=== PATIENT | female | born 1945 | race Caucasian/White ===

== ENCOUNTER 2019-10-09 00:37 | Day surgery (SDC) | payer OTHER, SELFPAY ==
[2019-10-02 13:42] VITALS: BMI 26.5
[2019-10-09 06:33] VITALS: BP 153/82; PULSE 119; RESP 20; TEMP 36.2; O2SAT 100
[2019-10-09] MEDS: LACTATED RINGERS 1,000 ML 150 ML IV CONT (06:51)
--- NOTE | 2019-10-09 07:13 | WPDANESEPPF ---
Anes - Initial Pre Proc Eval Procedure: Operation Date: 10/09/19 07:30 Proposed Procedures p Screening Colonoscopy - Vinod Sprague MD Date/Time: 10/09/19 07:13 Surgeon: Vinod Sprague MD Pre Op Diagnosis: Neoplasm Screening Patient Data Age: 74 Gender: F Height: 5 ft 3 in Weight: 67.6 kg Last Vital Signs Temp 97.2 F L 10/09/19 06:33 Pulse 119 H 10/09/19 06:33 Resp 20 10/09/19 06:33 BP 153/82 H 10/09/19 06:33 Pulse Ox 100 10/09/19 06:33 Allergies Allergy/AdvReac Type Severity Reaction Status Date / Time BENCONATATE AdvReac Severe COUGH Uncoded 10/09/19 06:53 Home Medications Medication Instructions Recorded Confirmed Type tramadol 50 mg tablet 50 mg PO Q8H PRN #30 tablet 07/08/19 10/02/19 Rx lisinopril 30 mg tablet 30 mg PO DAILY #90 tablet 07/11/19 10/02/19 Rx minocycline 100 mg capsule 100 mg PO DAILY #90 cap 07/11/19 10/02/19 Rx ciprofloxacin HCl 500 mg tablet 500 mg PO Q12H #14 tablet 09/30/19 10/02/19 Rx metronidazole 500 mg tablet 500 mg PO Q8H #21 tablet 09/30/19 10/02/19 Rx Patient hx anesthesia problems: none Family hx anesthesia problems: none PMFSH Past Medical History Medical History (Updated 10/09/19 @ 07:13 by Vincenzo Patterson MD) Chronic kidney disease, stage 3 (moderate) H/O: lung cancer Hypertension Hypertensive kidney disease with CKD stage III Pure hyperglyceridemia Family History Family History (Updated 01/26/18 @ 08:54 by DOCTOR UNKNOWN) Mother Hypertension Family history of malignant neoplasm Family history of malignant neoplasm of ovary, Onset Age: 93 Sibling Hypertension Family history of liver disease Father Family history of lung cancer, Onset Age: 72 Other Family history of colonic diverticulitis Family history of coronary artery disease Social History Social History (Updated 06/20/19 @ 13:08 by Arina Dia) Smoking status: Former smoker Smoking end date: 08/07/98 Alcohol intake: never Substance use: never Substance use type: does not use Anes - Eval Final PreProcedure Day of Procedure 10/09/19 07:13 Patient weight: normal Heart: regular rate and rhythm Lungs: clear to auscultation Airway: Mallampati scale class III Neurological: alert and oriented Last oral intake: >/= 8 hours ASA classification: III Emergent: no Anesthetic plan: proceed Anesthesia type and monitoring: general GIVS and standard monitoring Informed Consent: The patient's anesthetic plan and its attendant risks and benefits were discussed with the patient/family/POA. Questions were solicited and answers provided to the satisfaction of the patient/family/POA.
--- NOTE | 2019-10-09 07:23 | P.HP_ITS ---
History of Present Illness History of Present Illness Consent: Risks, benefits, and alternatives have been discussed and questions answered. Patient agrees to proceed with procedure. Chief complaint: Neoplasm Screening Narrative: Tiffany Dempsey is a 74 year old female referred for screening colonoscopy. This is her 1st colonoscopy. She has had 2 episodes of diverticulitis since June, just finishing her 2nd round of antibiotics. [facility] Past Medical History Medical History Chronic kidney disease, stage 3 (moderate) H/O: lung cancer Hypertension Hypertensive kidney disease with CKD stage III Pure hyperglyceridemia Family History Family History Mother Hypertension Family history of malignant neoplasm Family history of malignant neoplasm of ovary, Onset Age: 93 Sibling Hypertension Family history of liver disease Father Family history of lung cancer, Onset Age: 72 Other Family history of colonic diverticulitis Family history of coronary artery disease Social History Social History Smoking status: Former smoker Smoking end date: 08/07/98 Alcohol intake: never Substance use: never Substance use type: does not use Meds Home Medications and Allergies Home Medications Medication Instructions Recorded Confirmed Type tramadol 50 mg tablet 50 mg PO Q8H PRN #30 tablet 07/08/19 10/02/19 Rx lisinopril 30 mg tablet 30 mg PO DAILY #90 tablet 07/11/19 10/02/19 Rx minocycline 100 mg capsule 100 mg PO DAILY #90 cap 07/11/19 10/02/19 Rx ciprofloxacin HCl 500 mg tablet 500 mg PO Q12H #14 tablet 09/30/19 10/02/19 Rx metronidazole 500 mg tablet 500 mg PO Q8H #21 tablet 09/30/19 10/02/19 Rx Allergies Allergy/AdvReac Type Severity Reaction Status Date / Time BENCONATATE AdvReac Severe COUGH Uncoded 10/09/19 06:53 Vital Signs Vital Signs - 24 hr 10/09/19 06:33 Temperature 36.2 C L Pulse Rate 119 H Respiratory Rate 20 Blood Pressure 153/82 H Pulse Oximetry 100 Exam Resp: Auscultation: clear to auscultation bilaterally Cardio: Rate: regular rate Rhythm: regular rhythm GI: GI Palp: Yes Soft to palpation and No Tenderness to palpation present (GI) Assessment and Plan Assessment and plan (1) Colon cancer screening: Code(s): Z12.11 - Encounter for screening for malignant neoplasm of colon Status: Acute Assessment and Plan: Colonoscopy with possible biopsy or polypectomy or cautery or injection of substances.
[2019-10-09 07:45] VITALS: BP 109/50; PULSE 106; RESP 20; O2SAT 100
[2019-10-09 07:55] VITALS: BP 129/71; PULSE 112; RESP 18; O2SAT 100
[2019-10-09 08:05] VITALS: BP 148/83; PULSE 110; RESP 20; O2SAT 100
== END 2019-10-09 08:15 | disposition home or self-care (01) ==
PROVIDERS: PCP Family Medicine; Visit Provider Internal Medicine Gastroenterology
PROC: 0DJD8ZZ Inspection of Lower Intestinal Tract, Via Natural or Artificial Opening Endoscopic (ICD-10-PCS; CPT 45378; principal; 2019-10-09 07:30)
DX: Z12.11 Encounter for screening for malignant neoplasm of colon (principal); K57.32 Diverticulitis of large intestine without perforation or abscess without bleeding; K58.9 Irritable bowel syndrome, unspecified; I12.9 Hypertensive chronic kidney disease with stage 1 through stage 4 chronic kidney disease, or unspecified chronic kidney disease; N18.3 Chronic kidney disease, stage 3 (moderate); E78.1 Pure hyperglyceridemia; Z85.118 Personal history of other malignant neoplasm of bronchus and lung; Z87.891 Personal history of nicotine dependence
CPT/HCPCS: G0121; J2704; J7120

== ENCOUNTER 2019-10-14 11:23 | Outpatient (CLI) | payer OTHER, SELFPAY ==
--- NOTE | ~2019-10-14 | US_ITS ---
EXAMINATION: US venous doppler [facility] DATE: 10/14/2019 11:57 INDICATION: Lower limb edema. TECHNIQUE: Grayscale ultrasound images without and with compression and Doppler ultrasound images of the bilateral lower extremity veins were obtained. COMPARISON: Ultrasound 02/26/2018 FINDINGS: The visualized portions of right common femoral vein, profunda (deep) femoral vein, femoral vein, pop liteal vein, posterior tibial veins, and greater saphenous vein outflow are patent. There is thrombus in the right peroneal veins. The visualized portions of left common femoral vein, profunda femoral vein, femoral vein, popliteal v ein, peroneal veins, posterior tibial veins, and greater saphenous vein outflow are patent. IMPRESSION: 1. Deep vein thrombosis involving the right peroneal veins. Reviewed, dictated and finalized at location A.
[2019-10-14 12:47] LABS: Hematocrit 33.6 % (37.0-47.0); Hemoglobin 10.9 g/dL (12.0-15.0); Mean Corpuscular HGB Conc 32.4 g/dl (32-36); Mean Corpuscular Hemoglobin 29.9 pg (26-34); Mean Corpuscular Volume 92.1 fl (80-100); Mean Platelet Volume 11.2 fl (7.4-10.4); Platelet Count Result 190 k/mm3 (150-375); Red Blood Count 3.65 M/mm3 (4.2-5.4); Red Cell Distribution Width 13.9 % (11.5-14.5); White Blood Count 6.8 K/mm3 (4.5-10.0)
[2019-10-14 13:41] LABS: Alanine Aminotransferase 19 U/L (4-35); Albumin Level 3.4 g/dL (3.5-5.1); Alkaline Phosphatase 70 U/L (38-126); Aspartate Amino Transferase 27 U/L (14-36); Bilirubin,Total 0.3 mg/dL (0.2-1.3); Blood Urea Nitrogen 15 mg/dL (7-17); Carbon Dioxide 24 mmol/L (22-30); Chloride 110 mmol/L (98-107); Estimated Glomerular Filt Rate 48; Glucose 83 mg/dL (65-105); Potassium 2.8 mmol/L (3.4-5.0); Sodium 140 mmol/L (137-145)
== END 2019-10-14 11:24 | disposition home or self-care (01) ==
PROVIDERS: PCP Family Medicine; Visit Provider Family Medicine
DX: I82.451 Acute embolism and thrombosis of right peroneal vein (principal); I10 Essential (primary) hypertension; R53.83 Other fatigue
CPT/HCPCS: 36415; 80053; 85027; 93970

== ENCOUNTER 2019-12-27 09:38 | Inpatient (IN) | payer OTHER, SELFPAY ==
[2019-12-27] VITALS (10 sets, daily range): BP systolic 107–129; BP diastolic 57–73; PULSE 86–117; RESP 13–18; TEMP 36.6–37.2; O2SAT 98–100; BMI 24.7
--- NOTE | ~2019-12-27 | XR_ITS ---
EXAMINATION: XR chest 1V portable DATE: 12/27/2019 11:02 INDICATION: Cough TECHNIQUE: frontal view of the chest was obtained. COMPARISON: Chest radiograph dated 02/08/2018 FINDINGS: Is consistent with interval left upper lobectomy with volume loss in the left mid thorax and suture l ine at the left hilum which appears elevated. Hazy opacity in the left upper lung zone with curved in ferior margin. Blunting at the left costophrenic angle suggesting small pleural effusion. Dental Chair Assembler y hyperexpansion of the right lung which remains clear with no airspace opacities or pleural effusion . No pulmonary edema or pneumothorax. Heart size is normal with slight leftward shift resulting from the volume loss. Atherosclerotic aorta. IMPRESSION: 1. Postoperative change of prior left upper lobectomy. 2. Hazy opacity with well-defined smoothly curved inferior margin in the left upper lung zone suggest ing atelectasis/scarring or loculated portion of a small left pleural effusion. Pneumonia considered unlikely. Reviewed, dictated and finalized at location A. IMPRESSION: 1. Postoperative change of prior left upper lobectomy. 2. Hazy opacity with well-defined smoothly curved inferior margin in the left u pper lung zone suggesting atelectasis/scarring or loculated portion of a small left pleural effusion. Pneumonia considered unlikely.
--- NOTE | ~2019-12-27 | CT_ITS ---
EXAMINATION: CT abdomen pelvis w con DATE: 12/27/2019 12:02 INDICATION: Abdominal pain. Fever. Red tinge and colostomy. TECHNIQUE: Computed tomography (CT) of the abdomen and pelvis was performed with 100 mL Omnipaque-350 intravenous contrast. Automated exposure control and iterative reconstruction technique were employe d. The dose-length product was 445.49 mGy-cm. COMPARISON: 06/25/2019 FINDINGS: Lung bases are clear. Tiny left pleural effusion. Heart size is normal. No pericardial effusion. Smal l sliding-type hiatal hernia. Small diverticulum at the gastric fundus. Focal hepatic steatosis at th e ligamentum teres. Cholecystectomy clips at the gallbladder fossa. Spleen, pancreas, bilateral adren al glands and right kidney are normal. Small region of cortical scarring at the interpolar region of the left kidney. Subtotal colectomy with residual Bolden's pouch in the pelvis. Right lower quadrant and ileostomy. T here is small amount of herniated parastomal fat. There is skin thickening and mild/inflammatory stra nding surrounding the ostomy likely related to secondary cellulitis. No bowel obstruction. Bladder an d uterus are normal. Minimal ascites along the mesentery in the cul-de-sac. No abscess or free intrap eritoneal gas. No pathologically enlarged abdominal or pelvic lymphadenopathy. There is calcified atherosclerosis of the aorta and bilateral iliac and femoral arteries. Mild right-sided saccular ectasia of the infrar enal abdominal aorta with aorta measuring 2.8 x 2.5 cm at this level. There is a small amount of subc utaneous gas along a superficially partially dehiscent midline surgical wound. Chronic mild anterior wedging at T11 and T12. Scattered mild degenerative skeletal changes in the spine and bilateral hip a nd sacroiliac joints. IMPRESSION: 1. Postoperative changes of interval subtotal colectomy with right lower quadrant end ileostomy. Trac e amount of ascites. No abscess or other acute intra-abdominal/pelvic process. 2. Small sliding-type hiatal hernia. 3. Tiny left pleural effusion. Reviewed, dictated and finalized at location A. IMPRESSION: 1. Postoperative changes of interval subtotal colectomy with right lower quadra nt end ileostomy. Trace amount of ascites. No abscess or other acute intra-abdo wendy/pelvic process. 2. Small sliding-type hiatal hernia. 3. Tiny left pleural effusion.
--- NOTE | 2019-12-27 10:01 | ECG_ITS ---
Measurements Intervals [place] Rate: 109 P: 78 VT: 223 QRS: 27 QRSD: 98 T: 102 QT: 365 QTc: 493 Interpretive Statements SINUS TACHYCARDIA WITH FIRST DEGREE AV BLOCK CONSIDER INFERIOR INFARCT, AGE INDETERMINATE BORDERLINE ST-T WAVE ABNORMALITY- ANTEROLAT/LAT LEADS ABNORMAL ECG Electronically Signed On 12-27-2019 10:48:40 CDT by Kamari Adair D.O.
[2019-12-27 10:32] LABS: Basophils Absolute Auto 0.1 K/mm3 (0.0-0.1); Basophils Percent Auto 0.9 % (0.2-1.2); Eosinophils Absolute Auto 0.3 K/mm3 (0-0.3); Eosinophils Percent Auto 3.3 % (0-4.4); Hematocrit 36.2 % (37.0-47.0); Hemoglobin 11.2 g/dL (12.0-15.0); Immature Granulocyte Absolute 0.08 K/mm3 (0.00-0.031); Immature Granulocyte Percent A 0.8 % (0-0.5); Lymphocytes Absolute Auto 1.73 K/mm3 (0.9-3.2); Lymphocytes Percent Auto 17.7 % (18.3-44.2); Mean Corpuscular HGB Conc 30.9 g/dl (32-36); Mean Corpuscular Hemoglobin 28.4 pg (26-34); Mean Corpuscular Volume 91.6 fl (80-100); Mean Platelet Volume 10.9 fl (7.4-10.4); Monocytes Absolute Auto 0.8 K/mm3 (0.1-0.6); Monocytes Percent Auto 8.6 % (2.6-8.5); Neutrophils Absolute Auto 6.7 K/mm3 (1.3-6.7); Neutrophils Percent Auto 68.7 % (45.5-73.1); Platelet Count Result 386 k/mm3 (150-375); Red Blood Count 3.95 M/mm3 (4.2-5.4); Red Cell Distribution Width 13.9 % (11.5-14.5); White Blood Count 9.8 K/mm3 (4.5-10.0)
[2019-12-27] MEDS: SODIUM CHLORIDE 0.9% IV 1,000 ML 999 ML IV CONT (10:32)
--- NOTE | 2019-12-27 10:33 | ED.GENADULT ---
HPI - General Adult General Chief complaint: Unspecified Stated complaint: red tinge in colostomy Time Seen by Provider: 12/27/19 09:45 Source: RN notes reviewed History of Present Illness HPI narrative: Patient presents emergency department from [facility] via EMS for possible infection. Per the [facility] staff the patient was noted to be mildly grayish in color today as well as a mildly elevated temperature and heart rate. Patient states she has a recent history of having a colon resection approximately 2 weeks ago in [facility] currently has a wound VAC in place as well as an ileostomy patient currently denies any complaints she denies any known fevers denies any chest pain shortness of breath abdominal pain nausea or vomiting Related Data Home Medications Medication Instructions Recorded Confirmed naloxone [Narcan] 1 spray INTRANASAL Q2-3M PRN 12/27/19 ondansetron HCl [Zofran] 12/27/19 oxycodone-acetaminophen 1 tablet PO Q4H PRN 12/27/19 pantoprazole 40 mg PO QAM 12/27/19 Allergies Allergy/AdvReac Type Severity Reaction Status Date / Time BENCONATATE AdvReac Severe COUGH Uncoded 12/27/19 09:46 Review of Systems Review of Systems: Narrative: Gen.: Reported fever per fdc denies chills Eyes: Denies eye pain or visual change ENT: Denies congestion Respiratory: Denies shortness of breath or cough CV: Denies chest pain or palpitations GI: See HPI denies burning, urgency, frequency or hematuria Musculoskeletal: Denies back pain or muscle pain Neuro: Denies numbness, tingling, weakness or focal weakness Skin: Denies rash Except as documented, all other systems reviewed and negative [facility] Past Medical History Medical History Chronic kidney disease, stage 3 (moderate) Diverticulitis H/O: lung cancer Hypertension Hypertensive kidney disease with CKD stage III Hypokalemia Pure hyperglyceridemia Surgical History Surgical History History of tubal ligation Social History Social History Smoking packs per day: 1 Smoking cigarettes per day: 20.0 Years smoked: 50 Smoking pack-years: 50.00 Smoking status: Former smoker Tobacco type: cigarettes Second hand tobacco smoke exposure: Yes Smoking end date: 08/07/98 Alcohol intake: never Substance use: never Substance use type: does not use Gender identity (if verbalized by the patient): Female Exam Narrative: Exam Narrative: APPEARANCE: No acute distress, nontoxic, resting in bed EYES: EOMI HEENT: Normocephalic, atraumatic, OMM RESPIRATORY: No respiratory distress Clear to auscultation bilaterally with no rhonchi wheezing or rales. CARDIOVASCULAR: Regular rate and rhythm without murmurs rubs or gallops. ABDOMINAL: Soft, nondistended, tender palpation around ileostomy with large area of erythema consistent with cellulitis, midline wound VAC in place MUSCULOSKELETAl: Moves all extremities. No clubbing, cyanosis or edema. NEURO: Awake and alert. Following commands, speech normal, no focal deficits SKIN:: Warm, dry. No rashes lesions or abrasions PSYCHIATRIC: Normal affect/mood, Course Course Emergency Course: Wound care team came down to emergency department wound VAC was removed at this time there is purulent material that can be expressed from midline wound Called and discussed with Dr. Anaya presentation work-up. At this time recommends patient be started on Zosyn and Flagyl recommends wound care follow with patient for management of wound VAC Discussed with Dr. Bills presentation and work-up. Agrees with admission at this time. Request consult to general surgery Discussed with patient and family results of workup and diagnosis. Discussed need for admission. Patient and family understand and agree to current treatment plan Vital Signs Vital signs: Vital Signs T
[2019-12-27 10:43] LABS: INR 3.2; Prothrombin Time 31.8 Seconds (11.1-14.7)
[2019-12-27 10:47] LABS: Lactic Acid Reflex 1.3 mmol/L (0.7-2.1)
--- NOTE | 2019-12-27 10:53 | PC.NURSE ---
Ostomy with pouch noted to the right side of the abdomen. There is a tegaderm in place on the lateral side of the pouch with liquid stool noted to be leaking from under the pouch and sitting against the skin under this tegaderm. The right lower portion of her abdomen and area around the lateral side of the ostomy is noted to be excoriated, reddend, and reported to be very tender to the touch. Area was cleaned and covered with non-stick dressing and wound care called for further advice.
[2019-12-27 10:59] LABS: Add Urine Microscopic? YES; Appearance Urine Clear (Clear); Bilirubin Urine Negative (Negative); Blood Urine Negative (Negative); Budding Yeast Urine Present /hpf; Color Urine Amber (Yellow); Glucose Urine UA Negative (Negative); Ketones Urine Negative (Negative); Leukocyte Esterase Ur Negative LEU/UL (Negative); Mucus Urine Heavy /lpf; Nitrate Urine Negative (Negative); Protein Urine 1+ mg/dL (Negative); RBC Urine 0-2 /hpf (0-2); Specific Grav Ur 1.029 (1.001-1.035); Urobilinogen Urine Negative mg/dL (<2.0)
[2019-12-27 11:02] LABS: Alanine Aminotransferase 23 U/L (4-35); Albumin Level 3.6 g/dL (3.5-5.1); Alkaline Phosphatase 150 U/L (38-126); Aspartate Amino Transferase 44 U/L (14-36); Bilirubin,Total 0.5 mg/dL (0.2-1.3); Blood Urea Nitrogen 24 mg/dL (7-17); Calcium 8.9 mg/dL (8.4-10.2); Carbon Dioxide 27 mmol/L (22-30); Chloride 101 mmol/L (98-107); Estimated CRCL calculation 37 ml/min; Estimated Glomerular Filt Rate > 60; Glucose 134 mg/dL (65-105); Potassium 4.8 mmol/L (3.4-5.0); Sodium 134 mmol/L (137-145)
[2019-12-27] MEDS: TOLNAFTATE 1% POWDER 45 GM BTL 1 APPLIC TOPICAL (11:08)
[2019-12-27] MEDS: MORPHINE SULFATE 2 MG/ML INJ IV PUSH (11:14)
[2019-12-27] MEDS: metroNIDAZOLE 500 MG/ISO 100ML 500 MG/100 ML BAG 100 MG IVPB ×2 (14:34→21:09)
--- NOTE | 2019-12-27 15:10 | ADMGEN ---
This patient, Tiffany Dempsey, was admitted to [facility] Surg Room 333-01. Patient/family oriented to hospital policies and general routines including ID bracelet, bed and alarms, visiting hours, pain management, procedures, bathroom and other care routines, personal items, smoking policy, room service/diet, and visiting hours. Valuables list has been completed. Information on how to activate the Rapid Response Team has been discussed. Patient/Family are encouraged to report perceived risks to care and to ask questions if they do not understand what they are told or what they should do.
[2019-12-27] MEDS: SODIUM CHLORIDE 0.9% IV 1,000 ML 80 ML IV CONT (15:21)
--- NOTE | 2019-12-27 19:08 | PM.IMHP ---
H&P: HPI History of Present Illness Chief complaint: Cellulitis abdomen/postop surgical infection Narrative: Tiffany Dempsey is a 74 year old female who is in rehab at [facility]. The patient is there since she had a colon perforation status post exploratory lap, total colectomy, and ileostomy, wound VAC placement on 12/06/2019. She was discharged from [facility] on 12/13/2019. The patient had a previous colonoscopy and was found to have a: Mask. The patient went to [facility] since she was visiting family there. The patient had small-bowel obstruction due to this mass and had the above-mentioned surgery performed. The patient has been having some redness and swelling around her ostomy bag. The patient stated that she has severe pain whenever the ostomy bag is changed. She denies any fevers or chills. She stated she previously was check for COVID twice prior to committing the hospital today and was found to be negative. However she was checked again today for COVID due to staying in a facility where there was a COVID outbreak. Her results are pending. Dr. Scott here was consulted. The patient was started on Flagyl and Zosyn. Wound care as also been consulted. Date of service 12/27/2019 Review of Systems Review of Systems: All systems reviewed & are unremarkable except as noted in HPI and below Constitutional: Constitutional: Reports as per HPI and Reports no additional constitutional complaints Eyes: Eyes: Reports as per HPI and Reports no additional eye complaints ENT: Reports system reviewed and no additional complaints, except as documented and Reports Normal hearing present Cardiovascular: Cardiovascular: Reports no additional cardiovascular complaints Respiratory: Respiratory: Reports no additional respiratory complaints and Reports no additional respiratory complaints Gastrointestinal: Gastrointestinal: Reports as per HPI and Reports no additional gastrointestinal complaints Musculoskeletal: Musculoskeletal: Reports no additional musculoskeletal complaints Integumentary/Breasts: Skin/Breast: Reports system reviewed and no additional complaints, except as docu and Reports as per HPI Neurologic: Reports system reviewed and no additional complaints, except as documented, Reports as per HPI and Reports Normal hearing present Psychiatric: Psychiatric: Reports no additional psychiatric complaints and Reports as per HPI Endocrine: Endocrine: Reports no additional endocrine complaints Hematologic/Lymphatic: Hematologic/Lymphatic: Reports no additional hematologic/lymphatic complaints Allergic/Immunologic: Allergic/Immunologic: Reports no additional allergic/immunologic complaints [facility] Past Medical History Medical History (Updated 12/27/19 @ 19:39 by Mariann Broussard NP) Atrial fibrillation Paroxysmal Chronic kidney disease, stage 3 (moderate) Depression Diverticulitis With perforation status post exploratory laparotomy DVT (deep venous thrombosis) Left leg H/O: lung cancer She had left upper lobectomy but no chemo or radiation. Hypertension Hypertensive kidney disease with CKD stage III Hypokalemia Pure hyperglyceridemia Surgical History Surgical History (Updated 12/27/19 @ 19:28 by Mariann Broussard NP) H/O exploratory laparotomy Due to severe diverticulitis of the colon with perforation H/O total colectomy History of tubal ligation Hx of cholecystectomy S/P lobectomy of lung Family History Family History Mother Hypertension Family history of malignant neoplasm Family history of malignant neoplasm of ovary, Onset Age: 93 Sibling Hypertension Family history of liver disease Father Family history of lung cancer, Onset Age: 72 Other Family history of colonic diverticulitis Family history of coronary artery disease Social History Social Hist
[2019-12-27] MEDS: RIVAROXABAN 20 MG TABLET PO (21:08)
[2019-12-27] MEDS: ACIDOPHILUS/BULGARICUS CHEWABLE TABLET 1 TABLET PO (21:09)
[2019-12-27] MEDS: busPIRone HCL 5 MG TABLET PO (21:09)
[2019-12-28] VITALS (7 sets, daily range): BP systolic 124–135; BP diastolic 60–81; PULSE 90–99; RESP 16–20; TEMP 36.3–36.6; O2SAT 96–100; BMI 24.7
[2019-12-28] MEDS: metroNIDAZOLE 500 MG/ISO 100ML 500 MG/100 ML BAG 100 MG IVPB ×3 (02:27→19:24)
[2019-12-28] MEDS: SODIUM CHLORIDE 0.9% IV 1,000 ML 80 ML IV CONT ×2 (03:37→18:19)
[2019-12-28 07:36] LABS: Basophils Absolute Auto 0.1 K/mm3 (0.0-0.1); Basophils Percent Auto 0.9 % (0.2-1.2); Eosinophils Absolute Auto 0.2 K/mm3 (0-0.3); Eosinophils Percent Auto 3.5 % (0-4.4); Hemoglobin 9.8 g/dL (12.0-15.0); Immature Granulocyte Absolute 0.06 K/mm3 (0.00-0.031); Lymphocytes Absolute Auto 0.99 K/mm3 (0.9-3.2); Lymphocytes Percent Auto 17.3 % (18.3-44.2); Mean Corpuscular HGB Conc 31.6 g/dl (32-36); Mean Corpuscular Hemoglobin 28.7 pg (26-34); Mean Corpuscular Volume 90.9 fl (80-100); Mean Platelet Volume 10.3 fl (7.4-10.4); Monocytes Absolute Auto 0.4 K/mm3 (0.1-0.6); Monocytes Percent Auto 7.7 % (2.6-8.5); Neutrophils Percent Auto 69.6 % (45.5-73.1); Platelet Count Result 268 k/mm3 (150-375); Red Blood Count 3.41 M/mm3 (4.2-5.4); Red Cell Distribution Width 13.9 % (11.5-14.5); White Blood Count 5.7 K/mm3 (4.5-10.0)
[2019-12-28 07:47] LABS: Blood Urea Nitrogen 16 mg/dL (7-17); Calcium 7.8 mg/dL (8.4-10.2); Carbon Dioxide 25 mmol/L (22-30); Chloride 105 mmol/L (98-107); Estimated CRCL calculation 42 ml/min; Estimated Glomerular Filt Rate > 60; Glucose 94 mg/dL (65-105); Potassium 4.3 mmol/L (3.4-5.0); Sodium 136 mmol/L (137-145)
[2019-12-28] MEDS: busPIRone HCL 5 MG TABLET PO ×2 (08:54→20:27)
[2019-12-28] MEDS: MINOCYCLINE HCL 50 MG CAPSULE 100 MG PO (08:54)
[2019-12-28] MEDS: ACIDOPHILUS/BULGARICUS CHEWABLE TABLET 1 TABLET PO ×2 (08:55→20:27)
--- NOTE | 2019-12-28 11:52 | PM.CNGS ---
Assessment and Plan Assessment and plan (1) Superficial incisional surgical site infection: Code(s): T81.41XA - Infection following a procedure, superficial incisional surgical site, initial encounter Status: Acute Assessment and Plan: I have reviewed the imaging and discussed the wound care with our wound ostomy care nurses. She does not have any evidence of deep infection on the CT. This will likely be able to be treated with local wound care. Will continue iodoform packing changes through midline incision over the weekend to allow for purulence drainage to completely drain. Patient will need better ileostomy care as she appears to have problems with frequent drainage which is causing excoriation to the surrounding skin. Will continue to follow with patient and make further recommendations as she progresses. Hopefully wound VAC will be able to be replaced on midline wound after a few days of packing. (2) Ileostomy, has currently: Code(s): Z93.2 - Ileostomy status Status: Acute (3) Abdominal wall cellulitis: Code(s): L03.311 - Cellulitis of abdominal wall Status: Acute History of Present Illness Consult details Consult date: 12/28/19 Reason for consult: wound care Requesting physician: Karlo Franklin DO Narrative: This is a 74-year-old woman who presented to the emergency department yesterday with multiple complaints. She is currently in a care home after undergoing subtotal colectomy in early December in [place], [place]. She was found to have a sigmoid stricture and perforated cecum at that time. She states that the pathology came back benign. She had a wound VAC placed over a large open midline incision. She has been having difficulty with wound care due to leaking of her end ileostomy and purulence drainage from the midline wound. Review of Systems Review of Systems: All systems reviewed & are unremarkable except as noted in HPI and below Eyes: Eyes: Denies change in vision ENT: Denies hearing loss, Denies neck pain and Denies sore throat Cardiovascular: Cardiovascular: Denies chest pain and Denies dyspnea Respiratory: Respiratory: Denies cough, Denies dyspnea and Denies wheezing Genitourinary: Genitourinary: Denies hematuria and Denies dysuria Musculoskeletal: Musculoskeletal: Denies arthralgias, Denies joint swelling and Denies neck pain Allergic/Immunologic: Allergic/Immunologic: Denies wheezing PMFSH Past Medical History Medical History Atrial fibrillation Paroxysmal Chronic kidney disease, stage 3 (moderate) Depression Diverticulitis With perforation status post exploratory laparotomy DVT (deep venous thrombosis) Left leg H/O: lung cancer She had left upper lobectomy but no chemo or radiation. Hypertension Hypertensive kidney disease with CKD stage III Hypokalemia Pure hyperglyceridemia Surgical History Surgical History H/O exploratory laparotomy Due to severe diverticulitis of the colon with perforation H/O total colectomy History of tubal ligation Hx of cholecystectomy S/P lobectomy of lung Family History Family History Mother Hypertension Family history of malignant neoplasm Family history of malignant neoplasm of ovary, Onset Age: 93 Sibling Hypertension Family history of liver disease Father Family history of lung cancer, Onset Age: 72 Other Family history of colonic diverticulitis Family history of coronary artery disease Social History Social History Social History: The patient is currently in rehab at [facility]. She has 2 sons. She is . She desires to be a full code. She states that she does not have a durable power estate planning attorney for healthcare. She
[2019-12-28 13:23] LABS: SARS-CoV-2 RNA PCR Negative
--- NOTE | 2019-12-28 15:05 | PM.IMPN ---
Progress Note: A&P Assessment and Plan (1) Superficial incisional surgical site infection: Code(s): T81.41XA - Infection following a procedure, superficial incisional surgical site, initial encounter Status: Acute Assessment and Plan: Surgery consulted and appreciate recommendations. Infection at surgical incision site. Wound care has been consulted. Will continue IV antibiotics for now; Flagyl and Zosyn Monitor Appreciate further recs from General Surgery (2) Abdominal wall cellulitis: Code(s): L03.311 - Cellulitis of abdominal wall Status: Acute Assessment and Plan: The patient was started on Flagyl and Zosyn from ER; this continues. She has redness around the ostomy bag. She has a dressing to the mid abdomen as well. BCx negative to date x 2; Gram stain from wound showed no organisms seen, culture pending. General Surgery following and appreciate recommendations Will continue IV antibiotics for now Monitor CBC WC consulted for further care (3) Hypertension: Code(s): I10 - Essential (primary) hypertension Status: Chronic Assessment and Plan: BP 120s sys Continue home antihypertensives (4) Depression: Code(s): F32.9 - Major depressive disorder, single episode, unspecified Status: Chronic Assessment and Plan: No acute issues Continue BuSpar (5) Atrial fibrillation: Code(s): I48.91 - Unspecified atrial fibrillation Status: Chronic Assessment and Plan: Rate controlled; No CP/palpitations Continue Xarelto continue Diltiazem (6) Person under investigation for COVID-19: Code(s): Z20.828 - Contact with and (suspected) exposure to other viral communicable diseases Status: Ruled-out Assessment and Plan: Test is negative, she is off isolation (7) DVT (deep venous thrombosis): Code(s): I82.409 - Acute embolism and thrombosis of unspecified deep veins of unspecified lower extremity Status: Chronic Assessment and Plan: Continue Xarelto. Subjective Date/time seen: 12/28/19 15:05 Interval history: Patient is a 74 yo F with history of CKDIII, a. fib (on a/c, rate controlled), HTN, and recent severe diverticulitis with colon perforation and peritonitis s/p exploratory laparotomy, total colectomy, and ileostomy roughly 3 weeks ago at [facility] who is here for evaluation and management of superficial incisional surgical site infection. Patient states she is feeling okay today. Has a mild headache, and occasionally nauseas but no vomiting. Otherwise has no other complaints. Denies f/c/s, cp/palpitations, sob/cough, vomiting, abd pain, dysuria, calf pain/swelling. Review of Systems Review of Systems: All systems reviewed & are unremarkable except as noted in HPI and below Exam Narrative: Exam Narrative: Patient sitting upright in bed, eating lunch at time of visit Const: General: cooperative, comfortable, no acute distress, well developed, alert and awake Nutritional Appearance: obese Orientation/consciousness: patient oriented x3 HENMT: Head: normocephalic and atraumatic General nose exam: Normal nares present Face and sinus: face symmetric Mouth: Yes moist mucous membranes Eyes: General: appearance normal, both eyes and all related structures Sclera: abnormal sclerae (bluish tint to b/l sclera) Pupils: Equal, round and reactive pupils present EOM: EOMs intact bilaterally Neck: Neck: no lymphadenopathy, trachea midline and supple Resp: Effort & Inspection: normal respiratory effort Auscultation: clear to auscultation bilaterally Cardio: Rate: regular rate Rhythm: abnormal rhythm irregularly irregula
[2019-12-28] MEDS: ACETAMINOPHEN 325 MG TABLET 650 MG PO (15:14)
[2019-12-28] MEDS: RIVAROXABAN 20 MG TABLET PO (18:18)
[2019-12-28] MEDS: ONDANSETRON HCL ODT 4 MG TABLET PO (19:44)
[2019-12-28] MEDS: metroNIDAZOLE 500 MG/ISO 100ML 500 MG/100 ML BAG 75 MG IVPB (22:30)
[2019-12-29 02:00] VITALS: BP 142/68; PULSE 95; RESP 18; TEMP 36.4; O2SAT 100
[2019-12-29] MEDS: metroNIDAZOLE 500 MG/ISO 100ML 500 MG/100 ML BAG 75 MG IVPB ×3 (03:09→16:06)
[2019-12-29 06:00] VITALS: BP 150/73; PULSE 86; RESP 18; TEMP 36.5; O2SAT 100
[2019-12-29 06:46] LABS: Hematocrit 29.9 % (37.0-47.0); Hemoglobin 9.3 g/dL (12.0-15.0); Mean Corpuscular HGB Conc 31.1 g/dl (32-36); Mean Corpuscular Hemoglobin 28.2 pg (26-34); Mean Corpuscular Volume 90.6 fl (80-100); Mean Platelet Volume 10.6 fl (7.4-10.4); Platelet Count Result 244 k/mm3 (150-375); Red Cell Distribution Width 13.4 % (11.5-14.5); White Blood Count 5.1 K/mm3 (4.5-10.0)
[2019-12-29 06:56] LABS: Blood Urea Nitrogen 11 mg/dL (7-17); Calcium 7.9 mg/dL (8.4-10.2); Carbon Dioxide 22 mmol/L (22-30); Chloride 107 mmol/L (98-107); Estimated CRCL calculation 42 ml/min; Estimated Glomerular Filt Rate > 60; Glucose 92 mg/dL (65-105); Magnesium 1.4 mg/dL (1.6-2.3); Potassium 3.6 mmol/L (3.4-5.0); Sodium 135 mmol/L (137-145)
[2019-12-29] MEDS: ACETAMINOPHEN 325 MG TABLET 650 MG PO ×3 (07:12→19:45)
[2019-12-29] MEDS: POTASSIUM CHLORIDE 20 MEQ TABLET PO (09:25)
[2019-12-29] MEDS: MAGNESIUM SULF 2 GM/WATER 50ML 2 GM/50 ML BAG IVPB (09:25)
[2019-12-29] MEDS: SODIUM CHLORIDE 0.9% IV 1,000 ML 80 ML IV CONT (09:25)
[2019-12-29] MEDS: MINOCYCLINE HCL 50 MG CAPSULE 100 MG PO (09:26)
[2019-12-29] MEDS: busPIRone HCL 5 MG TABLET PO ×2 (09:26→20:08)
[2019-12-29] MEDS: ACIDOPHILUS/BULGARICUS CHEWABLE TABLET 1 TABLET PO ×2 (09:26→20:08)
[2019-12-29 10:00] VITALS: BP 135/69; PULSE 97; RESP 16; TEMP 36.1; O2SAT 100
--- NOTE | 2019-12-29 13:53 | PM.IMPN ---
Progress Note: A&P Assessment and Plan (1) Superficial incisional surgical site infection: Code(s): T81.41XA - Infection following a procedure, superficial incisional surgical site, initial encounter Status: Acute Assessment and Plan: Surgery consulted and appreciate recommendations. Infection at surgical incision site. Wound care has been consulted. Will continue IV antibiotics for now; Flagyl and Zosyn Monitor Appreciate further recs from General Surgery (2) Abdominal wall cellulitis: Code(s): L03.311 - Cellulitis of abdominal wall Status: Acute Assessment and Plan: The patient was started on Flagyl and Zosyn from ER; this continues. BCx negative to date x 2; Gram stain from wound showed no organisms seen, aerobic cx showed growth of skin rafael General Surgery following and appreciate recommendations Will continue IV antibiotics for now Monitor CBC WC consulted for further care (3) Hypertension: Code(s): I10 - Essential (primary) hypertension Status: Chronic Assessment and Plan: BP 130s sys Continue home antihypertensives (4) Depression: Code(s): F32.9 - Major depressive disorder, single episode, unspecified Status: Chronic Assessment and Plan: No acute issues Continue BuSpar (5) Atrial fibrillation: Code(s): I48.91 - Unspecified atrial fibrillation Status: Chronic Assessment and Plan: Rate controlled; No CP/palpitations Continue Xarelto continue Diltiazem (6) DVT (deep venous thrombosis): Code(s): I82.409 - Acute embolism and thrombosis of unspecified deep veins of unspecified lower extremity Status: Chronic Assessment and Plan: Continue Xarelto. Subjective Date/time seen: 12/29/19 13:53 Interval history: Patient is a 74 yo F with history of CKDIII, a. fib (on a/c, rate controlled), HTN, and recent severe diverticulitis with colon perforation and peritonitis s/p exploratory laparotomy, total colectomy, and ileostomy roughly 3 weeks ago at [facility] who is here for evaluation and management of superficial incisional surgical site infection. Patient states she is feeling slightly better today. Mild abdominal pain, but manageable. Still has a mild headaches that resolves with Tylenol. Nauseas but no vomiting today; resolved. Otherwise has no other complaints. Denies f/c/s, cp/palpitations, sob/cough, vomiting, dysuria, calf pain/swelling. Review of Systems Review of Systems: All systems reviewed & are unremarkable except as noted in HPI and below Exam Narrative: Exam Narrative: Patient sitting upright in bed, eating lunch at time of visit Const: General: cooperative, comfortable, no acute distress, well developed, alert and awake Nutritional Appearance: obese Orientation/consciousness: patient oriented x3 HENMT: Head: normocephalic and atraumatic General nose exam: Normal nares present Face and sinus: face symmetric Mouth: Yes moist mucous membranes Eyes: General: appearance normal, both eyes and all related structures Sclera: abnormal sclerae (bluish tint to b/l sclera) Pupils: Equal, round and reactive pupils present EOM: EOMs intact bilaterally Neck: Neck: no lymphadenopathy, trachea midline and supple Resp: Effort & Inspection: normal respiratory effort Auscultation: clear to auscultation bilaterally Cardio: Rate: regular rate Rhythm: abnormal rhythm Heart sounds: no murmurs GI: Inspection: non-distended, incision (incision has packing placed within; no drainage noted), obesity and other (dark ostomy OP noted) GI Palp: Yes abdominal tenderness (mild) and Yes Soft to palpation Auscultation: normal bowel sounds and normoactive bowel kimberly
[2019-12-29 14:00] VITALS: BP 133/70; PULSE 99; RESP 16; TEMP 36.4; O2SAT 100
[2019-12-29] MEDS: RIVAROXABAN 20 MG TABLET PO (17:14)
[2019-12-29] MEDS: metroNIDAZOLE 500 MG/ISO 100ML 500 MG/100 ML BAG 100 MG IVPB (20:08)
[2019-12-29 22:00] VITALS: BP 144/70; PULSE 86; RESP 18; TEMP 36.5; O2SAT 100
[2019-12-30] MEDS: MELATONIN 3 MG TABLET PO (00:16)
[2019-12-30] MEDS: SODIUM CHLORIDE 0.9% IV 1,000 ML 80 ML IV CONT ×2 (01:57→16:59)
[2019-12-30 02:00] VITALS: BP 143/75; PULSE 96; RESP 18; TEMP 36.3; O2SAT 100
[2019-12-30] MEDS: metroNIDAZOLE 500 MG/ISO 100ML 500 MG/100 ML BAG 100 MG IVPB ×4 (02:37→20:20)
[2019-12-30 06:00] VITALS: BP 153/81; PULSE 101; RESP 16; TEMP 36.3; O2SAT 100
[2019-12-30 06:23] LABS: Hematocrit 32.5 % (37.0-47.0); Hemoglobin 10.2 g/dL (12.0-15.0); Mean Corpuscular HGB Conc 31.4 g/dl (32-36); Mean Corpuscular Hemoglobin 28.5 pg (26-34); Mean Corpuscular Volume 90.8 fl (80-100); Mean Platelet Volume 10.1 fl (7.4-10.4); Platelet Count Result 263 k/mm3 (150-375); Red Blood Count 3.58 M/mm3 (4.2-5.4); Red Cell Distribution Width 13.3 % (11.5-14.5)
[2019-12-30 06:41] LABS: Blood Urea Nitrogen 9 mg/dL (7-17); Calcium 7.7 mg/dL (8.4-10.2); Carbon Dioxide 23 mmol/L (22-30); Chloride 106 mmol/L (98-107); Estimated CRCL calculation 54 ml/min; Estimated Glomerular Filt Rate > 60; Glucose 88 mg/dL (65-105); Magnesium 1.7 mg/dL (1.6-2.3); Potassium 3.8 mmol/L (3.4-5.0); Sodium 134 mmol/L (137-145)
[2019-12-30] MEDS: ONDANSETRON HCL ODT 4 MG TABLET PO (08:21)
[2019-12-30] MEDS: ACIDOPHILUS/BULGARICUS CHEWABLE TABLET 1 TABLET PO ×2 (08:22→20:20)
[2019-12-30] MEDS: busPIRone HCL 5 MG TABLET PO ×2 (08:22→20:20)
[2019-12-30] MEDS: MINOCYCLINE HCL 50 MG CAPSULE 100 MG PO (08:22)
[2019-12-30 10:00] VITALS: BP 145/73; PULSE 88; RESP 16; TEMP 37.1; O2SAT 100
[2019-12-30 14:00] VITALS: BP 137/71; PULSE 84; RESP 16; TEMP 36.8; O2SAT 95
--- NOTE | 2019-12-30 16:26 | PM.IMPN ---
Progress Note: A&P Assessment and Plan (1) Superficial incisional surgical site infection: Code(s): T81.41XA - Infection following a procedure, superficial incisional surgical site, initial encounter Status: Acute Assessment and Plan: Surgery consulted and appreciate recommendations. Infection at surgical incision site. Wound care has been consulted. Anaerobic WCx showing light growth of Enterococcus species; sensitivities pending. BCx negative to date x2 Will continue IV Flagyl and Zosyn antibiotics for now and await sensitivities; tailor abx to sensitivities Monitor Appreciate further recs from General Surgery (2) Abdominal wall cellulitis: Code(s): L03.311 - Cellulitis of abdominal wall Status: Acute Assessment and Plan: The patient was started on Flagyl and Zosyn from ER; this continues. Cultures above General Surgery following and appreciate recommendations Will continue IV antibiotics for now Monitor CBC WC consulted for further care (3) Hypertension: Code(s): I10 - Essential (primary) hypertension Status: Chronic Assessment and Plan: BP 130s sys Continue home antihypertensives (4) Depression: Code(s): F32.9 - Major depressive disorder, single episode, unspecified Status: Chronic Assessment and Plan: No acute issues Continue BuSpar (5) Atrial fibrillation: Code(s): I48.91 - Unspecified atrial fibrillation Status: Chronic Assessment and Plan: Rate controlled; No CP/palpitations Continue Xarelto continue Diltiazem (6) DVT (deep venous thrombosis): Code(s): I82.409 - Acute embolism and thrombosis of unspecified deep veins of unspecified lower extremity Status: Chronic Assessment and Plan: Continue Janyrelto. Subjective Date/time seen: 12/30/19 16:26 Interval history: Patient is a 74 yo F with history of CKDIII, a. fib (on a/c, rate controlled), HTN, and recent severe diverticulitis with colon perforation and peritonitis s/p exploratory laparotomy, total colectomy, and ileostomy roughly 3 weeks ago at [facility] who is here for evaluation and management of superficial incisional surgical site infection. Patient states she is feeling much better today. No abdominal pain. Tolerating diet. Otherwise has no other complaints. Denies f/c/s, cp/palpitations, sob/cough, n/v, dysuria, calf pain/swelling. Review of Systems Review of Systems: All systems reviewed & are unremarkable except as noted in HPI and below Exam Narrative: Exam Narrative: Patient lying supine in bed Const: General: cooperative, comfortable, no acute distress, well developed, alert and awake Nutritional Appearance: obese Orientation/consciousness: patient oriented x3 HENMT: Head: normocephalic and atraumatic General nose exam: Normal nares present Face and sinus: face symmetric Mouth: Yes moist mucous membranes Eyes: General: appearance normal, both eyes and all related structures EOM: EOMs intact bilaterally Neck: Neck: trachea midline and supple Resp: Effort & Inspection: normal respiratory effort Auscultation: clear to auscultation bilaterally Cardio: Rate: regular rate Rhythm: abnormal rhythm irregularly irregular Heart sounds: no murmurs GI: Inspection: non-distended, incision (incision has packing placed within; no drainage noted), obesity and other (green, dark ostomy OP noted) GI Palp: Yes abdominal tenderness (mild left sided tenderness) and Yes Soft to palpation Auscultation: normal bowel sounds and normoactive bowel sounds Skin: General skin exam: No normal color (bluish/gómez color to face, predominantly right, and extremities; chronic) and no rashes or lesions noted
[2019-12-30] MEDS: RIVAROXABAN 20 MG TABLET PO (17:06)
[2019-12-30 18:00] VITALS: BP 131/78; PULSE 87; RESP 18; TEMP 36.9; O2SAT 96
[2019-12-30 22:00] VITALS: BP 143/64; PULSE 94; RESP 16; TEMP 36.5; O2SAT 100
[2019-12-31 02:00] VITALS: BP 137/64; PULSE 90; RESP 18; TEMP 36.5; O2SAT 100
[2019-12-31] MEDS: metroNIDAZOLE 500 MG/ISO 100ML 500 MG/100 ML BAG 100 MG IVPB ×2 (02:11→09:12)
[2019-12-31 05:39] LABS: Hematocrit 30.6 % (37.0-47.0); Hemoglobin 9.5 g/dL (12.0-15.0); Mean Corpuscular Hemoglobin 28.4 pg (26-34); Mean Corpuscular Volume 91.6 fl (80-100); Mean Platelet Volume 10.3 fl (7.4-10.4); Platelet Count Result 244 k/mm3 (150-375); Red Blood Count 3.34 M/mm3 (4.2-5.4); Red Cell Distribution Width 13.6 % (11.5-14.5); White Blood Count 5.5 K/mm3 (4.5-10.0)
[2019-12-31 05:49] LABS: Blood Urea Nitrogen 9 mg/dL (7-17); Calcium 7.7 mg/dL (8.4-10.2); Carbon Dioxide 24 mmol/L (22-30); Chloride 108 mmol/L (98-107); Estimated CRCL calculation 47 ml/min; Estimated Glomerular Filt Rate > 60; Glucose 81 mg/dL (65-105); Magnesium 1.6 mg/dL (1.6-2.3); Potassium 3.6 mmol/L (3.4-5.0); Sodium 135 mmol/L (137-145)
[2019-12-31] MEDS: SODIUM CHLORIDE 0.9% IV 1,000 ML 80 ML IV CONT (05:59)
[2019-12-31 06:00] VITALS: BP 154/71; PULSE 90; RESP 16; TEMP 36.6; O2SAT 100
[2019-12-31] MEDS: MINOCYCLINE HCL 50 MG CAPSULE 100 MG PO (09:07)
[2019-12-31] MEDS: ACIDOPHILUS/BULGARICUS CHEWABLE TABLET 1 TABLET PO ×2 (09:07→20:00)
[2019-12-31] MEDS: busPIRone HCL 5 MG TABLET PO ×2 (09:08→20:00)
--- NOTE | 2019-12-31 09:51 | PM.PNGS ---
Progress Note: A&P Assessment and Plan (1) Superficial incisional surgical site infection: Code(s): T81.41XA - Infection following a procedure, superficial incisional surgical site, initial encounter Status: Acute Assessment and Plan: Continues to improve with local wound care. No purulent drainage noted on exam today. Will continue with wet to dry packing and dressing changes daily for the midline abdominal incision. Okay from a surgical standpoint for the patient to discharge when okay with other services. Follow-up with Dr. Anaya in the wound clinic in two weeks. (2) Ileostomy, has currently: Code(s): Z93.2 - Ileostomy status Status: Acute Assessment and Plan: Skin around ileostomy seems to be improving with current treatment. Continue local wound care with tolnaftate powder and keeping this area as dry as possible. Ostomy bag staying intact with improving skin integrity. (3) Abdominal wall cellulitis: Code(s): L03.311 - Cellulitis of abdominal wall Status: Acute Additional Plan Discussed plan of care with Dr. Anaya. Subjective Subjective Date/Time Seen: 12/31/19 08:41 Patient reports: no new complaints and tolerating a regular diet Interval history: Patient sitting up eating breakfast upon arrival. No specific complaints this morning. Denies any abdominal pain. No acute events overnight. Per the nurse, the ileostomy bag has stayed in place yesterday and today. Review of Systems Review of Systems: All systems reviewed & are unremarkable except as noted in HPI and below Exam Const: General: comfortable, no acute distress, alert and awake Nutritional Appearance: average body habitus Orientation/consciousness: patient oriented x3 Skin: Other: RLQ ileostomy with liquid stool output, working well, surrounding skin maceration and erythema improving with no weeping noted around bag today. Midline abdominal wound dressing changed. Wound bed appears pink with granulation tissue forming and a small opening at the inferior aspect of the wound that tunnels at 6 and 9 o'clock. Both areas of tunneling have decreased in length. No purulent or feculent drainage noted today. Surrounding skin appears healthy. Neuro: General: no focal motor deficits Psych: Mental Status: mental status grossly normal Affect: normal affect Attitude: cooperative Insight: Good insight present (Psych) Judgement: Good judgement present (Psych) Objective Data Vital Signs Vital Signs: Vital Signs - 24 hr 12/30/19 10:00 12/30/19 14:00 12/30/19 18:00 Temperature 37.1 C 36.8 C 36.9 C Pulse Rate 88 84 87 Respiratory Rate 16 16 18 Blood Pressure 145/73 H 137/71 131/78 Pulse Oximetry 100 95 96 12/30/19 22:00 12/31/19 02:00 12/31/19 06:00 Temperature 36.5 C 36.5 C 36.6 C Pulse Rate 94 90 90 Respiratory Rate 16 18 16 Blood Pressure 143/64 H 137/64 154/71 H Pulse Oximetry 100 100 100 Intake/Output Intake/Output: Intake & Output 12/28/19 12/29/19 12/30/19 12/31/19 23:59 23:59 23:59 23:59 Intake Total 3590 3590 2290 1760 Output Total 1250 2250 2700 1250 Balance 2340 1340 -410 510 Meds/Results Medications: Active Medications Generic Name Dose Route Start Last Admin Trade Name Freq PRN Reason Stop Dose Admin Acetaminophen 650 mg 12/28/19 15:02 12/29/19 19:45 Tylenol Tablet PO 650 mg Q6H PRN Administration Pain Rated 5 or Less Buspirone HCl 5 mg 12/27/19 21:00 12/31/19 09:08 Buspar PO 5 mg Q12HR GLADIS Administration Diltiazem HCl 360 mg 12/28/19 09:00 12/31/19 09:07 Cardizem Cd PO 01/27/20 09:01 360 mg DAILY GLADIS Administration Metronidazole 500 mg in 100 mls @ 100 mls/hr 12/27/19 21:00 12/31/19 09:12 Flagyl 500 Mg/Iso Soln 100 Ml IVPB 100 mls/hr Q6H GLADIS Administration Piperacillin/Tazobactam/Dextrose 3.375 gm in 50 mls @ 100 mls/hr 12/28/19 18:00 12/31/19 06:29 Zosyn 3.375 Gm/D5w 50ml Pm IVPB Infused Q6HR GLADIS Infusion Lac
[2019-12-31 10:00] VITALS: BP 131/68; PULSE 87; RESP 18; TEMP 36.8; O2SAT 98
[2019-12-31] MEDS: AMPICILLIN 1 GM/NS 50 ML 1 GM/50 ML BAG IVPB (13:08)
[2019-12-31 14:00] VITALS: BP 144/79; PULSE 107; RESP 16; TEMP 36.7; O2SAT 100
[2019-12-31] MEDS: ONDANSETRON HCL ODT 4 MG TABLET PO (16:01)
--- NOTE | 2019-12-31 16:09 | PM.IMPN ---
Progress Note: A&P Assessment and Plan (1) Superficial incisional surgical site infection: Code(s): T81.41XA - Infection following a procedure, superficial incisional surgical site, initial encounter Status: Acute Assessment and Plan: Infection at surgical incision site. Wound care has been consulted and are treating with dressing changes. -- Daily lightly pack 1 inch iodoform gauze ribbon to open area in the medial abdomen incision area. making sure to pack at [address] saline moistened gauze over entire wound bed and cover with a ABD pad. Anaerobic WCx showing light growth of Enterococcus species which is sensitive to Ampicillin. Talked with Surgery and they do not feel that antibiotics are necessary at this time. Blood Cx negative to date x2 Consider discharge tomorrow after wound care is set up and follow up scheduled. See what surgery thinks tomorrow. Monitor (2) Abdominal wall cellulitis: Code(s): L03.311 - Cellulitis of abdominal wall Status: Acute Assessment and Plan: The patient was started on Flagyl and Zosyn from ER; this was continued but cultures came back positive for light growth of enterococcus that is sensitive to Ampicillin. She was given a dose of Ampicillin today. General Surgery following and they do not believe the patient needs antibiotics at this time. Normal WBC at 5.5. Monitor CBC WC consulted for further care (3) Hypertension: Code(s): I10 - Essential (primary) hypertension Status: Chronic Assessment and Plan: BP 150-130s sys Continue home antihypertensives (4) Depression: Code(s): F32.9 - Major depressive disorder, single episode, unspecified Status: Chronic Assessment and Plan: No acute issues Continue BuSpar (5) Atrial fibrillation: Code(s): I48.91 - Unspecified atrial fibrillation Status: Chronic Assessment and Plan: Rate controlled; No CP/palpitations Continue Xarelto continue Diltiazem (6) DVT (deep venous thrombosis): Code(s): I82.409 - Acute embolism and thrombosis of unspecified deep veins of unspecified lower extremity Status: Chronic Assessment and Plan: Continue Xarelto. Time Spent With Patient Time with patient: 25 - 35 minutes Subjective Date/time seen: 12/31/19 16:09 Interval history: Patient is a 74 yo F with history of CKDIII, a. fib (on a/c, rate controlled), HTN, and recent severe diverticulitis with colon perforation and peritonitis s/p exploratory laparotomy, total colectomy, and ileostomy roughly 3 weeks ago at [facility] in [place] who is here for evaluation and management of superficial incisional surgical site infection. Date of service 12/31/2019: She reports feeling well today. She denies having any pain around her ostomy site but her ostomy has not been changed in 2 days. She has been eating and drinking without any issues. She denies any fevers, chills, abdominal pain, nausea, vomiting, chest pain, shortness of breath, cough, leg swelling, calf pain or any other symptoms at this time. Review of Systems Review of Systems: All systems reviewed & are unremarkable except as noted in HPI and below Exam Narrative: Exam Narrative: General: 74-year-old woman sitting up in the chair eating lunch. Appears comfortable. In no acute distress. Skin: No jaundice or cyanosis. Good skin turgor. Neck: Full range of motion. Supple. Respiratory: Lungs are clear to auscultation bilaterally. No bony chest wall tenderness. Cardiovascular: The heart has a regular rate and rhythm without murmur. Lower extremities: No lower extremity edema. Distal pulses are easily palpated. No calf tenderness to palpat
[2019-12-31] MEDS: PROMETHAZINE HCL 25 MG/ML AMPUL 12.5 MG IV PUSH (18:03)
[2019-12-31] MEDS: RIVAROXABAN 20 MG TABLET PO (18:03)
[2019-12-31 22:00] VITALS: BP 150/77; PULSE 109; RESP 16; TEMP 36.5; O2SAT 100
[2020-01-01] VITALS: BP 147/82; PULSE 102; RESP 16; TEMP 36.6; O2SAT 100
[2020-01-01 05:27] LABS: Hematocrit 32.8 % (37.0-47.0); Hemoglobin 10.2 g/dL (12.0-15.0); Mean Corpuscular HGB Conc 31.1 g/dl (32-36); Mean Corpuscular Volume 90.1 fl (80-100); Mean Platelet Volume 10.1 fl (7.4-10.4); Platelet Count Result 277 k/mm3 (150-375); Red Blood Count 3.64 M/mm3 (4.2-5.4); Red Cell Distribution Width 13.3 % (11.5-14.5); White Blood Count 7.6 K/mm3 (4.5-10.0)
[2020-01-01 05:40] LABS: Blood Urea Nitrogen 8 mg/dL (7-17); Calcium 8.1 mg/dL (8.4-10.2); Carbon Dioxide 23 mmol/L (22-30); Chloride 105 mmol/L (98-107); Estimated CRCL calculation 47 ml/min; Estimated Glomerular Filt Rate > 60; Glucose 79 mg/dL (65-105); Magnesium 1.6 mg/dL (1.6-2.3); Potassium 3.7 mmol/L (3.4-5.0); Sodium 135 mmol/L (137-145)
[2020-01-01 06:35] VITALS: BP 144/82; PULSE 110; RESP 16; TEMP 37; O2SAT 100
[2020-01-01] MEDS: ONDANSETRON HCL ODT 4 MG TABLET PO (09:46)
[2020-01-01 09:56] VITALS: BP 129/77; PULSE 124; RESP 18; TEMP 36.8; O2SAT 100
[2020-01-01] MEDS: ACIDOPHILUS/BULGARICUS CHEWABLE TABLET 1 TABLET PO ×2 (10:37→21:07)
[2020-01-01] MEDS: SACCHAROMYCES BOULARDII 250 MG CAPSULE PO ×2 (10:37→18:12)
[2020-01-01] MEDS: AMOXICILLIN 500 MG CAPSULE PO ×3 (10:37→21:07)
[2020-01-01] MEDS: MINOCYCLINE HCL 50 MG CAPSULE 100 MG PO (10:37)
[2020-01-01] MEDS: busPIRone HCL 5 MG TABLET PO ×2 (10:38→21:07)
--- NOTE | 2020-01-01 10:42 | PCNFU ---
Nutrition Follow-Up Complete: Increased protein/calorie needs related to wound infection as evidenced by EMR. Goal: Patient to consume 75% of meals or greater. Progressing towards goal. We will continue current goal. Pt current nutrition is Regular. Nutrition recommendation:Agree Last recorded weight is 61.5 kg. Bowel Motility:+BM reported 12/30 Labs Reviewed:Na 135,Hct 32.8,Hgb 10.2 Meds Noted: Deejay Additional Notes: Spoke with patient over telephone today due to COVID 19 precautions. Patient states to some nausea today. Oral intake has been fair. She is not drinking the Ensure Compact but is willing to try the [employer] Ice Cream BID which will providing 270 kcals and 9 gms protein. PO intake encouraged, agree with diet orders. Monitoring: follow up in 5 days.
[2020-01-01] MEDS: MAGNESIUM SULF 2 GM/WATER 50ML 2 GM/50 ML BAG IVPB (10:45)
--- NOTE | 2020-01-01 13:07 | ECG_ITS ---
Measurements Intervals [place] Rate: 109 P: 72 SD: 181 QRS: 24 QRSD: 94 T: 88 QT: 342 QTc: 462 Interpretive Statements SINUS TACHYCARDIA BORDERLINE AV CONDUCTION DELAY CONSIDER INFERIOR INFARCT, AGE INDETERMINATE BORDERLINE T WAVE ABNORMALITY- HIGH LATERA LEADS ABNORMAL ECG Electronically Signed On 01-01-2020 14:05:17 CDT by Kamari Adair D.O.
--- NOTE | 2020-01-01 13:21 | PM.IMPN ---
Progress Note: A&P Assessment and Plan (1) Discharge planning issues: Code(s): Z02.9 - Encounter for administrative examinations, unspecified Status: Acute Assessment and Plan: Patient was can be discharged today back to her [facility] facility but she requires a COVID test prior to being excepted. Pending COVID test at this time. (2) Tachycardia: Code(s): R00.0 - Tachycardia, unspecified Status: Acute Assessment and Plan: Patient was found to be tachycardic on examination. An EKG was completed which showed sinus tachycardia with heart rate of 109, she has no acute changes when compared to the EKG on arrival on 12/27/2019 at 10:25 a.m.. Patient has been afebrile, normal oxygenation, normal respiratory rate, stable blood pressure and normal leukocytosis. She has no acute signs of infection but her antibiotics had just been discontinued yesterday. She is not having any more pain or symptoms at this time. Will recheck her vitals, CBC, and lactic acid in the morning for further evaluation of tachycardia. She does have a history of atrial fibrillation and is on Xarelto so it is a low chance that she has a PE or DVT at this time. Will continue monitoring the patient's symptoms. (3) Superficial incisional surgical site infection: Code(s): T81.41XA - Infection following a procedure, superficial incisional surgical site, initial encounter Status: Acute Assessment and Plan: Infection at surgical incision site. Wound care has been consulted and are treating with dressing changes. -- Daily lightly pack 1 inch iodoform gauze ribbon to open area in the medial abdomen incision area. making sure to pack at [address] saline moistened gauze over entire wound bed and cover with a ABD pad. Anaerobic WCx showing light growth of Enterococcus species which is sensitive to Ampicillin. Talked with Surgery and they do not feel that antibiotics are necessary at this time. Today the patient's white count went slightly to 7.6 which is still within normal range and she has been more tachycardic today. I reviewed with my attending provider who recommends continuing oral amoxicillin 500 t.i.d. for another few days. Blood Cx negative to date x2 Surgery feels comfortable with the patient being discharged today to continue with dressing changes and to follow-up with wound care as an outpatient. (4) Abdominal wall cellulitis: Code(s): L03.311 - Cellulitis of abdominal wall Status: Acute Assessment and Plan: The patient was started on Flagyl and Zosyn from ER; this was continued but cultures came back positive for light growth of enterococcus that is sensitive to Ampicillin. She was given a dose of Ampicillin today. General Surgery following and they do not believe the patient needs antibiotics at this time. Normal WBC at 7.6 K. Monitor CBC Wound care consulted for further care (5) Hypertension: Code(s): I10 - Essential (primary) hypertension Status: Chronic Assessment and Plan: BP 140-120s sys Continue home antihypertensives (6) Depression: Code(s): F32.9 - Major depressive disorder, single episode, unspecified Status: Chronic Assessment and Plan: No acute issues Continue BuSpar (7) Atrial fibrillation: Code(s): I48.91 - Unspecified atrial fibrillation Status: Chronic Assessment and Plan: In normal sinus rhythm at this time. Patient does have a tachycardic rate today. No CP/palpitations Continue Xarelto continue Diltiazem (8) DVT (deep venous thrombosis): Code(s): I82.409 - Acute embolism and thrombosis of unspecifi
[2020-01-01 17:40] VITALS: BP 135/75; PULSE 106; RESP 18; TEMP 36.8; O2SAT 100
[2020-01-01] MEDS: RIVAROXABAN 20 MG TABLET PO (18:12)
[2020-01-01] MEDS: ACETAMINOPHEN 325 MG TABLET 650 MG PO (18:15)
[2020-01-01 22:00] VITALS: BP 133/74; PULSE 103; RESP 18; TEMP 36.2; O2SAT 100
[2020-01-02 02:00] VITALS: BP 135/73; PULSE 100; RESP 18; TEMP 36; O2SAT 100
[2020-01-02 02:20] VITALS: TEMP 37
[2020-01-02] MEDS: AMOXICILLIN 500 MG CAPSULE PO ×2 (05:07→14:54)
[2020-01-02 06:00] VITALS: BP 136/69; PULSE 95; RESP 18; TEMP 36.5; O2SAT 100
[2020-01-02 06:06] LABS: Hematocrit 34.1 % (37.0-47.0); Hemoglobin 10.8 g/dL (12.0-15.0); Mean Corpuscular HGB Conc 31.7 g/dl (32-36); Mean Corpuscular Hemoglobin 28.2 pg (26-34); Mean Platelet Volume 10.5 fl (7.4-10.4); Platelet Count Result 326 k/mm3 (150-375); Red Blood Count 3.83 M/mm3 (4.2-5.4); Red Cell Distribution Width 13.9 % (11.5-14.5); White Blood Count 7.7 K/mm3 (4.5-10.0)
[2020-01-02 06:24] LABS: Lactic Acid 0.9 mmol/L (0.7-2.1)
[2020-01-02 06:32] LABS: Blood Urea Nitrogen 15 mg/dL (7-17); Calcium 8.2 mg/dL (8.4-10.2); Carbon Dioxide 25 mmol/L (22-30); Chloride 104 mmol/L (98-107); Estimated CRCL calculation 42 ml/min; Estimated Glomerular Filt Rate > 60; Glucose 95 mg/dL (65-105); Magnesium 2.1 mg/dL (1.6-2.3); Potassium 3.5 mmol/L (3.4-5.0); Sodium 135 mmol/L (137-145)
[2020-01-02] MEDS: MINOCYCLINE HCL 50 MG CAPSULE 100 MG PO (08:03)
[2020-01-02] MEDS: SACCHAROMYCES BOULARDII 250 MG CAPSULE PO (08:04)
[2020-01-02] MEDS: busPIRone HCL 5 MG TABLET PO (08:04)
[2020-01-02] MEDS: ACIDOPHILUS/BULGARICUS CHEWABLE TABLET 1 TABLET PO (08:04)
[2020-01-02 10:08] VITALS: BP 142/58; PULSE 106; RESP 20; TEMP 36.6; O2SAT 100
[2020-01-02 13:03] LABS: SARS-CoV-2 RNA PCR Negative
--- NOTE | 2020-01-02 13:22 | PM.DS ---
DS: Admitting Diagnosis Admitting Diagnosis Admitting Diagnosis: Cellulitis of abdominal wall DS: Discharge Diagnosis Discharge Diagnosis (1) Discharge planning issues: Code(s): Z02.9 - Encounter for administrative examinations, unspecified Status: Acute Assessment and Plan: Patient's COVID test was negative and she will be discharged to the [facility] rehab facility today. (2) Tachycardia: Code(s): R00.0 - Tachycardia, unspecified Status: Acute Assessment and Plan: Patient was found to be tachycardic on examination. An EKG was completed which showed sinus tachycardia with heart rate of 109, she has no acute changes when compared to the EKG on arrival on 12/27/2019 at 10:25 a.m.. Patient has been afebrile, normal oxygenation, normal respiratory rate, stable blood pressure and normal leukocytosis. She has no acute signs of infection but her antibiotics had just been discontinued yesterday. She is not having any more pain or symptoms at this time. Will continue her diltiazem for heart rate control and have her follow-up with her primary care provider for further adjustments if necessary. (3) Superficial incisional surgical site infection: Code(s): T81.41XA - Infection following a procedure, superficial incisional surgical site, initial encounter Status: Acute Assessment and Plan: Infection at surgical incision site. Wound care has been consulted and are treating with dressing changes. -- Daily lightly pack 1 inch iodoform gauze ribbon to open area in the medial abdomen incision area. making sure to pack at 6 [address] saline moistened gauze over entire wound bed and cover with a ABD pad. Anaerobic WCx showing light growth of Enterococcus species which is sensitive to Ampicillin. Talked with Surgery and they do not feel that antibiotics are necessary at this time. Today the patient's white count went slightly to 7.6 which is still within normal range and she has been more tachycardic today. I reviewed with my attending provider who recommends continuing oral amoxicillin 500 t.i.d. for another few days. Blood Cx negative to date x2 Surgery feels comfortable with the patient being discharged today to continue with dressing changes and to follow-up with wound care as an outpatient. (4) Abdominal wall cellulitis: Code(s): L03.311 - Cellulitis of abdominal wall Status: Acute Assessment and Plan: The patient was started on Flagyl and Zosyn from ER; this was continued but cultures came back positive for light growth of enterococcus that is sensitive to Ampicillin. Normal WBC at 7.7 K. Will continue oral amoxicillin for a few more days for continued treatment of Enterococcus. Wound care follow-up has been arranged. (5) Hypertension: Code(s): I10 - Essential (primary) hypertension Status: Chronic Assessment and Plan: BP 140-130s sys Continue home antihypertensives (6) Depression: Code(s): F32.9 - Major depressive disorder, single episode, unspecified Status: Chronic Assessment and Plan: No acute issues Continue BuSpar (7) Atrial fibrillation: Code(s): I48.91 - Unspecified atrial fibrillation Status: Chronic Assessment and Plan: In normal sinus rhythm at this time. Patient does have a tachycardic rate today. No CP/palpitations Continue Xarelto continue Diltiazem (8) DVT (deep venous thrombosis): Code(s): I82.409 - Acute embolism and thrombosis of unspecified deep veins of unspecified lower extremity Status: Chronic Assessment and Plan: Continue Neeta.
[2020-01-02 14:06] VITALS: BP 122/56; PULSE 105; RESP 16; TEMP 36.7; O2SAT 100
== END 2020-01-02 15:39 | DRG 863 ==
LOC: ANHED 13:53 → ANH3MEDSUR 14:23
PROVIDERS: Physician Assistant; Admitting Provider Hospitalist; Emergency Provider Emergency Medicine; PCP Family Medicine; Visit Provider Physician Assistant
DX: T81.41XA Infection following a procedure, superficial incisional surgical site, initial encounter (principal); L03.311 Cellulitis of abdominal wall; E87.1 Hypo-osmolality and hyponatremia; B95.2 Enterococcus as the cause of diseases classified elsewhere; Z20.828 Contact with and (suspected) exposure to other viral communicable diseases; I82.562 Chronic embolism and thrombosis of left calf muscular vein; I12.9 Hypertensive chronic kidney disease with stage 1 through stage 4 chronic kidney disease, or unspecified chronic kidney disease; N18.3 Chronic kidney disease, stage 3 (moderate); I48.0 Paroxysmal atrial fibrillation; D64.9 Anemia, unspecified; R00.0 Tachycardia, unspecified; F32.9 Major depressive disorder, single episode, unspecified; Z93.2 Ileostomy status; Z85.118 Personal history of other malignant neoplasm of bronchus and lung; Z87.891 Personal history of nicotine dependence; Z90.49 Acquired absence of other specified parts of digestive tract
CPT/HCPCS: 36415; 51701; 71045; 74177; 80048; 80053; 81001; 83605; 83735; 85025; 85027; 85610; 85730; 86850; 86900; 86901; 87040; 87070; 87075; 87077; 87086; 87186; 87205; 87635; 93005; 96361; 96365; 96366; 96367; 96375; 97110; 97116; 97161; 97165; 97535; 99285; A9270; C9803; G0378; J0290; J2270; J2543; J2550; J3475; J7030; Q9967; U0003

== ENCOUNTER 2020-01-31 13:54 | Outpatient (CLI) | payer OTHER, SELFPAY ==
[2020-01-31 16:02] LABS: Hematocrit 32.7 % (37.0-47.0); Hemoglobin 10.4 g/dL (12.0-15.0); Mean Corpuscular HGB Conc 31.8 g/dl (32-36); Mean Corpuscular Hemoglobin 28.2 pg (26-34); Mean Corpuscular Volume 88.6 fl (80-100); Mean Platelet Volume 12.3 fl (7.4-10.4); Platelet Count Result 210 k/mm3 (150-375); Red Blood Count 3.69 M/mm3 (4.2-5.4); Red Cell Distribution Width 15.5 % (11.5-14.5); White Blood Count 10.4 K/mm3 (4.5-10.0)
== END 2020-01-31 13:55 | disposition home or self-care (01) ==
DX: D64.9 Anemia, unspecified (principal)
CPT/HCPCS: 36415; 85027

== ENCOUNTER 2020-02-17 10:20 | Outpatient (CLI) | payer OTHER, SELFPAY ==
[2020-02-17 11:06] LABS: Basophils Absolute Auto 0.1 K/mm3 (0.0-0.1); Basophils Percent Auto 0.7 % (0.2-1.2); Eosinophils Absolute Auto 0.3 K/mm3 (0-0.3); Eosinophils Percent Auto 2.1 % (0-4.4); Hematocrit 36.7 % (37.0-47.0); Hemoglobin 11.4 g/dL (12.0-15.0); Immature Granulocyte Absolute 0.05 K/mm3 (0.00-0.031); Immature Granulocyte Percent A 0.4 % (0-0.5); Lymphocytes Absolute Auto 3.68 K/mm3 (0.9-3.2); Lymphocytes Percent Auto 28.9 % (18.3-44.2); Mean Corpuscular HGB Conc 31.1 g/dl (32-36); Mean Corpuscular Hemoglobin 28.3 pg (26-34); Mean Corpuscular Volume 91.1 fl (80-100); Mean Platelet Volume 11.5 fl (7.4-10.4); Monocytes Percent Auto 7.6 % (2.6-8.5); Neutrophils Absolute Auto 7.7 K/mm3 (1.3-6.7); Neutrophils Percent Auto 60.3 % (45.5-73.1); Platelet Count Result 490 k/mm3 (150-375); Red Blood Count 4.03 M/mm3 (4.2-5.4); Red Cell Distribution Width 16.3 % (11.5-14.5); White Blood Count 12.7 K/mm3 (4.5-10.0)
[2020-02-17 11:18] LABS: Alanine Aminotransferase 45 U/L (4-35); Albumin Level 3.9 g/dL (3.5-5.1); Alkaline Phosphatase 125 U/L (38-126); Aspartate Amino Transferase 27 U/L (14-36); Bilirubin,Total 0.2 mg/dL (0.2-1.3); Blood Urea Nitrogen 95 mg/dL (7-17); Calcium 9.3 mg/dL (8.4-10.2); Carbon Dioxide 11 mmol/L (22-30); Chloride 114 mmol/L (98-107); Estimated Glomerular Filt Rate 16; Glucose 120 mg/dL (65-105); Potassium 5.3 mmol/L (3.4-5.0); Sodium 139 mmol/L (137-145)
== END 2020-02-17 10:21 | disposition home or self-care (01) ==
LOC: ANHLAB 10:22
PROVIDERS: Visit Provider Physician Assistant
DX: D64.9 Anemia, unspecified (principal); E87.1 Hypo-osmolality and hyponatremia; N39.0 Urinary tract infection, site not specified; R79.89 Other specified abnormal findings of blood chemistry
CPT/HCPCS: 36415; 80053; 84443; 85025

== ENCOUNTER 2020-02-17 14:29 | Inpatient (IN) | payer OTHER, SELFPAY ==
[2020-02-17] VITALS (13 sets, daily range): BP systolic 66–120; BP diastolic 32–76; PULSE 96–111; RESP 16–20; TEMP 36.4–36.7; O2SAT 98–100; BMI 22.2
--- NOTE | ~2020-02-17 | XR_ITS ---
XR chest 1V portable DATE: 02/17/2020 15:55 INDICATION: Weakness. Hypoglycemia. Hypertension. TECHNIQUE: Audible AP view on 02/17/2020 at 1556 hours COMPARISON: 12/27/2019 portable AP chest at 1103 hours FINDINGS: There is postoperative change from partial left pneumonectomy, stable in appearance since . No pulmonary infiltrate or consolidation, pleural effusion or pulmonary vascular congestion or pneumo thorax. Heart size appears within upper limits of normal size. There is aortic calcification. No hilar or med iastinal mass lesion is evident. Diffuse osteopenia. Degenerative spurring of the thoracic spine. Surgical clips, right upper quadrant, consistent with cholecystectomy. IMPRESSION: Status post left partial pneumonectomy; no active disease or significant change since 12/06 Reviewed, dictated and finalized at location A. IMPRESSION: Status post left partial pneumonectomy; no active disease or signif icant change since 12/27/2019
--- NOTE | 2020-02-17 15:27 | ECG_ITS ---
Measurements Intervals Bock Rate: 109 P: 101 HI: 149 QRS: 30 QRSD: 88 T: 52 QT: 319 QTc: 430 Interpretive Statements SINUS TACHYCARDIA POSSIBLE LEFT ATRIAL ENLARGEMENT LOW QRS VOLTAGE IN PRECORDIAL LEADS CONSIDER INFERIOR INFARCT, AGE INDETERMINATE BORDERLINE T WAVE ABNORMALITY- ANTERIOR LEADS ABNORMAL ECG Electronically Signed On 02-17-2020 15:37:32 CDT by Kamari Adair D.O.
[2020-02-17] MEDS: SODIUM CHLORIDE 0.9% IV 1,000 ML 999 ML (15:30)
--- NOTE | 2020-02-17 15:42 | ED.GENADULT ---
HPI - General Adult General Chief complaint: Unspecified Stated complaint: sent by PMD Time Seen by Provider: 02/17/20 15:32 History of Present Illness HPI narrative: Patient is a 74 y/o female sent to ED from PCP for abnormal labs. She states that she had labs drawn earlier today and was told by her doctor's office that her kidney function is abnormal and she needs to be evaluated in ED. She denies any fever or pain. She has been feeling weak for about 1 week. She states that her weakness is severe and there is no alleviating or exacerbating factor. She has difficulty with ambulation due to weakness. Related Data Home Medications Medication Instructions Recorded Confirmed lisinopril 02/17/20 metoprolol succinate PO 02/17/20 pantoprazole PO 02/17/20 rivaroxaban [Xarelto] mg 02/17/20 tramadol mg 02/17/20 Allergies Allergy/AdvReac Type Severity Reaction Status Date / Time BENCONATATE AdvReac Severe COUGH Uncoded 12/27/19 09:46 Review of Systems Constitutional: Constitutional: Denies chills, Denies fever(s), Denies headache(s) and Reports weakness Eyes: Eyes: Denies blurry vision ENT: Denies headache(s) and Denies neck pain Cardiovascular: Cardiovascular: Denies chest pain and Denies dyspnea Respiratory: Respiratory: Denies cough and Denies dyspnea Gastrointestinal: Gastrointestinal: Denies abdominal pain, Denies diarrhea, Denies nausea and Denies vomiting Genitourinary: Genitourinary: Denies hematuria and Denies dysuria Musculoskeletal: Musculoskeletal: Denies back pain and Denies neck pain Neurologic: Denies headache(s) and Denies weakness [facility] Past Medical History Medical History Atrial fibrillation Paroxysmal Chronic kidney disease, stage 3 (moderate) Colostomy in place Depression Diverticulitis With perforation status post exploratory laparotomy DVT (deep venous thrombosis) H/O: lung cancer She had left upper lobectomy but no chemo or radiation. Hypertension Hypertensive kidney disease with CKD stage III Hypokalemia Pure hyperglyceridemia Surgical History Surgical History H/O exploratory laparotomy Due to severe diverticulitis of the colon with perforation H/O total colectomy History of tubal ligation Hx of cholecystectomy S/P lobectomy of lung Family History Family History Mother Hypertension Family history of malignant neoplasm Family history of malignant neoplasm of ovary, Onset Age: 93 Sibling Hypertension Family history of liver disease Father Family history of lung cancer, Onset Age: 72 Other Family history of colonic diverticulitis Family history of coronary artery disease Social History Social History Social History: The patient is currently in rehab at [facility]. She has 2 sons. She is . She desires to be a full code. She states that she does not have a durable power attorney general for healthcare. She is to smoke many years ago and quit 1998. She smoked a pack a cigarettes a day. Smoking packs per day: 1 Smoking cigarettes per day: 20.0 Years smoked: 50 Smoking pack-years: 50.00 Smoking status: Former smoker Tobacco type: cigarettes Second hand tobacco smoke exposure: Yes Smoking end date: 08/07/98 Alcohol intake: never Substance use: never Substance use type: does not use Gender identity (if verbalized by the patient): Female Spiritual care concerns: No Exam Const: General: no acute distress, well developed and ill appearing Nutritional Appearance: thin Orientation/consciousness: oriented to person, oriented to place, oriented to time and patient oriented x3 HENMT: Head: normocephalic Ears: external ears normal General nose exam: Normal external nose present E
[2020-02-17 16:08] LABS: Basophils Absolute Auto 0.1 K/mm3 (0.0-0.1); Basophils Percent Auto 0.7 % (0.2-1.2); Eosinophils Absolute Auto 0.2 K/mm3 (0-0.3); Eosinophils Percent Auto 1.7 % (0-4.4); Hematocrit 39.8 % (37.0-47.0); Hemoglobin 12.2 g/dL (12.0-15.0); Immature Granulocyte Absolute 0.09 K/mm3 (0.00-0.031); Immature Granulocyte Percent A 0.7 % (0-0.5); Lymphocytes Absolute Auto 3.83 K/mm3 (0.9-3.2); Lymphocytes Percent Auto 29.9 % (18.3-44.2); Mean Corpuscular HGB Conc 30.7 g/dl (32-36); Mean Corpuscular Hemoglobin 28.2 pg (26-34); Mean Corpuscular Volume 92.1 fl (80-100); Monocytes Absolute Auto 1.1 K/mm3 (0.1-0.6); Monocytes Percent Auto 8.4 % (2.6-8.5); Neutrophils Absolute Auto 7.5 K/mm3 (1.3-6.7); Neutrophils Percent Auto 58.6 % (45.5-73.1); Platelet Count Result 518 k/mm3 (150-375); Red Blood Count 4.32 M/mm3 (4.2-5.4); Red Cell Distribution Width 16.2 % (11.5-14.5); White Blood Count 12.8 K/mm3 (4.5-10.0)
[2020-02-17 16:17] LABS: Lactic Acid Reflex 1.6 mmol/L (0.7-2.1)
[2020-02-17 17:07] LABS: Alanine Aminotransferase 33 U/L (4-35); Alkaline Phosphatase 97 U/L (38-126); Aspartate Amino Transferase 25 U/L (14-36); Bilirubin,Total 0.1 mg/dL (0.2-1.3); Blood Urea Nitrogen 93 mg/dL (7-17); Calcium 8.2 mg/dL (8.4-10.2); Carbon Dioxide 12 mmol/L (22-30); Chloride 115 mmol/L (98-107); Estimated CRCL calculation 13 ml/min; Estimated Glomerular Filt Rate 16; Glucose 93 mg/dL (65-105); Potassium 5.2 mmol/L (3.4-5.0); Sodium 136 mmol/L (137-145)
[2020-02-17 17:19] LABS: Troponin I < 0.012 ng/mL (0.000-0.034)
[2020-02-17 17:31] LABS: Add Urine Microscopic? YES; Appearance Urine Clear (Clear); Bacteria Urine 1+ /hpf; Bilirubin Urine Negative (Negative); Blood Urine 1+ (Negative); Color Urine Yellow (Yellow); Glucose Urine UA Negative (Negative); Hyaline Casts Urine 15-19 /lpf; Ketones Urine Negative (Negative); Leukocyte Esterase Ur 2+ LEU/UL (Negative); Mucus Urine Rare /lpf; Nitrate Urine Negative (Negative); Protein Urine Negative (Negative); Specific Grav Ur 1.015 (1.001-1.035); Squamous Epithelial Cell Urine Rare /hpf (Few); Urobilinogen Urine Negative mg/dL (<2.0); WBC Urine 16-20 /hpf
[2020-02-17 17:42] LABS: INR 2.6
[2020-02-17 17:43] LABS: Partial Thromboplastin Time 35.6 SECONDS (22.3-36.8)
[2020-02-17] MEDS: LACTATED RINGERS 1,000 ML 125 ML IV CONT (19:48)
[2020-02-17 20:24] LABS: Troponin I < 0.012 ng/mL (0.000-0.034)
--- NOTE | 2020-02-17 21:36 | PM.IMHP ---
H&P: HPI History of Present Illness Chief complaint: Needs IV fluids Narrative: Date and time of patient contact: 02/17/2020 at 10:00 p.m. Tiffany Dempsey is a 74 year old female with a past medical history of chronic kidney disease and ileostomy who presented from home after outpatient labs demonstrated abnormal kidney function requiring IV fluids. The patient was evaluated at her primary care physician's office on 02/14/2020 for follow-up from recent hospitalization at [facility]. While at her primary care physician's office her lisinopril was discontinued. She was noted to have some tachycardia office a heart rate of 116 and a blood pressure of 76/52. Was can't given a prescription for metoprolol ER 25 mg to treat the tachycardia. The patient denies any increased stool output from her ostomy. She does admit that she does not drink much water. Her appetite has been fair. She reports her ostomy output has for the most part been green to brown in color which is unchanged. She has had increased urinary frequency and urgency with decreased amounts of urine output for the last 3 days. She denies any dysuria or hematuria. She denies any chest pain or shortness of breath. She has noticed that it has been harder to focus her vision and she has been having some episodes of lightheadedness. Her lightheadedness and increased weakness has been ongoing for the last 3 or 4 days. She denies any increased pain from her baseline. She ambulates with a walker. The patient recently was hospitalized at [facility] 01/28/2020 due to UTI, anemia, acute on chronic kidney injury nausea and vomiting, hyponatremia and guaiac-positive stools. She had a negative C diff. He EGD demonstrated reflux esophagitis and duodenitis without evidence of acute bleed. She was treated for a UTI. She had a CT scan that demonstrated L2-L3 neural foraminal stenosis and a 3 cm distal abdominal aortic aneurysm Review of Systems Review of Systems: Narrative: 12 systems were reviewed with pertinent positives and negatives per HPI. Except as documented in the HPI, all other systems were reviewed and are negative. 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 Hypertension Hypertensive kidney disease with CKD stage III Hypokalemia Lumbar foraminal stenosis L2-L3 neural foraminal stenosis on CT scan January 2020 Pure hyperglyceridemia Surgical History Surgical History (Updated 02/17/20 @ 22:53 by Ana Rosa Mcmullen DO) H/O exploratory laparotomy Due to severe diverticulitis of the colon with perforation H/O total colectomy Subtotal colectomy december 2019 in [facility] due to sigmoid stricture and perforated cecum History of colonoscopy Performed by Dr. Sprague 10/09/2019 demonstrated diverticulitis without perforation or abscess, colonic spasm History of esophagogastroduodenoscopy (EGD) January 2020 demonstrating gastritis and duodenitis History of tubal ligation Hx of cholecystectomy October 2017 S/P lobectomy of lung Left upper lobe due to lung cancer Status post cataract extraction of both eyes with insertion of intraocular lens Family History Family History (Updated 02/17/20 @ 21:41 by Ana Rosa Mcmullen DO) Mother Hypertension Ovarian cancer Cerebrovascular accident Sibling Hypertension Diverticulitis Liver disease Father Lung cancer Social History Social History (Updated 02/17/20 @ 22:51
[2020-02-17 23:47] LABS: Troponin I 0.014 ng/mL (0.000-0.034)
[2020-02-18] VITALS: BP 121/57; PULSE 95; RESP 20; TEMP 36.6; O2SAT 100
[2020-02-18 02:00] VITALS: PULSE 97; RESP 18
[2020-02-18] MEDS: LACTATED RINGERS 1,000 ML 125 ML IV CONT ×3 (04:13→21:25)
[2020-02-18 04:16] LABS: Hematocrit 29.6 % (37.0-47.0); Hemoglobin 9.2 g/dL (12.0-15.0); Mean Corpuscular HGB Conc 31.1 g/dl (32-36); Mean Corpuscular Hemoglobin 28.1 pg (26-34); Mean Corpuscular Volume 90.5 fl (80-100); Mean Platelet Volume 11.2 fl (7.4-10.4); Platelet Count Result 268 k/mm3 (150-375); Red Blood Count 3.27 M/mm3 (4.2-5.4); Red Cell Distribution Width 15.9 % (11.5-14.5)
[2020-02-18 04:37] LABS: Blood Urea Nitrogen 75 mg/dL (7-17); Carbon Dioxide 18 mmol/L (22-30); Chloride 114 mmol/L (98-107); Estimated CRCL calculation 19 ml/min; Estimated Glomerular Filt Rate 26; Glucose 106 mg/dL (65-105); Potassium 4.6 mmol/L (3.4-5.0); Sodium 138 mmol/L (137-145)
[2020-02-18 08:00] VITALS: BP 131/68; PULSE 100; RESP 16; TEMP 36.6; O2SAT 100
[2020-02-18] MEDS: RIVAROXABAN 20 MG TABLET PO (08:59)
[2020-02-18] MEDS: PANTOPRAZOLE 40 MG TABLET PO (08:59)
[2020-02-18 13:14] VITALS: BMI 22.3
--- NOTE | 2020-02-18 13:55 | PC.NURSE ---
This patient, Tiffany Dempsey, was received from ICU on 02/18/20 at 1355. . Personal belongings list checked and signed. Patient/family oriented to unit policies and routines
[2020-02-18 14:00] VITALS: BP 117/58; PULSE 100; RESP 18; TEMP 36.6; O2SAT 100
--- NOTE | 2020-02-18 14:00 | PC.NURSE ---
This patient, Tiffany Dempsey, was transferred to [facility] on 02/18/20 at 1355. Personal belongings sent with patient. Report given to Beth BANG. Appropriate documentation sent with patient.
--- NOTE | 2020-02-18 18:00 | PM.IMPN ---
Progress Note: A&P Assessment and Plan (1) Hypotension: Qualifiers: Hypotension type: unspecified hypotension type Qualified Code(s): I95.9 - Hypotension, unspecified Code(s): I95.9 - Hypotension, unspecified Status: Acute Assessment and Plan: The patient was already hypotensive when she was evaluated her primary care physician's office on the . Her lisinopril was discontinued at that time but she was started on a new antihypertensive. patient's metoprolol stopped as her tachycardia is most likely due to her volume depletion with decreased oral intake and watery ostomy output. This is supported by her relative hemoconcentration and acute on chronic kidney injury. 30 mL/kilos bolus of fluid in the ER and her hypotension has resolved. Continue IV hydration 125 mL/hour. Given the resolution in the patient's hypotension the patient will be transferred to the medical floor with telemetry. (2) Acute kidney injury superimposed on chronic kidney disease: Code(s): N17.9 - Acute kidney failure, unspecified; N18.9 - Chronic kidney disease, unspecified Status: Acute Assessment and Plan: Due to pre renal hypotension/volume depletion and Nephro toxic medication use. Creatinine decreased to 1.9 today. Avoid nephrotoxic medications. (3) Hyperkalemia: Code(s): E87.5 - Hyperkalemia Status: Acute Assessment and Plan: Due to her acute on chronic renal failure. Her lisinopril was discontinued on the . K 4.6 today. (4) UTI (urinary tract infection): Qualifiers: Hematuria presence: without hematuria Urinary tract infection type: site unspecified Qualified Code(s): N39.0 - Urinary tract infection, site not specified Code(s): N39.0 - Urinary tract infection, site not specified Status: Acute Assessment and Plan: Given her symptoms of increased frequency and urgency she likely has a urinary tract infection. Continue empiric antibiotic therapy with Rocephin. Urine cultures and blood cultures are pending (5) Anemia: Code(s): D64.9 - Anemia, unspecified Status: Acute Assessment and Plan: Suspect all chronic disease. Hemoglobin has fallen with hydration as expected. Continue to monitor Subjective Date/time seen: 02/18/20 18:00 Interval history: Date of visit 02/17. 74-year-old hypertensive white female admitted with hypotension acute on chronic renal failure. She has had decreased oral intake with increased ostomy output to last few days. No fever no chills no cough. Fluid bolus corrected to hypotension and she is feeling better taking a normal diet. Exam Narrative: Exam Narrative: Blood pressure now 116/58 pulse is 100 regular afebrile Pupil equal reactive to light sclera anicteric Lungs clear CV regular rate rhythm no murmurs Abdomen is soft nontender good bowel sounds ostomy functioning Extremities without edema distal pulses are 2+ Neuro alert pleasant cooperative no focal deficits Objective Data Vital Signs Vital Signs: Vital Signs - 24 hr 02/17/20 18:45 02/17/20 18:55 02/17/20 20:00 Temperature 36.7 C Pulse Rate 101 H 102 H 100 Respiratory Rate 18 20 16 Blood Pressure 108/59 L 120/54 L 118/64 Pulse Oximetry 100 100 100 02/17/20 22:00 02/18/20 00:00 02/18/20 02:00 Temperature 36.6 C Pulse Rate 102 H 95 97 Respiratory Rate 20 20 18 Blood Pressure 120/76 121/57 L Pulse Oximetry 100 100 02/18/20 08:00 02/18/20 14:00 Temperature 36.6 C 36.6 C Pulse Rate 100 100 Respiratory Rate 16 18 Blood Pressure 131/68 117/58 L Pulse Oximetry 100 100 Intake/Output Intake/Output: Intake & Output 02/15/20 02/16/20 02/17/20 02/18/20 23:59 23:59 23:59 23:59 Intake Total 2650 2680 Output Total 825 2025 Balance 1825 655 Meds/Results Medications: Active Medications Generic Name Dose Route Start Last Admin Trade Name Freq PRN Reason Stop Dose Admin Lactated Rin
[2020-02-18 22:00] VITALS: BP 118/62; PULSE 109; RESP 18; TEMP 36.7; O2SAT 100
[2020-02-19] MEDS: LACTATED RINGERS 1,000 ML 125 ML IV CONT ×2 (05:26→15:01)
[2020-02-19 05:30] VITALS: BP 106/53; PULSE 106; RESP 18; TEMP 36.7; O2SAT 100
[2020-02-19 06:27] LABS: Basophils Percent Auto 0.5 % (0.2-1.2); Eosinophils Absolute Auto 0.4 K/mm3 (0-0.3); Eosinophils Percent Auto 4.9 % (0-4.4); Hematocrit 29.2 % (37.0-47.0); Hemoglobin 9.1 g/dL (12.0-15.0); Immature Granulocyte Absolute 0.03 K/mm3 (0.00-0.031); Immature Granulocyte Percent A 0.4 % (0-0.5); Lymphocytes Absolute Auto 1.94 K/mm3 (0.9-3.2); Lymphocytes Percent Auto 25.8 % (18.3-44.2); Mean Corpuscular HGB Conc 31.2 g/dl (32-36); Mean Corpuscular Hemoglobin 28.5 pg (26-34); Mean Corpuscular Volume 91.5 fl (80-100); Mean Platelet Volume 11.3 fl (7.4-10.4); Monocytes Absolute Auto 0.6 K/mm3 (0.1-0.6); Monocytes Percent Auto 8.2 % (2.6-8.5); Neutrophils Absolute Auto 4.5 K/mm3 (1.3-6.7); Neutrophils Percent Auto 60.2 % (45.5-73.1); Platelet Count Result 242 k/mm3 (150-375); Red Blood Count 3.19 M/mm3 (4.2-5.4); Red Cell Distribution Width 15.8 % (11.5-14.5); White Blood Count 7.5 K/mm3 (4.5-10.0)
[2020-02-19 07:06] LABS: Blood Urea Nitrogen 44 mg/dL (7-17); Calcium 8.1 mg/dL (8.4-10.2); Carbon Dioxide 18 mmol/L (22-30); Chloride 117 mmol/L (98-107); Estimated CRCL calculation 33 ml/min; Estimated Glomerular Filt Rate 54; Glucose 80 mg/dL (65-105); Potassium 4.8 mmol/L (3.4-5.0); Sodium 140 mmol/L (137-145)
[2020-02-19 07:15] LABS: Iron 55 ug/dL (37-170)
[2020-02-19 07:24] LABS: Percent Iron Saturation 28 % (20-50)
[2020-02-19] MEDS: PANTOPRAZOLE 40 MG TABLET PO (08:40)
[2020-02-19] MEDS: RIVAROXABAN 20 MG TABLET PO (08:41)
[2020-02-19 14:00] VITALS: BP 150/70; PULSE 105; RESP 18; TEMP 36.7; O2SAT 100
--- NOTE | 2020-02-19 16:08 | PM.IMPN ---
Progress Note: A&P Assessment and Plan (1) Hypotension: Qualifiers: Hypotension type: unspecified hypotension type Qualified Code(s): I95.9 - Hypotension, unspecified Code(s): I95.9 - Hypotension, unspecified Status: Acute Assessment and Plan: The patient was already hypotensive when she was evaluated her primary care physician's office on the . Her lisinopril was discontinued at that time but she was started on a new antihypertensive. patient's metoprolol stopped as her tachycardia is most likely due to her volume depletion with decreased oral intake and watery ostomy output. This is supported by her relative hemoconcentration and acute on chronic kidney injury. 30 mL/kilos bolus of fluid in the ER and her hypotension has resolved. Continue IV hydration but decrease to 75 mL/hour. . (2) Acute kidney injury superimposed on chronic kidney disease: Code(s): N17.9 - Acute kidney failure, unspecified; N18.9 - Chronic kidney disease, unspecified Status: Acute Assessment and Plan: Due to pre renal hypotension/volume depletion and Nephro toxic medication use. Creatinine decreased to 1.0 today. Avoid nephrotoxic medications. (3) Hyperkalemia: Code(s): E87.5 - Hyperkalemia Status: Acute Assessment and Plan: Due to her acute on chronic renal failure. Her lisinopril was discontinued on the . K 4.8 today. (4) UTI (urinary tract infection): Qualifiers: Hematuria presence: without hematuria Urinary tract infection type: site unspecified Qualified Code(s): N39.0 - Urinary tract infection, site not specified Code(s): N39.0 - Urinary tract infection, site not specified Status: Acute Assessment and Plan: Given her symptoms of increased frequency and urgency she likely had a urinary tract infection but growing yeast only. d/c ceftriaxone and start diflucan Urine cultures yeast and BC NG (5) Anemia: Code(s): D64.9 - Anemia, unspecified Status: Acute Assessment and Plan: Suspect all chronic disease. Hemoglobin has fallen with hydration as expected. Fe studies compatible with anemia of chronic disease Subjective Date/time seen: 02/19/20 16:08 Interval history: Date of visit 02/18. 74-year-old hypertensive white female admitted with hypotension acute on chronic renal failure. She has had decreased oral intake with increased ostomy output to last few days prior to admission. No fever no chills no cough. Fluid bolus corrected hypotension and she is feeling better taking a normal diet.but still loose ostomy output Exam Narrative: Exam Narrative: Blood pressure now 156/70 pulse is 100 regular afebrile Pupil equal reactive to light sclera anicteric Lungs clear CV regular rate rhythm no murmurs Abdomen is soft nontender good bowel sounds ostomy functioning Extremities without edema distal pulses are 2+ Neuro alert pleasant cooperative no focal deficits Objective Data Vital Signs Vital Signs: Vital Signs - 24 hr 02/18/20 22:00 02/19/20 05:30 02/19/20 14:00 Temperature 36.7 C 36.7 C 36.7 C Pulse Rate 109 H 106 H 105 H Respiratory Rate 18 18 18 Blood Pressure 118/62 106/53 L 150/70 H Pulse Oximetry 100 100 100 Intake/Output Intake/Output: Intake & Output 02/16/20 02/17/20 02/18/20 02/19/20 23:59 23:59 23:59 23:59 Intake Total 2650 3970 2620 Output Total 825 2025 1250 Balance 1825 1945 1370 Meds/Results Medications: Active Medications Generic Name Dose Route Start Last Admin Trade Name Freq PRN Reason Stop Dose Admin Lactated Ringer's 1,000 mls @ 75 mls/hr 02/17/20 17:40 02/19/20 15:01 Lr - Lactated Ringers Iv IV CONT 125 mls/hr .[id number] GLADIS Administration Ceftriaxone Sodium/Dextrose 1 gm in 50 mls @ 100 mls/hr 02/18/20 18:00 02/18/20 18:43 Rocephin 1 Gm/D5w 50 Ml IVPB Infused Q24H GLADIS Infusion Pantoprazole Sodium 40 mg 02/18/20 09:00
[2020-02-19] MEDS: FLUCONAZOLE 100 MG TABLET PO (17:58)
[2020-02-19 22:00] VITALS: BP 144/68; PULSE 102; RESP 18; TEMP 36.4; O2SAT 100
[2020-02-20] MEDS: LACTATED RINGERS 1,000 ML 75 ML IV CONT ×2 (04:04→18:00)
[2020-02-20 05:41] VITALS: BP 139/75; PULSE 100; RESP 16; TEMP 36.6; O2SAT 100
[2020-02-20 06:31] LABS: Basophils Percent Auto 0.6 % (0.2-1.2); Eosinophils Absolute Auto 0.3 K/mm3 (0-0.3); Eosinophils Percent Auto 5.1 % (0-4.4); Hematocrit 27.8 % (37.0-47.0); Hemoglobin 8.6 g/dL (12.0-15.0); Immature Granulocyte Absolute 0.03 K/mm3 (0.00-0.031); Immature Granulocyte Percent A 0.5 % (0-0.5); Lymphocytes Absolute Auto 1.85 K/mm3 (0.9-3.2); Lymphocytes Percent Auto 28.5 % (18.3-44.2); Mean Corpuscular HGB Conc 30.9 g/dl (32-36); Mean Corpuscular Hemoglobin 28.1 pg (26-34); Mean Corpuscular Volume 90.8 fl (80-100); Monocytes Absolute Auto 0.6 K/mm3 (0.1-0.6); Neutrophils Absolute Auto 3.7 K/mm3 (1.3-6.7); Neutrophils Percent Auto 56.3 % (45.5-73.1); Platelet Count Result 225 k/mm3 (150-375); Red Blood Count 3.06 M/mm3 (4.2-5.4); Red Cell Distribution Width 15.8 % (11.5-14.5); White Blood Count 6.5 K/mm3 (4.5-10.0)
[2020-02-20 06:49] LABS: Blood Urea Nitrogen 24 mg/dL (7-17); Carbon Dioxide 22 mmol/L (22-30); Chloride 114 mmol/L (98-107); Estimated CRCL calculation 35 ml/min; Estimated Glomerular Filt Rate > 60; Glucose 82 mg/dL (65-105); Potassium 4.2 mmol/L (3.4-5.0); Sodium 139 mmol/L (137-145)
[2020-02-20] MEDS: RIVAROXABAN 20 MG TABLET PO (10:15)
[2020-02-20] MEDS: FLUCONAZOLE 100 MG TABLET PO (10:15)
[2020-02-20] MEDS: PANTOPRAZOLE 40 MG TABLET PO (10:15)
[2020-02-20 12:21] VITALS: PULSE 100
[2020-02-20] MEDS: METOPROLOL SUCCINATE EXT REL 50 MG TABCR PO (12:21)
[2020-02-20 14:00] VITALS: BP 158/67; PULSE 98; RESP 18; TEMP 36.7; O2SAT 100
--- NOTE | 2020-02-20 15:24 | PM.IMPN ---
Progress Note: A&P Assessment and Plan (1) Hypotension: Qualifiers: Hypotension type: unspecified hypotension type Qualified Code(s): I95.9 - Hypotension, unspecified Code(s): I95.9 - Hypotension, unspecified Status: Acute Assessment and Plan: The patient was already hypotensive when she was evaluated her primary care physician's office on the . Her lisinopril was discontinued at that time but she was started on a new antihypertensive. patient's metoprolol stopped initially because it was felt the volume depletion was precipitating tachycardia. She has had history of tachycardia as well as atrial fibrillation and with her pressure rebounding will restart metoprolol succinate 50 daily 30 mL/kilos bolus of fluid in the ER and her hypotension has resolved. Continue IV hydration but decrease to 50 mL/hour. With creatinine normal and BUN down to 24 . (2) Acute kidney injury superimposed on chronic kidney disease: Code(s): N17.9 - Acute kidney failure, unspecified; N18.9 - Chronic kidney disease, unspecified Status: Acute Assessment and Plan: Due to pre renal hypotension/volume depletion and Nephro toxic medication use. Creatinine decreased to 0.9 today. Avoid nephrotoxic medications. (3) Hyperkalemia: Code(s): E87.5 - Hyperkalemia Status: Acute Assessment and Plan: Due to her acute on chronic renal failure. Her lisinopril was discontinued on the . K 4.2 today. (4) UTI (urinary tract infection): Qualifiers: Hematuria presence: without hematuria Urinary tract infection type: site unspecified Qualified Code(s): N39.0 - Urinary tract infection, site not specified Code(s): N39.0 - Urinary tract infection, site not specified Status: Acute Assessment and Plan: Given her symptoms of increased frequency and urgency she likely had a urinary tract infection but growing yeast only. d/c ceftriaxone and started diflucan 02/18 Urine cultures yeast and BC NG (5) Anemia: Code(s): D64.9 - Anemia, unspecified Status: Acute Assessment and Plan: Suspect all chronic disease. Hemoglobin has fallen with hydration as expected. Fe studies compatible with anemia of chronic disease Subjective Date/time seen: 02/20/20 15:24 Interval history: Date of visit 02/19. 74-year-old hypertensive white female admitted with hypotension acute on chronic renal failure. She has had decreased oral intake with increased ostomy output to last few days prior to admission. No fever no chills no cough. Fluid bolus corrected hypotension and she is feeling better taking a normal diet.but still loose ostomy output but stronger each day Exam Narrative: Exam Narrative: Blood pressure now 140/74 pulse is 100 regular afebrile Pupil equal reactive to light sclera anicteric Lungs clear CV regular rate rhythm no murmurs Abdomen is soft nontender good bowel sounds ostomy functioning Extremities without edema distal pulses are 2+ Neuro alert pleasant cooperative no focal deficits Objective Data Vital Signs Vital Signs: Vital Signs - 24 hr 02/19/20 22:00 02/20/20 05:41 02/20/20 12:21 Temperature 36.4 C L 36.6 C Pulse Rate 102 H 100 100 Respiratory Rate 18 16 Blood Pressure 144/68 H 139/75 Pulse Oximetry 100 100 Intake/Output Intake/Output: Intake & Output 02/17/20 02/18/20 02/19/20 02/20/20 23:59 23:59 23:59 23:59 Intake Total 2650 3970 4040 320 Output Total 825 2025 2150 500 Balance 1825 1945 1890 -180 Meds/Results Medications: Active Medications Generic Name Dose Route Start Last Admin Trade Name Freq PRN Reason Stop Dose Admin Fluconazole 100 mg 02/20/20 09:00 02/20/20 10:15 Diflucan Tablet PO 100 mg QAM GLADIS Administration Lactated Ringer's 1,000 mls @ 50 mls/hr 02/17/20 17:40 02/20/20 04:04 Lr - Lactated Ringers Iv IV CONT 75 mls/hr .Q20H GLADIS Administration Metoprolol S
[2020-02-20 22:00] VITALS: BP 134/73; PULSE 92; RESP 18; TEMP 36.4; O2SAT 100
[2020-02-21 06:00] VITALS: BP 150/69; PULSE 88; RESP 20; TEMP 36.4; O2SAT 100
[2020-02-21 06:59] LABS: Blood Urea Nitrogen 16 mg/dL (7-17); Calcium 7.8 mg/dL (8.4-10.2); Carbon Dioxide 25 mmol/L (22-30); Chloride 111 mmol/L (98-107); Estimated CRCL calculation 32 ml/min; Estimated Glomerular Filt Rate 54; Glucose 85 mg/dL (65-105); Potassium 3.8 mmol/L (3.4-5.0); Sodium 140 mmol/L (137-145)
[2020-02-21] MEDS: RIVAROXABAN 20 MG TABLET PO (08:23)
[2020-02-21] MEDS: FLUCONAZOLE 100 MG TABLET PO (08:23)
[2020-02-21] MEDS: PANTOPRAZOLE 40 MG TABLET PO (08:24)
[2020-02-21 08:26] VITALS: PULSE 80
[2020-02-21] MEDS: METOPROLOL SUCCINATE EXT REL 50 MG TABCR PO (08:26)
[2020-02-21] MEDS: ACETAMINOPHEN 325 MG TABLET 650 MG PO (10:11)
--- NOTE | 2020-02-21 11:14 | PCNFU ---
Nutrition Follow-Up Complete: Involuntary weight loss related to GI surgery as evidenced by reported poor appetite at 25 pound weight loss x 2 months which is significant. Goal: Patient to consume 50% of meals/supplements or greater. Nutrition goal has been met. No new goal. Pt current nutrition is Regular. Nutrition recommendation: Agree Last recorded weight is 46.7 kg. Bowel Motility: ostomy output Labs Reviewed:GFR 54 Meds Noted:Protonix Additional Notes: Nutrition follow up today. Diet order: Regular with Ensure Compact BID and Banatrol BID. Oral Intake: 75-90% of meals. Monitoring: Follow up in 7 days.
--- NOTE | 2020-02-29 08:53 | PM.DS ---
DS: Admitting Diagnosis Admitting Diagnosis Admitting Diagnosis: Hypotension, unspecified DS: Discharge Diagnosis Discharge Diagnosis (1) Hypotension: Qualifiers: Hypotension type: unspecified hypotension type Qualified Code(s): I95.9 - Hypotension, unspecified Code(s): I95.9 - Hypotension, unspecified Status: Acute Assessment and Plan: The patient was already hypotensive when she was evaluated her primary care physician's office on the . Her lisinopril was discontinued at that time but she was started on a new antihypertensive. patient's metoprolol stopped initially because it was felt the volume depletion was precipitating tachycardia. She has had history of tachycardia as well as atrial fibrillation and with her pressure rebounding restarted metoprolol succinate 50 daily 30 mL/kilos bolus of fluid in the ER and her hypotension has resolved. Continued IV hydration With creatinine normal at 1.0 and BUN down to 16 at discharge . (2) Acute kidney injury superimposed on chronic kidney disease: Code(s): N17.9 - Acute kidney failure, unspecified; N18.9 - Chronic kidney disease, unspecified Status: Acute Assessment and Plan: Due to pre renal hypotension/volume depletion and Nephro toxic medication use. Creatinine decreased to 1.0 at discharge. . (3) Hyperkalemia: Code(s): E87.5 - Hyperkalemia Status: Acute Assessment and Plan: Due to her acute on chronic renal failure. Her lisinopril was discontinued on the . K 3.8 at discharge. (4) UTI (urinary tract infection): Qualifiers: Hematuria presence: without hematuria Urinary tract infection type: site unspecified Qualified Code(s): N39.0 - Urinary tract infection, site not specified Code(s): N39.0 - Urinary tract infection, site not specified Status: Acute Assessment and Plan: Given her symptoms of increased frequency and urgency she likely had a urinary tract infection but growing yeast only. d/c ceftriaxone and started diflucan 02/18 which she will continue at discharge for 3-4 more days Urine cultures yeast and BC NG (5) Anemia: Code(s): D64.9 - Anemia, unspecified Status: Acute Assessment and Plan: Suspect all chronic disease. Hemoglobin has fallen with hydration as expected. Fe studies compatible with anemia of chronic disease DS: Summary Hospital Course Hospital Course: 74-year-old white female admitted With dehydration hypotension and acute renal failure. With hydration and adjustment of medications pressure beatrice, potassium normalized, and creatinine returned to 1.0. as blood pressure continue to rise her metoprolol was restarted with her history of hypertension as well as atrial fibrillation. She was ambulating well and takine diet well prior to time of discharge and her follow-up with her primary care within the next 2 weeks. BMP prior to that admission Time Spent with Patient Time attestation: Total time spent providing and/or coordinating discharge services: 35 minutes Exam Narrative: Exam Narrative: condition on discharge blood pressure 150/70 pulse is 86 afebrile lungs clear CV regular rate rhythm abdomen soft nontender no masses extremities without edema distal pulses are 2+ neuro alert pleasant cooperative walking the length of the wang with standby assistance and taking and diet well Discharge Plan Discharge Attending physician on discharge: Bryan Kaur Consulting providers: Kamari Adair ; Caesar Scott ; Ana Rosa Mcmullen Discharging Clinician: Bryan Kaur Patient Disposition: Home Health Service Activity: as tolerated Diet: regular Discharge Instructions: Per Care Coordination: Home Health will resume services at discharge. [facility] will follow for RN and PT/OT eval and treat. Home Health can be contacted at [phone]. Nursing please fax discharge paperwork
== END 2020-02-21 15:29 | disposition home health service (06) | DRG 684 ==
LOC: ANHED 17:39 → ANHICU 19:09 → ANH3MEDSUR 02-18 15:07 → ANHICU 02-25 13:06
PROVIDERS: Internal Medicine; Admitting Provider Family Medicine; Emergency Provider Emergency Medicine; PCP Family Medicine; Visit Provider Internal Medicine
DX: N17.9 Acute kidney failure, unspecified (principal); I95.2 Hypotension due to drugs; T46.5X5A Adverse effect of other antihypertensive drugs, initial encounter; I12.9 Hypertensive chronic kidney disease with stage 1 through stage 4 chronic kidney disease, or unspecified chronic kidney disease; N18.3 Chronic kidney disease, stage 3 (moderate); I48.0 Paroxysmal atrial fibrillation; J44.9 Chronic obstructive pulmonary disease, unspecified; J45.909 Unspecified asthma, uncomplicated; I71.4 Abdominal aortic aneurysm, without rupture; Z93.3 Colostomy status; Z85.118 Personal history of other malignant neoplasm of bronchus and lung; E87.6 Hypokalemia; Z86.718 Personal history of other venous thrombosis and embolism; Z87.891 Personal history of nicotine dependence; D63.1 Anemia in chronic kidney disease
CPT/HCPCS: 36415; 51701; 71045; 80048; 80053; 81001; 82607; 82728; 83540; 83550; 83605; 84443; 84484; 85025; 85027; 85610; 85730; 87040; 87086; 93005; 96361; 96365; 97110; 97116; 97161; 97165; 97530; 97535; 99213; 99285; A9270; G0463; J0696; J7030; J7120

== ENCOUNTER 2020-03-02 07:14 | Outpatient (RCR) | payer OTHER, SELFPAY ==
--- NOTE | 2020-01-16 12:48 | PCWOUND ---
WOCN NOTE patient did not show up for appointment. Spoke with Rashida the transporter at [facility]. She apologized that she forgot to call us. Per [facility] guidelines, they are not taking any of their residents out of the facility until further notice due to COVID 19. Instructed that once restrictions are lifted if patient still needs to be seen to contact wound center for new appointment. Spoke with Dr. Anaya and informed of situation.
[2020-02-04 13:10] VITALS: BMI 21.0
--- NOTE | 2020-02-04 14:49 | P.PNWOUND_ITS ---
Wound Care Note Date/Time: 02/04/20 14:49 History: s/p subtotal colectomy in early December in [place], [place]. She was found to have a sigmoid stricture and perforated cecum at that time. She states that the pathology came back benign. She had a wound VAC placed over a large open midline incision. She had been having difficulty with wound care due to leaking of her end ileostomy and purulence drainage from the midline wound. She was admitted to [facility] 12/27/19 for treatment of abdominal wall cellulitis and superficial surgical site infection. She is now home doing daily wound care and ostomy care. Midline wound is healing appropriately and she cannot pack any more packing into wound. Ostomy appliance has been sealing better and she can get by 2-3 days without having leaking around bag. Skin is no longer reddened or irritated. Surrounding tissue appearance: Healthy Percentage granulation tissue: 100% Dressings: Silver gel and 4x4 gauze Assessment and Plan Assessment and plan (1) Ileostomy, has currently: Code(s): Z93.2 - Ileostomy status Status: Acute Assessment and Plan: * Ostomy appliances are sealing better now and she has no signs of maceration or skin irritation. Discussed that she needs to be mindful of how much is coming from ileostomy. She can easily become dehydrated if ileostomy output is too high. She should monitor the color of her urine and drink more water to make up for ileostomy losses if urine is becoming too concentrated. (2) Superficial incisional surgical site infection: Code(s): T81.41XA - Infection following a procedure, superficial incisional surgical site, initial encounter Status: Acute Assessment and Plan: * Silver gel and 4x4 gauze dressings daily. Follow up in 2 weeks. Review of Systems Review of Systems: All systems reviewed & are unremarkable except as noted in HPI and below Exam GI: Other: Narrow midline wound with healthy granulation, very shallow without any tunneling. Ostomy appliance in RUQ without any surrounding skin irritation.
--- NOTE | 2020-03-02 14:58 | P.PNWOUND_ITS ---
Wound Care Note Date/Time: 03/02/20 14:58 History: s/p subtotal colectomy in early December in [place], [place]. She was found to have a sigmoid stricture and perforated cecum at that time. She states that the pathology came back benign. She had a wound VAC placed over a large open midline incision. She had been having difficulty with wound care due to leaking of her end ileostomy and purulence drainage from the midline wound. She was admitted to [facility] 12/27/19 for treatment of abdominal wall cellulitis and superficial surgical site infection. She is now home doing daily wound care and ostomy care. Midline wound is healing appropriately and she cannot pack any more packing into wound. Last week, she had problems with ostomy sealing to skin and she had a lot of irritation and maceration to skin. This has since improved significantly. Surrounding tissue appearance: Healthy Percentage granulation tissue: 100% Assessment and Plan Assessment and plan (1) Ileostomy, has currently: Code(s): Z93.2 - Ileostomy status Status: Acute Assessment and Plan: * No further wound healing problems. Continue local ostomy care. Will have patient follow up as needed. Exam Skin: Other: Midline wound completely healed, tiny superficial ulcer where scab recently fell off, but otherwise skin is completely approximated. Ostomy pink and level with skin. Minimal erythema to skin 0.5cm around ostomy, but no other skin irritation.
== END 2020-04-20 08:11 | disposition home or self-care (01) ==
LOC: ANHWOC 07:14
PROVIDERS: Visit Provider Surgery
DX: T81.31XD Disruption of external operation (surgical) wound, not elsewhere classified, subsequent encounter (principal); Z93.2 Ileostomy status
CPT/HCPCS: 99212; 99213; A9270; G0463

== ENCOUNTER 2020-04-01 12:33 | Outpatient (CLI) | payer OTHER, SELFPAY ==
[2020-04-01 13:00] LABS: Basophils Absolute Auto 0.1 K/mm3 (0.0-0.1); Basophils Percent Auto 0.5 % (0.2-1.2); Eosinophils Absolute Auto 0.6 K/mm3 (0-0.3); Eosinophils Percent Auto 5.1 % (0-4.4); Hematocrit 36.5 % (37.0-47.0); Hemoglobin 11.9 g/dL (12.0-15.0); Immature Granulocyte Absolute 0.04 K/mm3 (0.00-0.031); Immature Granulocyte Percent A 0.3 % (0-0.5); Lymphocytes Absolute Auto 2.95 K/mm3 (0.9-3.2); Lymphocytes Percent Auto 24.1 % (18.3-44.2); Mean Corpuscular HGB Conc 32.6 g/dl (32-36); Mean Corpuscular Hemoglobin 29.3 pg (26-34); Mean Corpuscular Volume 89.9 fl (80-100); Mean Platelet Volume 11.3 fl (7.4-10.4); Monocytes Absolute Auto 0.9 K/mm3 (0.1-0.6); Neutrophils Absolute Auto 7.7 K/mm3 (1.3-6.7); Platelet Count Result 271 k/mm3 (150-375); Red Blood Count 4.06 M/mm3 (4.2-5.4); Red Cell Distribution Width 15.6 % (11.5-14.5); White Blood Count 12.3 K/mm3 (4.5-10.0)
[2020-04-01 13:11] LABS: Anion Gap 9 mmol/L (8-16); Blood Urea Nitrogen 57 mg/dL (7-17); Calcium 9.5 mg/dL (8.4-10.2); Carbon Dioxide 19 mmol/L (22-30); Chloride 112 mmol/L (98-107); Estimated Glomerular Filt Rate 37; Glucose 99 mg/dL (65-105); Potassium 4.5 mmol/L (3.4-5.0); Sodium 140 mmol/L (137-145)
== END 2020-04-01 12:34 | disposition home or self-care (01) ==
LOC: ANHLAB 12:40
PROVIDERS: PCP Family Medicine; Visit Provider Physician Assistant
DX: E87.5 Hyperkalemia (principal); I10 Essential (primary) hypertension; D64.9 Anemia, unspecified; R94.6 Abnormal results of thyroid function studies
CPT/HCPCS: 36415; 80048; 84443; 85025

== ENCOUNTER 2020-04-17 14:03 | Outpatient (CLI) | payer OTHER, SELFPAY ==
[2020-04-17 14:32] LABS: Add Urine Microscopic? YES; Appearance Urine Clear (Clear); Bilirubin Urine Negative (Negative); Blood Urine Negative (Negative); Color Urine Yellow (Yellow); Glucose Urine UA Negative (Negative); Hyaline Casts Urine 15-19 /lpf; Ketones Urine Negative (Negative); Leukocyte Esterase Ur Trace LEU/UL (NEGATIVE); Mucus Urine Rare /lpf; Nitrate Urine Negative (Negative); Protein Urine Negative (Negative); RBC Urine 0-2 /hpf (0-2); Specific Grav Ur 1.017 (1.001-1.035); Squamous Epithelial Cell Urine Rare /hpf (Few); Urobilinogen Urine Negative mg/dL (<2.0)
== END 2020-04-17 14:04 | disposition home or self-care (01) ==
PROVIDERS: PCP Family Medicine; Visit Provider Physician Assistant
DX: N39.0 Urinary tract infection, site not specified (principal); R31.9 Hematuria, unspecified
CPT/HCPCS: 81001; 87077; 87086; 87088; 87186

== ENCOUNTER 2020-04-27 11:55 | Outpatient (CLI) | payer OTHER, SELFPAY ==
[2020-04-27 12:42] LABS: Basophils Percent Auto 0.5 % (0.2-1.2); Eosinophils Absolute Auto 0.2 K/mm3 (0-0.3); Eosinophils Percent Auto 2.3 % (0-4.4); Hematocrit 37.3 % (37.0-47.0); Hemoglobin 11.5 g/dL (12.0-15.0); Immature Granulocyte Absolute 0.04 K/mm3 (0.00-0.031); Immature Granulocyte Percent A 0.5 % (0-0.5); Lymphocytes Percent Auto 25.2 % (18.3-44.2); Mean Corpuscular HGB Conc 30.8 g/dl (32-36); Mean Platelet Volume 11.1 fl (7.4-10.4); Monocytes Absolute Auto 0.6 K/mm3 (0.1-0.6); Monocytes Percent Auto 7.7 % (2.6-8.5); Neutrophils Absolute Auto 5.3 K/mm3 (1.3-6.7); Neutrophils Percent Auto 63.8 % (45.5-73.1); Platelet Count Result 227 k/mm3 (150-375); Red Blood Count 3.97 M/mm3 (4.2-5.4); Red Cell Distribution Width 15.3 % (11.5-14.5); White Blood Count 8.3 K/mm3 (4.5-10.0)
[2020-04-27 12:48] LABS: Anion Gap 5 mmol/L (8-16); Blood Urea Nitrogen 32 mg/dL (7-17); Calcium 8.9 mg/dL (8.4-10.2); Carbon Dioxide 18 mmol/L (22-30); Chloride 120 mmol/L (98-107); Estimated Glomerular Filt Rate 37; Glucose 88 mg/dL (65-105); Potassium 4.4 mmol/L (3.4-5.0); Sodium 143 mmol/L (137-145)
== END 2020-04-27 11:56 | disposition home or self-care (01) ==
LOC: ANHLAB 11:57
PROVIDERS: PCP Family Medicine; Visit Provider Physician Assistant
DX: D72.829 Elevated white blood cell count, unspecified (principal); N18.3 Chronic kidney disease, stage 3 (moderate); N39.0 Urinary tract infection, site not specified
CPT/HCPCS: 36415; 80048; 85025

== ENCOUNTER 2020-07-07 10:33 | Outpatient (CLI) | payer OTHER, SELFPAY ==
[2020-07-07 11:27] LABS: Anion Gap 9 mmol/L (8-16); Blood Urea Nitrogen 44 mg/dL (7-17); Calcium 8.7 mg/dL (8.4-10.2); Carbon Dioxide 11 mmol/L (22-30); Chloride 123 mmol/L (98-107); Estimated Glomerular Filt Rate 31; Glucose 98 mg/dL (65-105); Potassium 5.1 mmol/L (3.4-5.0); Sodium 143 mmol/L (137-145)
[2020-07-07 11:43] LABS: Add Urine Microscopic? YES; Appearance Urine Clear (Clear); Bacteria Urine Trace /hpf; Bilirubin Urine Negative (Negative); Blood Urine Negative (Negative); Color Urine Yellow (Yellow); Glucose Urine UA Negative (Negative); Ketones Urine Negative (Negative); Leukocyte Esterase Ur Trace LEU/UL (NEGATIVE); Mucus Urine Rare /lpf; Nitrate Urine Negative (Negative); Protein Urine Negative (Negative); RBC Urine 0-2 /hpf (0-2); Specific Grav Ur 1.016 (1.001-1.035); Squamous Epithelial Cell Urine Occasional /hpf (Few); Urobilinogen Urine Negative mg/dL (<2.0); WBC Urine 0-3 /hpf (0-3)
== END 2020-07-07 10:34 | disposition home or self-care (01) ==
LOC: ANHLAB 10:34
PROVIDERS: PCP Family Medicine; Visit Provider Physician Assistant
DX: N18.30 Chronic kidney disease, stage 3 unspecified (principal); N39.0 Urinary tract infection, site not specified
CPT/HCPCS: 36415; 80048; 81001; 87077; 87086; 87088; 87186

== ENCOUNTER 2020-07-15 15:00 | Outpatient (CLI) | payer OTHER, SELFPAY ==
--- NOTE | ~2020-07-15 | US_ITS ---
EXAMINATION: US venous doppler [facility] DATE: 07/15/2020 15:35 INDICATION: Personal history of other venous thrombosis and embolism TECHNIQUE: [place] scale images without and with compression and Doppler images of the bilateral lower e xtremity veins were obtained. COMPARISON: 10/14/2019 FINDINGS: The right common femoral vein, profunda femoral vein, femoral vein, popliteal vein, peroneal trunk, p osterior tibial veins, and greater saphenous vein are patent. The left common femoral vein, profunda femoral vein, femoral vein, popliteal vein, peroneal trunk, po sterior tibial veins, and greater saphenous vein are patent. IMPRESSION: 1. Patent bilateral lower extremity veins. No evidence of deep venous thrombosis. Reviewed, dictated and finalized at location A. [employer] IMPRESSION: 1. Patent bilateral lower extremity veins. No evidence of deep venous thrombosi s.
== END 2020-07-15 15:01 | disposition home or self-care (01) ==
PROVIDERS: PCP Family Medicine; Visit Provider Family Medicine
DX: Z86.718 Personal history of other venous thrombosis and embolism (principal)
CPT/HCPCS: 93970

== ENCOUNTER 2020-07-23 08:45 | Outpatient (CLI) | payer OTHER, SELFPAY ==
[2020-07-23 10:08] LABS: Add Urine Microscopic? YES; Appearance Urine Clear (Clear); Bacteria Urine Trace /hpf; Bilirubin Urine Negative (Negative); Blood Urine 1+ (Negative); Color Urine Yellow (Yellow); Glucose Urine UA Negative (Negative); Ketones Urine Negative (Negative); Leukocyte Esterase Ur 2+ LEU/UL (NEGATIVE); Mucus Urine Rare /lpf; Nitrate Urine Negative (Negative); Protein Urine 1+ mg/dL (Negative); Specific Grav Ur 1.017 (1.001-1.035); Squamous Epithelial Cell Urine Rare /hpf (Few); Transitional Epi Cells Urine Rare /hpf (None Seen); Urobilinogen Urine Negative mg/dL (<2.0); WBC Urine 31-50 /hpf (0-3)
[2020-07-23 10:28] LABS: Anion Gap 10 mmol/L (8-16); Blood Urea Nitrogen 39 mg/dL (7-17); Calcium 8.8 mg/dL (8.4-10.2); Carbon Dioxide 13 mmol/L (22-30); Chloride 121 mmol/L (98-107); Estimated Glomerular Filt Rate 29; Glucose 90 mg/dL (65-105); Potassium 5.3 mmol/L (3.4-5.0); Sodium 144 mmol/L (137-145)
== END 2020-07-23 08:46 | disposition home or self-care (01) ==
PROVIDERS: PCP Family Medicine; Visit Provider Physician Assistant
DX: E87.5 Hyperkalemia (principal); N17.9 Acute kidney failure, unspecified; N18.9 Chronic kidney disease, unspecified; N39.0 Urinary tract infection, site not specified
CPT/HCPCS: 36415; 80048; 81001; 87077; 87086; 87088

== ENCOUNTER 2020-08-26 10:10 | Outpatient (CLI) | payer OTHER, SELFPAY ==
[2020-08-26 10:58] LABS: Add Urine Microscopic? YES; Appearance Urine Cloudy (Clear); Bacteria Urine Trace /hpf; Bilirubin Urine Negative (Negative); Blood Urine Negative (Negative); Color Urine Yellow (Yellow); Glucose Urine UA Negative (Negative); Hyaline Casts Urine 15-19 /lpf; Ketones Urine Negative (Negative); Leukocyte Esterase Ur 2+ LEU/UL (NEGATIVE); Mucus Urine Rare /lpf; Nitrate Urine Negative (Negative); Protein Urine 1+ mg/dL (Negative); Specific Grav Ur 1.017 (1.001-1.035); Squamous Epithelial Cell Urine Occasional /hpf (Few); Urobilinogen Urine Negative mg/dL (<2.0); WBC Urine 51-75 /hpf (0-3)
[2020-08-26 11:11] LABS: Anion Gap 11 mmol/L (8-16); Blood Urea Nitrogen 36 mg/dL (7-17); Carbon Dioxide 11 mmol/L (22-30); Chloride 122 mmol/L (98-107); Estimated Glomerular Filt Rate 31; Glucose 99 mg/dL (65-105); Potassium 5.9 mmol/L (3.4-5.0); Sodium 144 mmol/L (137-145)
== END 2020-08-26 10:11 | disposition home or self-care (01) ==
PROVIDERS: PCP Family Medicine; Visit Provider Physician Assistant
DX: E87.5 Hyperkalemia (principal); N17.9 Acute kidney failure, unspecified; N18.9 Chronic kidney disease, unspecified; N39.0 Urinary tract infection, site not specified
CPT/HCPCS: 36415; 80048; 81001; 87077; 87086; 87088

== ENCOUNTER 2020-09-04 10:07 | Outpatient (CLI) | payer OTHER, SELFPAY ==
[2020-09-04 11:22] LABS: Anion Gap 10 mmol/L (8-16); Blood Urea Nitrogen 47 mg/dL (7-17); Calcium 8.8 mg/dL (8.4-10.2); Carbon Dioxide 10 mmol/L (22-30); Chloride 120 mmol/L (98-107); Estimated Glomerular Filt Rate 31; Glucose 102 mg/dL (65-105); Potassium 5.3 mmol/L (3.4-5.0); Sodium 140 mmol/L (137-145)
== END 2020-09-04 10:08 | disposition home or self-care (01) ==
LOC: ANHLAB 10:08
PROVIDERS: PCP Family Medicine; Visit Provider Physician Assistant
DX: E87.5 Hyperkalemia (principal)
CPT/HCPCS: 36415; 80048

== ENCOUNTER 2020-11-30 10:06 | Outpatient (CLI) | payer OTHER, SELFPAY ==
[2020-11-30 10:49] LABS: Albumin Level 3.8 g/dL (3.5-5.1); Anion Gap 8 mmol/L (8-16); Blood Urea Nitrogen 35 mg/dL (7-17); Calcium 8.4 mg/dL (8.4-10.2); Carbon Dioxide 16 mmol/L (22-30); Chloride 119 mmol/L (98-107); Estimated Glomerular Filt Rate 29; Glucose 101 mg/dL (65-105); Potassium 4.9 mmol/L (3.4-5.0); Sodium 143 mmol/L (137-145)
[2020-11-30 10:56] LABS: Complement C3 104 mg/dL (88-165)
[2020-11-30 15:56] LABS: Total Protein Urine Random 23 mg/dL; Ur Ttl Prot Creatinine Ratio 0.27 mg/mg (0-0.20)
[2020-11-30 15:57] LABS: Sodium Urine Random 119 meq/L
[2020-11-30 17:01] LABS: Eosinophil Urine None Seen % (None Seen)
[2020-12-02 22:55] LABS: Abnormal Protein Band 1 1.3 g/dL; Albumin 3.7 g/dL (3.8-4.8); Alpha 1 Globulin 0.3 g/dL (0.2-0.3); Alpha 2 Globulin 0.9 g/dL (0.5-0.9); Beta 1 Globulin 0.4 g/dL (0.4-0.6); Gamma Globulin 1.6 g/dL (0.8-1.7); Protein, Total 7.1 g/dL (6.1-8.1)
[2020-12-05 01:25] LABS: ANCA Screen Negative (Negative)
[2020-12-06 12:41] LABS: Anti Glomerular Basement Memb <1.0 AI (<1.0)
[2020-12-07 11:25] LABS: Creatinine, Random Urine 86
[2020-12-07 11:26] LABS: Abnormal Protein Band 1 6
[2020-12-07 11:28] LABS: Total Protein/Creatinine Ratio 570
== END 2020-11-30 10:07 | disposition home or self-care (01) ==
PROVIDERS: PCP Family Medicine; Visit Provider Internal Medicine Nephrology
DX: I12.9 Hypertensive chronic kidney disease with stage 1 through stage 4 chronic kidney disease, or unspecified chronic kidney disease (principal); N17.8 Other acute kidney failure; N18.31 Chronic kidney disease, stage 3a
CPT/HCPCS: 36415; 80069; 82570; 83520; 84155; 84156; 84165; 84166; 84300; 85999; 86021; 86038; 86160; 86225

== ENCOUNTER 2021-04-14 11:26 | Outpatient (CLI) | payer OTHER, SELFPAY | END 2021-04-14 11:27 | disposition home or self-care (01) | LOC: ANHLAB 11:34 | PROVIDERS: PCP Family Medicine; Visit Provider Physician Assistant | DX: N39.0 Urinary tract infection, site not specified (principal) | CPT/HCPCS: 87077; 87086; 87088; 87186 ==

== ENCOUNTER 2021-05-19 11:44 | Outpatient (CLI) | payer OTHER, SELFPAY ==
[2021-05-19 12:29] LABS: Basophils Absolute Auto 0.1 K/mm3 (0.0-0.1); Basophils Percent Auto 0.5 % (0.2-1.2); Eosinophils Absolute Auto 0.2 K/mm3 (0-0.3); Eosinophils Percent Auto 2.5 % (0-4.4); Hematocrit 35.2 % (37.0-47.0); Hemoglobin 11.3 g/dL (12.0-15.0); Lymphocytes Absolute Auto 1.85 K/mm3 (0.9-3.2); Mean Corpuscular HGB Conc 32.1 g/dl (32-36); Mean Corpuscular Hemoglobin 30.3 pg (26-34); Mean Corpuscular Volume 94.4 fl (80-100); Mean Platelet Volume 11.1 fl (7.4-10.4); Monocytes Absolute Auto 0.7 K/mm3 (0.1-0.6); Monocytes Percent Auto 7.5 % (2.6-8.5); Neutrophils Absolute Auto 6.8 K/mm3 (1.3-6.7); Neutrophils Percent Auto 69.5 % (45.5-73.1); Platelet Count Result 181 k/mm3 (150-375); Red Blood Count 3.73 M/mm3 (4.2-5.4); Red Cell Distribution Width 13.7 % (11.5-14.5); White Blood Count 9.7 K/mm3 (4.5-10.0)
[2021-05-19 12:53] LABS: Add Urine Microscopic? YES; Appearance Urine Clear (Clear); Bacteria Urine Trace /hpf; Bilirubin Urine Negative (Negative); Blood Urine Negative (Negative); Color Urine Yellow (Yellow); Glucose Urine UA Negative (Negative); Ketones Urine Negative (Negative); Leukocyte Esterase Ur 2+ LEU/UL (NEGATIVE); Mucus Urine Rare /lpf; Nitrate Urine Negative (Negative); Protein Urine Negative (Negative); Specific Grav Ur 1.017 (1.001-1.035); Squamous Epithelial Cell Urine Few /hpf (Few); Urobilinogen Urine Negative mg/dL (<2.0)
[2021-05-19 12:55] LABS: Cholesterol 179 mg/dL (0-200); HDL Direct 33 mg/dL; Triglycerides 225 mg/dL (<150)
[2021-05-19 13:06] LABS: LDL Cholesterol Direct 84 mg/dL
== END 2021-05-19 11:45 | disposition home or self-care (01) ==
PROVIDERS: PCP Family Medicine; Visit Provider Nurse Practitioner Family
DX: N18.30 Chronic kidney disease, stage 3 unspecified (principal); D64.9 Anemia, unspecified; N17.9 Acute kidney failure, unspecified; E87.5 Hyperkalemia; E78.2 Mixed hyperlipidemia; I48.91 Unspecified atrial fibrillation; I12.9 Hypertensive chronic kidney disease with stage 1 through stage 4 chronic kidney disease, or unspecified chronic kidney disease
CPT/HCPCS: 36415; 80061; 81001; 84443; 85025

== ENCOUNTER 2021-08-18 15:06 | Outpatient (CLI) | payer OTHER, SELFPAY ==
[2021-08-18 15:34] LABS: Basophils Absolute Auto 0.1 K/mm3 (0.0-0.1); Basophils Percent Auto 0.7 % (0.2-1.2); Eosinophils Absolute Auto 0.2 K/mm3 (0-0.3); Eosinophils Percent Auto 1.8 % (0-4.4); Hematocrit 35.9 % (37.0-47.0); Hemoglobin 11.2 g/dL (12.0-15.0); Immature Granulocyte Absolute 0.08 K/mm3 (0.00-0.031); Immature Granulocyte Percent A 0.6 % (0-0.5); Lymphocytes Absolute Auto 2.41 K/mm3 (0.9-3.2); Lymphocytes Percent Auto 19.4 % (18.3-44.2); Mean Corpuscular HGB Conc 31.2 g/dl (32-36); Mean Corpuscular Hemoglobin 30.1 pg (26-34); Mean Corpuscular Volume 96.5 fl (80-100); Monocytes Absolute Auto 0.9 K/mm3 (0.1-0.6); Monocytes Percent Auto 7.4 % (2.6-8.5); Neutrophils Absolute Auto 8.7 K/mm3 (1.3-6.7); Neutrophils Percent Auto 70.1 % (45.5-73.1); Platelet Count Result 291 k/mm3 (150-375); Red Blood Count 3.72 M/mm3 (4.2-5.4); Red Cell Distribution Width 12.9 % (11.5-14.5); White Blood Count 12.4 K/mm3 (4.5-10.0)
[2021-08-18 15:45] LABS: Alanine Aminotransferase 50 U/L (4-35); Albumin Level 4.7 g/dL (3.5-5.1); Alkaline Phosphatase 92 U/L (38-126); Anion Gap 13 mmol/L (8-16); Aspartate Amino Transferase 35 U/L (14-36); Bilirubin,Total 0.4 mg/dL (0.2-1.3); Blood Urea Nitrogen 46 mg/dL (7-17); Calcium 8.3 mg/dL (8.4-10.2); Carbon Dioxide 19 mmol/L (22-30); Chloride 108 mmol/L (98-107); Estimated Glomerular Filt Rate 21; Glucose 117 mg/dL (65-110); Magnesium 1.3 mg/dL (1.6-2.3); Potassium 5.5 mmol/L (3.4-5.0); Sodium 140 mmol/L (137-145)
[2021-08-18 15:46] LABS: Add Urine Microscopic? YES; Appearance Urine Cloudy (Clear); Bilirubin Urine Negative (Negative); Blood Urine Negative (Negative); Color Urine Yellow (Yellow); Glucose Urine UA Negative (Negative); Ketones Urine Negative (Negative); Leukocyte Esterase Ur 3+ LEU/UL (NEGATIVE); Mucus Urine Rare /lpf; Nitrate Urine Negative (Negative); Protein Urine Negative (Negative); Specific Grav Ur 1.018 (1.001-1.035); Squamous Epithelial Cell Urine Moderate /hpf (Few); Transitional Epi Cells Urine Rare /hpf (None Seen); Urobilinogen Urine Negative mg/dL (<2.0); WBC Urine >75 /hpf (0-3)
== END 2021-08-18 15:07 | disposition home or self-care (01) ==
LOC: ANHLAB 15:10
PROVIDERS: PCP Family Medicine; Visit Provider Physician Assistant
DX: N18.30 Chronic kidney disease, stage 3 unspecified (principal); D64.9 Anemia, unspecified; N17.9 Acute kidney failure, unspecified; N39.0 Urinary tract infection, site not specified; R00.0 Tachycardia, unspecified; E87.6 Hypokalemia
CPT/HCPCS: 36415; 80053; 81001; 83735; 84100; 84443; 85025; 87086; 87088

== ENCOUNTER 2021-08-24 10:35 | Outpatient (CLI) | payer OTHER, SELFPAY ==
[2021-08-24 11:00] LABS: Basophils Absolute Auto 0.1 K/mm3 (0.0-0.1); Basophils Percent Auto 0.9 % (0.2-1.2); Eosinophils Absolute Auto 0.3 K/mm3 (0-0.3); Eosinophils Percent Auto 2.6 % (0-4.4); Hematocrit 36.7 % (37.0-47.0); Hemoglobin 11.6 g/dL (12.0-15.0); Immature Granulocyte Absolute 0.12 K/mm3 (0.00-0.031); Lymphocytes Absolute Auto 3.62 K/mm3 (0.9-3.2); Mean Corpuscular HGB Conc 31.6 g/dl (32-36); Mean Corpuscular Hemoglobin 30.4 pg (26-34); Mean Corpuscular Volume 96.3 fl (80-100); Mean Platelet Volume 10.7 fl (7.4-10.4); Monocytes Absolute Auto 0.9 K/mm3 (0.1-0.6); Monocytes Percent Auto 7.3 % (2.6-8.5); Neutrophils Absolute Auto 7.4 K/mm3 (1.3-6.7); Neutrophils Percent Auto 59.2 % (45.5-73.1); Platelet Count Result 283 k/mm3 (150-375); Red Blood Count 3.81 M/mm3 (4.2-5.4); Red Cell Distribution Width 13.1 % (11.5-14.5); White Blood Count 12.5 K/mm3 (4.5-10.0)
[2021-08-24 11:09] LABS: Add Urine Microscopic? YES; Appearance Urine Cloudy (Clear); Bacteria Urine Trace /hpf; Bilirubin Urine Negative (Negative); Blood Urine Negative (Negative); Color Urine Yellow (Yellow); Glucose Urine UA Negative (Negative); Ketones Urine Negative (Negative); Leukocyte Esterase Ur 3+ LEU/UL (NEGATIVE); Mucus Urine Rare /lpf; Nitrate Urine Negative (Negative); Protein Urine Negative (Negative); Specific Grav Ur 1.018 (1.001-1.035); Squamous Epithelial Cell Urine Many /hpf (Few); Urobilinogen Urine Negative mg/dL (<2.0); WBC Urine >75 /hpf (0-3)
[2021-08-24 14:45] LABS: Alanine Aminotransferase 36 U/L (4-35); Albumin Level 4.2 g/dL (3.5-5.1); Alkaline Phosphatase 91 U/L (38-126); Anion Gap 14 mmol/L (8-16); Aspartate Amino Transferase 29 U/L (14-36); Bilirubin,Total 0.4 mg/dL (0.2-1.3); Blood Urea Nitrogen 42 mg/dL (7-17); Calcium 8.8 mg/dL (8.4-10.2); Carbon Dioxide 15 mmol/L (22-30); Chloride 110 mmol/L (98-107); Estimated Glomerular Filt Rate 24; Glucose 115 mg/dL (65-110); Potassium 5.5 mmol/L (3.4-5.0); Sodium 139 mmol/L (137-145)
== END 2021-08-24 10:36 | disposition home or self-care (01) ==
PROVIDERS: PCP Family Medicine; Visit Provider Physician Assistant
DX: D72.829 Elevated white blood cell count, unspecified (principal); R00.0 Tachycardia, unspecified; I95.9 Hypotension, unspecified; E87.5 Hyperkalemia; N17.9 Acute kidney failure, unspecified; N18.9 Chronic kidney disease, unspecified; D64.9 Anemia, unspecified; R31.9 Hematuria, unspecified
CPT/HCPCS: 36415; 80053; 81001; 85025; 87086; 87088

== ENCOUNTER 2021-09-07 10:49 | Outpatient (CLI) | payer OTHER, SELFPAY ==
[2021-09-07 11:56] LABS: Alanine Aminotransferase 33 U/L (4-35); Albumin Level 4.5 g/dL (3.5-5.1); Alkaline Phosphatase 94 U/L (38-126); Anion Gap 11 mmol/L (8-16); Aspartate Amino Transferase 27 U/L (14-36); Bilirubin,Total 0.2 mg/dL (0.2-1.3); Blood Urea Nitrogen 43 mg/dL (7-17); Calcium 9.3 mg/dL (8.4-10.2); Carbon Dioxide 15 mmol/L (22-30); Chloride 117 mmol/L (98-107); Cholesterol 208 mg/dL (0-200); Estimated Glomerular Filt Rate 20; Glucose 103 mg/dL (65-110); HDL Direct 35 mg/dL; Sodium 143 mmol/L (137-145); Triglycerides 187 mg/dL (<150)
[2021-09-07 11:57] LABS: D Dimer 0.65 ug/mL (<0.48)
[2021-09-07 12:08] LABS: LDL Cholesterol Direct 95 mg/dL
== END 2021-09-07 10:50 | disposition home or self-care (01) ==
LOC: ANHLAB 11:01
PROVIDERS: PCP Family Medicine
DX: K57.92 Diverticulitis of intestine, part unspecified, without perforation or abscess without bleeding (principal); I10 Essential (primary) hypertension; I48.0 Paroxysmal atrial fibrillation; Z87.891 Personal history of nicotine dependence; R07.9 Chest pain, unspecified
CPT/HCPCS: 36415; 80053; 80061; 84443; 85380

== ENCOUNTER 2021-10-21 13:04 | Outpatient (CLI) | payer OTHER, SELFPAY ==
[2021-10-21 14:03] LABS: CRP 0.5 mg/dL (<1.0)
[2021-10-21 14:17] LABS: Erythrocyte Sedimentation Rate 45 mm/hr (0-20)
[2021-10-21 14:29] LABS: Albumin Level 4.5 g/dL (3.5-5.1); Anion Gap 12 mmol/L (8-16); Blood Urea Nitrogen 48 mg/dL (7-17); Carbon Dioxide 17 mmol/L (22-30); Chloride 114 mmol/L (98-107); Estimated Glomerular Filt Rate 18; Glucose 98 mg/dL (65-110); Phosphorus 5.4 mg/dL (2.5-4.5); Potassium 5.7 mmol/L (3.4-5.0); Sodium 143 mmol/L (137-145)
[2021-10-21 14:38] LABS: Parathyroid Intact 93.5 pg/mL (7.5-53.5)
[2021-10-21 15:03] LABS: Vitamin D 25 Hydroxy 42.3 ng/mL
[2021-10-21 15:04] LABS: Creatinine Urine 156.2 mg/dL; Total Protein Urine Random 57 mg/dL; Ur Ttl Prot Creatinine Ratio 0.36 mg/mg (0-0.20)
== END 2021-10-21 13:05 | disposition home or self-care (01) ==
PROVIDERS: PCP Family Medicine; Referring Provider Internal Medicine Nephrology
DX: R80.8 Other proteinuria (principal); R53.83 Other fatigue; I12.9 Hypertensive chronic kidney disease with stage 1 through stage 4 chronic kidney disease, or unspecified chronic kidney disease; N18.31 Chronic kidney disease, stage 3a
CPT/HCPCS: 36415; 80069; 82306; 82570; 83970; 84156; 85652; 86140

== ENCOUNTER 2021-11-16 13:21 | Outpatient (CLI) | payer OTHER, SELFPAY ==
[2021-11-16 14:07] LABS: Basophils Absolute Auto 0.1 K/mm3 (0.0-0.1); Basophils Percent Auto 0.8 % (0.2-1.2); Eosinophils Absolute Auto 0.3 K/mm3 (0-0.3); Eosinophils Percent Auto 2.1 % (0-4.4); Hematocrit 36.2 % (37.0-47.0); Hemoglobin 11.3 g/dL (12.0-15.0); Immature Granulocyte Percent A 0.7 % (0-0.5); Lymphocytes Absolute Auto 3.23 K/mm3 (0.9-3.2); Lymphocytes Percent Auto 23.9 % (18.3-44.2); Mean Corpuscular HGB Conc 31.2 g/dl (32-36); Mean Corpuscular Hemoglobin 30.9 pg (26-34); Mean Corpuscular Volume 98.9 fl (80-100); Mean Platelet Volume 11.2 fl (7.4-10.4); Monocytes Percent Auto 7.3 % (2.6-8.5); Neutrophils Absolute Auto 8.8 K/mm3 (1.3-6.7); Neutrophils Percent Auto 65.2 % (45.5-73.1); Platelet Count Result 317 k/mm3 (150-375); Red Blood Count 3.66 M/mm3 (4.2-5.4); White Blood Count 13.5 K/mm3 (4.5-10.0)
[2021-11-16 14:24] LABS: Alanine Aminotransferase 47 U/L (4-35); Albumin Level 4.7 g/dL (3.5-5.1); Alkaline Phosphatase 99 U/L (38-126); Anion Gap 13 mmol/L (8-16); Aspartate Amino Transferase 32 U/L (14-36); Bilirubin,Total 0.3 mg/dL (0.2-1.3); Blood Urea Nitrogen 78 mg/dL (7-17); Calcium 8.9 mg/dL (8.4-10.2); Carbon Dioxide 9 mmol/L (22-30); Chloride 114 mmol/L (98-107); Estimated Glomerular Filt Rate 16; Glucose 121 mg/dL (65-110); Potassium 5.8 mmol/L (3.4-5.0); Sodium 136 mmol/L (137-145)
== END 2021-11-16 13:22 | disposition home or self-care (01) ==
PROVIDERS: PCP Family Medicine; Referring Provider Internal Medicine Nephrology; Visit Provider Nurse Practitioner Family
DX: N18.30 Chronic kidney disease, stage 3 unspecified (principal); D64.9 Anemia, unspecified
CPT/HCPCS: 36415; 80053; 85025

== ENCOUNTER 2021-11-16 22:35 | Inpatient (IN) | payer OTHER, SELFPAY ==
--- NOTE | ~2021-11-16 | XR_ITS ---
EXAMINATION: XR bone survey comp/metastic DATE: 11/18/2021 10:11 INDICATION: Multiple myeloma. TECHNIQUE: 29 views of a skeletal survey were obtained. COMPARISON: CT abdomen and pelvis 12/27/2019, PET/CT 01/24/2018 FINDINGS: There is volume loss of left lung, likely from left upper lobectomy. There is mild scarring in left midlung zone. There is diffuse osteopenia. Surgical clips in the right upper quadrant are li xuan from cholecystectomy. There is a 3.2 cm fusiform aneurysm of infrarenal aorta. A 5 mm lytic lesi on in the skull is stable from 02/01/2018. IMPRESSION: 1. No specific evidence of multiple myeloma. Reviewed, dictated and finalized at location A.
--- NOTE | ~2021-11-16 | XR_ITS ---
EXAMINATION: XR chest 1V portable INDICATION: Shortness of breath TECHNIQUE: Portable AP chest at 2338 hours COMPARISON: 02/17/2020 FINDINGS: The lungs are free of acute opacities. There is no pleural effusion or pneumothorax. There is mild volume loss in the left lung with a suture line seen in the left midlung zone, consistent wit h prior left upper lobectomy. IMPRESSION: 1. No acute cardiopulmonary abnormality. Reviewed, dictated and finalized at location A.
--- NOTE | ~2021-11-16 | US_ITS ---
EXAMINATION: US renal BI EXAM DATE: 11/17/2021 11:10 INDICATION: Acute kidney insufficiency. TECHNIQUE: Multiple grayscale and Doppler images of the kidneys were obtained (by a technologist who performed the scan) and subsequently reviewed. There is no prior study for comparison. FINDINGS: There is substantial bilateral renal cortical thinning. Right kidney: There is normal contour and echogenicity. It measures 9.1 x 3.8 x 4.3 centimeters. Th ere are no focal renal lesions identified. There is no hydronephrosis. Left kidney: There is normal contour and echogenicity. It measures 10.1 x 3.7 x 4.4 centimeters. Th ere are no focal renal lesions identified. There is no hydronephrosis. Bladder unremarkable. IMPRESSION: 1. Bilateral renal cortical thinning, atrophy. 2. No hydronephrosis. Reviewed, dictated and finalized at location B.
[2021-11-16 22:39] VITALS: BP 118/66; PULSE 117; RESP 22; TEMP 36.4; O2SAT 98
[2021-11-16 23:13] VITALS: BP 157/65; PULSE 95; RESP 14; RESP 18; O2SAT 100
--- NOTE | 2021-11-16 23:18 | ECG_ITS ---
Measurements Intervals [place] Rate: 90 P: 94 MA: 170 QRS: 42 QRSD: 82 T: 67 QT: 336 QTc: 413 Interpretive Statements SINUS RHYTHM NORMAL ECG COMPARED TO ECG 02/17/2020 15:10:23 SINUS RHYTHM NOW PRESENT Electronically Signed On 11-17-2021 15:46:40 CDT by Kumar Campuzano M.D.
--- NOTE | 2021-11-16 23:20 | ED.GENADULT ---
HPI - General Adult General Chief complaint: Recheck/Abnormal Lab/Rx Stated complaint: JOSIAS Time Seen by Provider: 11/16/21 23:12 Source: patient Mode of arrival: ambulatory Limitations: no limitations History of Present Illness HPI narrative: 76-year-old female presents to the emergency room after she had some outpatient labs done today that were abnormal. She was called and told that her kidney function was not good as well as an elevation of potassium and a urinary tract infection was told to come to the emergency room. Patient's had a history of some chronic renal insufficiency. Interestingly enough she states she was at [facility] in [place] a month or so ago and they did 1 dialysis on her through a temporary port they put in her right neck and told her that she may not need dialysis anymore. She states she is frequent urinary tract infections. She states she has been feeling short of breath with activity lately. No chills or fevers. No productive cough. She was taking Xarelto she is not exactly sure why she was taken up as they have switched her over to Eliquis. Related Data Allergies Allergy/AdvReac Type Severity Reaction Status Date / Time BENCONATATE AdvReac Severe COUGH Uncoded 11/05/21 10:50 Review of Systems Review of Systems: CONSTITUTIONAL: Denies fever, chills, or sweats. EYES: Denies visual changes, redness, or discharge. ENT: Denies rhinorrhea, congestion, sore throat, or otalgia. CARDIOVASCULAR: Denies chest pain, palpitations, or edema. RESPIRATORY: Been having some shortness of breath with exertion. No productive cough.. GASTROINTESTINAL: Denies abdominal pain, nausea, vomiting, or diarrhea. GENITOURINARY: Denies dysuria or hematuria. SKIN: Denies rash or itching. MUSCULOSKELETAL: Denies back pain, joint pain, or myalgia. NEUROLOGIC: Denies headache, numbness, or weakness. PSYCHIATRIC: Denies anxiety or depression. [facility] Past Medical History Medical History Abdominal aortic aneurysm 3 cm distal abdominal aortic aneurysm Atrial fibrillation Paroxysmal Chronic kidney disease, stage [address] COPD with asthma PFTs February 2018 consistent with COPD/asthma overlap with good bronchodilator response Depression Diverticulitis With perforation status post exploratory laparotomy with colostomy DVT (deep venous thrombosis) Right peroneal october 2019 H/O: lung cancer She had left upper lobectomy but no chemo or radiation. Hypertension Hypertensive kidney disease with CKD stage III Hypokalemia Lumbar foraminal stenosis L2-L3 neural foraminal stenosis on CT scan January 2020 Pure hyperglyceridemia Yeast UTI Surgical History Surgical History Chronic kidney disease, stage 3 (moderate) H/O exploratory laparotomy Due to severe diverticulitis of the colon with perforation H/O total colectomy Subtotal colectomy december 2019 in [facility] due to sigmoid stricture and perforated cecum History of colonoscopy Performed by Dr. Sprague 10/09/2019 demonstrated diverticulitis without perforation or abscess, colonic spasm History of esophagogastroduodenoscopy (EGD) January 2020 demonstrating gastritis and duodenitis History of tubal ligation Hx of cholecystectomy October 2017 S/P lobectomy of lung Left upper lobe due to lung cancer Status post cataract extraction of both eyes with insertion of intraocular lens Family History Family History Mother Hypertension Ovarian cancer Cerebrovascular accident Sibling Hypertension Diverticulitis Liver disease Father Lung cancer Social History Social History Social History: The patient is currently in rehab at [facility]. She has 2 sons. She is . She is to smoke man
[2021-11-16 23:30] VITALS: BMI 25.4
[2021-11-16 23:31] LABS: Basophils Absolute Auto 0.1 K/mm3 (0.0-0.1); Basophils Percent Auto 0.7 % (0.2-1.2); Eosinophils Absolute Auto 0.3 K/mm3 (0-0.3); Eosinophils Percent Auto 1.9 % (0-4.4); Hematocrit 34.9 % (37.0-47.0); Hemoglobin 11.5 g/dL (12.0-15.0); Immature Granulocyte Absolute 0.12 K/mm3 (0.00-0.031); Immature Granulocyte Percent A 0.7 % (0-0.5); Lymphocytes Absolute Auto 4.73 K/mm3 (0.9-3.2); Lymphocytes Percent Auto 26.8 % (18.3-44.2); Mean Corpuscular Hemoglobin 31.4 pg (26-34); Mean Corpuscular Volume 95.4 fl (80-100); Mean Platelet Volume 11.7 fl (7.4-10.4); Monocytes Absolute Auto 1.7 K/mm3 (0.1-0.6); Monocytes Percent Auto 9.6 % (2.6-8.5); Neutrophils Absolute Auto 10.6 K/mm3 (1.3-6.7); Neutrophils Percent Auto 60.3 % (45.5-73.1); Platelet Count Result 304 k/mm3 (150-375); Red Blood Count 3.66 M/mm3 (4.2-5.4); White Blood Count 17.6 K/mm3 (4.5-10.0)
[2021-11-17] VITALS (11 sets, daily range): BP systolic 105–125; BP diastolic 47–62; PULSE 81–99; RESP 14–18; TEMP 36.1–37.2; O2SAT 96–100
[2021-11-17 00:54] LABS: Alanine Aminotransferase 43 U/L (4-35); Albumin Level 4.8 g/dL (3.5-5.1); Alkaline Phosphatase 102 U/L (38-126); Anion Gap 13 mmol/L (8-16); Aspartate Amino Transferase 30 U/L (14-36); Bilirubin,Total 0.3 mg/dL (0.2-1.3); Blood Urea Nitrogen 81 mg/dL (7-17); Carbon Dioxide 11 mmol/L (22-30); Chloride 114 mmol/L (98-107); Estimated Glomerular Filt Rate 15; Glucose 99 mg/dL (65-110); Potassium 5.5 mmol/L (3.4-5.0); Sodium 138 mmol/L (137-145)
[2021-11-17 01:01] LABS: NT Pro B Type Natriuretic Pept 241 pg/mL (5-100); Troponin I < 0.012 ng/mL (0.000-0.034)
[2021-11-17 01:04] LABS: Appearance Urine Clear (Clear); Bilirubin Urine Negative (Negative); Color Urine Yellow (Yellow); Glucose Urine UA Negative (Negative); Ketones Urine Negative (Negative); Leukocyte Esterase Ur 2+ LEU/UL (Negative); Nitrate Urine Negative (Negative); Protein Urine Trace mg/dL (Negative); Specific Grav Ur 1.025 (1.001-1.035); Urobilinogen Urine 0.2 mg/dL (<2.0)
[2021-11-17 01:05] LABS: Add Urine Microscopic? YES; Blood Urine Trace (Negative)
--- NOTE | 2021-11-17 01:22 | PM.IMHP ---
H&P: HPI History of Present Illness Date/Time: 11/17/21 01:22 Chief Complaint: Abnormal blood work Narrative: This is a 76-year-old female with past medical history significant for atrial fibrillation, rate controlled anticoagulated, gastroesophageal reflux disease, chronic kidney disease. Patient presented to the emergency room after having blood work done in the outpatient setting through his primary care physician's office she was called and told that her potassium was elevated and her kidney function was abnormal and in that he have an infection in the urine as well. Patient presented to the emergency room for evaluation. In emergency room lab work revealed a creatinine of 3, a potassium 5.8, a white blood cell count of 17,000 8 urinalysis was significant for more than 75 white blood cells per power field. Patient denies any fevers, any rigors, any chills, no pain or burning with urination, no nausea, no vomiting ,no diarrhea, no palpitations ,no chest pain ,no shortness of breath, no PND ,no orthopnea. Decision has been made to admit the patient for further evaluation, management and treatment. Review of Systems Review of Systems: Abnormal blood work. Constitutional: Constitutional: Denies chills, Denies fatigue, Denies fever(s), Denies malaise, Denies night sweats and Denies weakness Eyes: Eyes: Denies change in vision ENT: Denies dysphagia, Denies nasal congestion, Denies nasal discharge, Denies nasal obstruction and Denies odynophagia Cardiovascular: Cardiovascular: Denies chest pain, Denies pedal edema, Denies irregular heart rhythm, Denies leg edema, Denies radiating jaw, neck or arm pain, Denies palpitations, Denies dyspnea and Denies dyspnea on exertion Respiratory: Respiratory: Denies cough and Denies dyspnea Gastrointestinal: Gastrointestinal: Denies abdominal pain, Denies dyspepsia, Denies heartburn, Denies diarrhea, Denies nausea and Denies vomiting Genitourinary: Genitourinary: Denies dysuria and Denies flank pain Musculoskeletal: Musculoskeletal: Denies back pain, Denies arthralgias, Denies joint swelling and Denies muscle weakness Integumentary/Breasts: Skin/Breast: Denies rash Neurologic: Denies focal weakness and Denies Sensory deficit (Neuro) Psychiatric: Psychiatric: Reports no additional psychiatric complaints and Reports as per HPI Endocrine: Endocrine: Denies cold intolerance, Denies flushing, Denies heat intolerance, Denies polyphagia, Denies polydipsia and Denies palpitations Hematologic/Lymphatic: Hematologic/Lymphatic: Reports no additional hematologic/lymphatic complaints and Reports as per HPI Allergic/Immunologic: Allergic/Immunologic: Reports no additional allergic/immunologic complaints and Reports as per HPI PMFSH Past Medical History Medical History Abdominal aortic aneurysm 3 cm distal abdominal aortic aneurysm Atrial fibrillation Paroxysmal Chronic kidney disease, stage [address] COPD with asthma PFTs February 2018 consistent with COPD/asthma overlap with good bronchodilator response Depression Diverticulitis With perforation status post exploratory laparotomy with colostomy DVT (deep venous thrombosis) Right peroneal october 2019 H/O: lung cancer She had left upper lobectomy but no chemo or radiation. Hypertension Hypertensive kidney disease with CKD stage III Hypokalemia Lumbar foraminal stenosis L2-L3 neural foraminal stenosis on CT scan January 2020 Pure hyperglyceridemia Yeast UTI Surgical History Surgical History Chronic kidney disease, stage 3 (moderate) H/O exploratory laparotomy Due to severe diverticulitis of the colon with perforation H/O total colectomy Subtotal colectomy december 2019 in [facility] due to sigmoid stricture and perforated cecum History of colonoscopy Performed by Dr. Sprague 10/09/2019 demonstrated diverticulitis with
[2021-11-17 01:40] LABS: Bacteria Urine Trace /hpf; Mucus Urine Rare /lpf; Squamous Epithelial Cell Urine Few /hpf (Few); WBC Clumps Urine Present /HPF; WBC Urine >75 /hpf
[2021-11-17 02:08] LABS: Lactic Acid Reflex 1.1 mmol/L (0.7-2.1)
[2021-11-17 02:31] LABS: SARS-CoV-2 RNA PCR Negative
--- NOTE | 2021-11-17 03:27 | ADMGEN ---
This patient, Tiffany Dempsey, was admitted to IMU Room 206-01 at 0330. Patient/family oriented to hospital policies and general routines including ID bracelet, bed and alarms, visiting hours, pain management, procedures, bathroom and other care routines, personal items, smoking policy, room service/diet, and visiting hours. Information on how to activate the Rapid Response Team has been discussed. Patient/Family are encouraged to report perceived risks to care and to ask questions if they do not understand what they are told or what they should do.
--- NOTE | 2021-11-17 05:50 | PCDIET ---
0542 Medications received from pharmacy.
[2021-11-17] MEDS: SODIUM CHLORIDE 0.9% IV 1,000 ML 75 ML IV CONT ×2 (05:52→19:29)
[2021-11-17] MEDS: PANTOPRAZOLE 40 MG TABLET PO (08:24)
[2021-11-17] MEDS: METOPROLOL SUCCINATE EXT REL 50 MG TABCR 100 MG PO (08:24)
[2021-11-17] MEDS: APIXABAN 5 MG TABLET PO ×2 (08:25→17:43)
[2021-11-17 09:52] LABS: Hematocrit 34.9 % (37.0-47.0); Hemoglobin 10.7 g/dL (12.0-15.0); Mean Corpuscular HGB Conc 30.7 g/dl (32-36); Mean Corpuscular Hemoglobin 30.7 pg (26-34); Mean Corpuscular Volume 100.3 fl (80-100); Mean Platelet Volume 11.1 fl (7.4-10.4); Platelet Count Result 278 k/mm3 (150-375); Red Blood Count 3.48 M/mm3 (4.2-5.4); White Blood Count 11.3 K/mm3 (4.5-10.0)
[2021-11-17 10:08] LABS: Albumin Level 4.3 g/dL (3.5-5.1); Anion Gap 12 mmol/L (8-16); Blood Urea Nitrogen 80 mg/dL (7-17); Calcium 8.6 mg/dL (8.4-10.2); Carbon Dioxide 12 mmol/L (22-30); Chloride 114 mmol/L (98-107); Estimated CRCL calculation 13 ml/min; Estimated Glomerular Filt Rate 16; Glucose 116 mg/dL (65-110); Magnesium 1.7 mg/dL (1.6-2.3); Phosphorus 5.9 mg/dL (2.5-4.5); Sodium 138 mmol/L (137-145)
--- NOTE | 2021-11-17 12:46 | PM.CNNEP ---
Assessment and Plan Assessment and plan (1) JOSIAS (acute kidney injury): Code(s): N17.9 - Acute kidney failure, unspecified Status: Acute Assessment and Plan: possibly due to volume depletion and infection (UTI) renal ultrasound c/w with CKD without acute pathology urine electrolytes are pre-renal agree with trial of IVF follow trend of repeat labs and UOP (2) Chronic kidney disease, stage IV (severe): Code(s): N18.4 - Chronic kidney disease, stage 4 (severe) Status: Acute Assessment and Plan: baseline creatinine runs 2.0 - 2.4mg/dl since earlier this year on discharge from [facility] in [place], her creatinine was 2.56mg/dl presumably due to HTN, vascular disease, recurrent UTIs, age-related change however, positive SPEP/UPEP noted - has seen Dr. Duron already for evaluation (possible MGUS) will check serum/urine immunofixation and skeletal survey (3) Hyperkalemia: Code(s): E87.5 - Hyperkalemia Status: Acute Assessment and Plan: due to JOSIAS(?) has had issues with this in the past as well follow trend (4) Acute UTI: Code(s): N39.0 - Urinary tract infection, site not specified Status: Acute Assessment and Plan: as evidenced by admission UA follow-up on cultures continue antibiotic therapy (5) Metabolic acidosis: Code(s): E87.2 - Acidosis Status: Acute Assessment and Plan: due to JOSIAS/ARF lactic acid noted change IVFs to bicarb gtt to compensate follow trend Will continue to follow. History of Present Illness Reason for Consult Consult date: 11/18/21 Reason for consult: acute renal failure (on chronic kidney disease) Chief Complaint Chief complaint: JOSIAS,Hyperkalemia,UTI,Leukocytosis,Paroxysmal A Fib History of Present Illness Narrative: The patient is a very pleasant 76-year-old female with past medical history as outlined below who presented to [facility] Emergency room yesterday evening at the best of for primary care physician for further evaluation of abnormal labs. The patient had routine blood work done early yesterday afternoon which demonstrated worsening renal dysfunction in conjunction with mild hyperkalemia. Given these laboratory abnormalities she was directed to the emergency room for further evaluation by her primary care physician. Workup and evaluation emergency room demonstrated the patient to be hemodynamically stable and confirmed the laboratory abnormalities as stated above. Her urinalysis was highly suggestive of a urinary tract infection and her CBC showed an elevated white blood cell count as well. She gave no other symptoms with regard to fevers, chills, dysuria, urinary incontinence, nausea, vomiting, syncope, palpitations, chest pain, or shortness of breath. She does report a history of recurrent urinary tract infections and her history is somewhat complicated by the fact that just a month ago, she was hospitalized at [facility] for severe hyperkalemia with a potassium of nine requiring urgent hemodialysis for one treatment. This episode of a KI on her CKD in association with hyperkalemia was thought to be induced by colchicine and subsequent volume depletion from severe diarrhea. Given her complex medical history, the aforementioned laboratory abnormalities, and evidence of urine tract infection, appropriate cultures were obtained, she was started IV antibiotic therapy, and started on IV fluids with subsequent admission to the hospital for further evaluation and therapy. Renal consultation was requested due to her acute kidney injury on chronic kidney disease in association with mild hyperkalemia. The patient is well known to me as a take care of her outpatient needs for chronic kidney disease. I met the patient several months ago for evaluation of her chronic kidney disease but subsequent testing in terms of further evaluation of her ch
[2021-11-17 13:49] LABS: Sodium Urine Random 11 meq/L
--- NOTE | 2021-11-17 15:49 | PC.NURSE ---
This patient, Tiffany Dempsey, was transferred to [facility] on 11/17/21 at 1549. Personal belongings sent with patient. Report given to MERRITT Velazco. Appropriate documentation sent with patient.
--- NOTE | 2021-11-17 16:30 | PM.IMPN ---
Progress Note: A&P Assessment and Plan (1) Acute hyperkalemia: Code(s): E87.5 - Hyperkalemia Status: Acute Assessment and Plan: No EKG changes Will give Kayexalate. Continue to monitor 11/17/2021 interval history: patient is 76-year-old female with history of chronic kidney disease was seen by primary care labs were drawn and patient was found to potassium of 5.8 the patient was asked to come to emergency depart, patient had no clinical symptoms and there were no changes on EKG, patient was given Kayexalate which did improve her potassium, patient creatinine was also elevated to 3 patient is being gently hydrated, patient had a kidney ultrasound it showed, Bilateral renal cortical thinning, atrophy and no hydronephrosis. patient remains clinically stable patient be seen by cushion builder and further recommendation to follow. (2) JOSIAS (acute kidney injury): Code(s): N17.9 - Acute kidney failure, unspecified Status: Acute Assessment and Plan: Unclear etiology Repeat BMP in the morning (3) Acute UTI: Code(s): N39.0 - Urinary tract infection, site not specified Status: Acute Assessment and Plan: Started on Rocephin (4) Leukocytosis: Qualifiers: Leukocytosis type: unspecified Qualified Code(s): D72.829 - Elevated white blood cell count, unspecified Code(s): D72.829 - Elevated white blood cell count, unspecified Status: Acute Assessment and Plan: Likely secondary to urinary tract infection Continue to trend (5) Chronic kidney disease, stage 3 unspecified: Qualifiers: Chronic kidney disease stage 3 subtype: unspecified whether 3a or 3b Qualified Code(s): N18.30 - Chronic kidney disease, stage 3 unspecified Code(s): N18.30 - Chronic kidney disease, stage 3 unspecified Status: Acute Assessment and Plan: Continue to monitor Daily intake and output (6) COPD with asthma: Code(s): J44.9 - Chronic obstructive pulmonary disease, unspecified Status: Acute Assessment and Plan: Not actively wheezing Continue to monitor (7) Colostomy in place: Code(s): Z93.3 - Colostomy status Status: Acute Assessment and Plan: Colostomy care (8) Atrial fibrillation: Qualifiers: Atrial fibrillation type: paroxysmal Qualified Code(s): I48.0 - Paroxysmal atrial fibrillation Code(s): I48.91 - Unspecified atrial fibrillation Status: Chronic Assessment and Plan: Rate controlled and anticoagulated. Subjective Date/time seen: 11/17/21 16:30 Chief Complaint: Abnormal blood work Narrative: This is a 76-year-old female with past medical history significant for atrial fibrillation, rate controlled anticoagulated, gastroesophageal reflux disease, chronic kidney disease. Patient presented to the emergency room after having blood work done in the outpatient setting through his primary care physician's office she was called and told that her potassium was elevated and her kidney function was abnormal and in that he have an infection in the urine as well. Patient presented to the emergency room for evaluation. In emergency room lab work revealed a creatinine of 3, a potassium 5.8, a white blood cell count of 17,000 8 urinalysis was significant for more than 75 white blood cells per power field. Patient denies any fevers, any rigors, any chills, no pain or burning with urination, no nausea, no vomiting ,no diarrhea, no palpitations ,no chest pain ,no shortness of breath, no PND ,no orthopnea. Decision has been made to admit the patient for further evaluation, management and treatment. 11/17/2021 interval history: patient is 76-year-old female with history of chronic kidney disease was seen by primary care labs were drawn and patient was found to potassium of 5.8 the patient was asked to come to emergency depart, patient had no clinical symptoms and there were no changes on EKG,
[2021-11-18] MEDS: SODIUM BICARBONATE 8.4% 75 MEQ in SODIUM CHLORIDE 0.45% 1,000 ML 50 MEQ IV CONT (02:42)
[2021-11-18 05:53] LABS: Hemoglobin 9.3 g/dL (12.0-15.0); Mean Corpuscular HGB Conc 32.1 g/dl (32-36); Mean Corpuscular Hemoglobin 31.1 pg (26-34); Platelet Count Result 222 k/mm3 (150-375); Red Blood Count 2.99 M/mm3 (4.2-5.4); White Blood Count 10.4 K/mm3 (4.5-10.0)
[2021-11-18 06:00] VITALS: BP 108/44; PULSE 83; RESP 16; TEMP 36.2; O2SAT 100
[2021-11-18 06:00] LABS: Creatine Kinase 22 U/L (30-135)
[2021-11-18 06:06] LABS: Albumin Level 3.6 g/dL (3.5-5.1); Anion Gap 11 mmol/L (8-16); Blood Urea Nitrogen 69 mg/dL (7-17); Calcium 7.9 mg/dL (8.4-10.2); Carbon Dioxide 12 mmol/L (22-30); Chloride 119 mmol/L (98-107); Estimated CRCL calculation 14 ml/min; Estimated Glomerular Filt Rate 19; Glucose 95 mg/dL (65-110); Phosphorus 4.7 mg/dL (2.5-4.5); Potassium 4.9 mmol/L (3.4-5.0); Sodium 142 mmol/L (137-145)
[2021-11-18 08:00] VITALS: PULSE 83; RESP 16; O2SAT 96
[2021-11-18] MEDS: METOPROLOL SUCCINATE EXT REL 50 MG TABCR 100 MG PO (08:20)
[2021-11-18] MEDS: PANTOPRAZOLE 40 MG TABLET PO (08:20)
[2021-11-18] MEDS: APIXABAN 5 MG TABLET PO ×2 (08:20→17:15)
[2021-11-18 08:36] VITALS: O2SAT 96
--- NOTE | 2021-11-18 10:35 | P.PNNP_ITS ---
Progress Note: A&P Assessment and Plan (1) JOSIAS (acute kidney injury): Code(s): N17.9 - Acute kidney failure, unspecified Status: Acute Assessment and Plan: * The patient has acute kidney injury. * renal ultrasound c/w with CKD without acute pathology * urine electrolytes are pre-renal * Most likely due to volume depletion * She is getting some IV fluids. * Her creatinine is a little bit better. (2) Chronic kidney disease, stage IV (severe): Code(s): N18.4 - Chronic kidney disease, stage 4 (severe) Status: Acute Assessment and Plan: * baseline creatinine runs 2.0 - 2.4mg/dl since earlier this year * on discharge from [facility] in [place], her creatinine was 2.56mg/dl * presumably due to HTN, vascular disease, recurrent UTIs, age-related change * however, positive SPEP/UPEP noted - has seen Dr. Duron already for evaluation (possible MGUS) * will check serum/urine immunofixation and skeletal survey (3) Hyperkalemia: Code(s): E87.5 - Hyperkalemia Status: Acute Assessment and Plan: * Resolved (4) Acute UTI: Code(s): N39.0 - Urinary tract infection, site not specified Status: Acute Assessment and Plan: * as evidenced by admission UA * cultures show Klebsiella pneumonia In the urine. * Will start Cipro (5) Metabolic acidosis: Code(s): E87.2 - Acidosis Status: Acute Assessment and Plan: * due to JOSIAS/ARF * anion gap is at its baseline. Lactic acid is normal now. * continue giving bicarb. Adjust the fluids. Will continue to follow. Subjective Date/time seen: 11/18/21 10:35 Interval history: I am seeing for acute kidney injury on top of chronic kidney disease and metabolic acidosis. Patient is feeling better today. No chest pain or shortness of breath. Review of Systems Cardiovascular: Cardiovascular: Reports no additional cardiovascular complaints Respiratory: Respiratory: Reports no additional respiratory complaints Gastrointestinal: Gastrointestinal: Reports no additional gastrointestinal complaints Genitourinary: Genitourinary: Reports no additional female genitourinary complaints Exam Narrative: WDWN in NAD skin no rash head ncat lungs clear cor reg no rub abd BS+ nontender and soft ext no edema. Objective Data Vital Signs Vital Signs: Vital Signs - 24 hr 11/17/21 12:00 11/17/21 15:50 11/17/21 19:00 Temperature 36.6 C 37.2 C 36.1 C L Pulse Rate 81 81 84 Respiratory Rate 16 18 16 Blood Pressure 108/47 L 106/57 L 106/48 L Pulse Oximetry 100 100 100 11/18/21 06:00 11/18/21 08:36 Temperature 36.2 C L Pulse Rate 83 Respiratory Rate 16 Blood Pressure 108/44 L Pulse Oximetry 100 96 Intake/Output Intake/Output: Intake & Output 11/15/21 11/16/21 11/17/21 11/18/21 23:59 23:59 23:59 23:59 Intake Total 2480 990 Output Total 200 1000 Balance 2280 -10 Meds/Results Medications: Active Medications Generic Name Dose Route Start Last Admin Trade Name Freq PRN Reason Stop Dose Admin Apixaban 5 mg 11/17/21 09:00 11/18/21 08:20 Apixaban 5 Mg Tablet PO 5 mg
--- NOTE | 2021-11-18 10:35 | PM.PNNEP ---
Progress Note: A&P Assessment and Plan (1) JOSIAS (acute kidney injury): Code(s): N17.9 - Acute kidney failure, unspecified Status: Acute Assessment and Plan: The patient has acute kidney injury. renal ultrasound c/w with CKD without acute pathology urine electrolytes are pre-renal Most likely due to volume depletion She is getting some IV fluids. Her creatinine is a little bit better. (2) Chronic kidney disease, stage IV (severe): Code(s): N18.4 - Chronic kidney disease, stage 4 (severe) Status: Acute Assessment and Plan: baseline creatinine runs 2.0 - 2.4mg/dl since earlier this year on discharge from [facility] in [place], her creatinine was 2.56mg/dl presumably due to HTN, vascular disease, recurrent UTIs, age-related change however, positive SPEP/UPEP noted - has seen Dr. Duron already for evaluation (possible MGUS) will check serum/urine immunofixation and skeletal survey (3) Hyperkalemia: Code(s): E87.5 - Hyperkalemia Status: Acute Assessment and Plan: Resolved (4) Acute UTI: Code(s): N39.0 - Urinary tract infection, site not specified Status: Acute Assessment and Plan: as evidenced by admission UA cultures show Klebsiella pneumonia In the urine. Will start Cipro (5) Metabolic acidosis: Code(s): E87.2 - Acidosis Status: Acute Assessment and Plan: due to JOSIAS/ARF anion gap is at its baseline. Lactic acid is normal now. continue giving bicarb. Adjust the fluids. Will continue to follow. Subjective Date/time seen: 11/18/21 10:35 Interval history: I am seeing for acute kidney injury on top of chronic kidney disease and metabolic acidosis. Patient is feeling better today. No chest pain or shortness of breath. Review of Systems Cardiovascular: Cardiovascular: Reports no additional cardiovascular complaints Respiratory: Respiratory: Reports no additional respiratory complaints Gastrointestinal: Gastrointestinal: Reports no additional gastrointestinal complaints Genitourinary: Genitourinary: Reports no additional female genitourinary complaints Exam Narrative: WDWN in NAD skin no rash head ncat lungs clear cor reg no rub abd BS+ nontender and soft ext no edema. Objective Data Vital Signs Vital Signs: Vital Signs - 24 hr 11/17/21 12:00 11/17/21 15:50 11/17/21 19:00 Temperature 36.6 C 37.2 C 36.1 C L Pulse Rate 81 81 84 Respiratory Rate 16 18 16 Blood Pressure 108/47 L 106/57 L 106/48 L Pulse Oximetry 100 100 100 11/18/21 06:00 11/18/21 08:36 Temperature 36.2 C L Pulse Rate 83 Respiratory Rate 16 Blood Pressure 108/44 L Pulse Oximetry 100 96 Intake/Output Intake/Output: Intake & Output 11/15/21 11/16/21 11/17/21 11/18/21 23:59 23:59 23:59 23:59 Intake Total 2480 990 Output Total 200 1000 Balance 2280 -10 Meds/Results Medications: Active Medications Generic Name Dose Route Start Last Admin Trade Name Freq PRN Reason Stop Dose Admin Apixaban 5 mg 11/17/21 09:00 11/18/21 08:20 Apixaban 5 Mg Tablet PO 5 mg BID GLADIS Administration Sodium Bicarbonate 75 meq/ 1,075 mls @ 50 mls/hr 11/18/21 01:05 11/18/21 02:42 Sodium Chloride IV CONT 50 mls/hr .[id number] GLADIS Administration Metoprolol Succinate 100 mg 11/17/21 09:00 11/18/21 08:20 Metoprolol Succinate Ext Rel 50 Mg Tabcr PO 100 mg DAILY GLADIS Administration Pantoprazole Sodium 40 mg 11/17/21 09:00 11/18/21 08:20 Pantoprazole 40 Mg Tablet PO 40 mg QAM GLADIS Administration Radiology Results: ITS Impressions Chest X-Ray 11/17/21 07:13 IMPRESSION: 1. No acute cardiopulmonary abnormality. Renal Ultrasound 11/17/21 11:22 IMPRESSION: 1. Bilateral renal cortical thinning, atrophy. 2. No hydronephrosis. Skeletal Survey 11/18/21 10:18 IMPRESSION: 1. No specific evidence of multiple m
[2021-11-18] MEDS: SODIUM BICARBONATE 8.4% 100 MEQ in WATER, STERILE FOR INJECTION 1,000 ML 50 MEQ IV CONT (11:40)
[2021-11-18] MEDS: CEFEPIME 1 GM in DEXTROSE 5% IN WATER 50 ML IVPB (11:40)
[2021-11-18 13:48] VITALS: BP 104/50; PULSE 80; RESP 16; TEMP 36.1; O2SAT 100
--- NOTE | 2021-11-18 15:58 | PM.IMPN ---
Progress Note: A&P Assessment and Plan (1) Acute hyperkalemia: Code(s): E87.5 - Hyperkalemia Status: Acute Assessment and Plan: No EKG changes Will give Kayexalate. Continue to monitor 11/17/2021 interval history: patient is 76-year-old female with history of chronic kidney disease was seen by primary care labs were drawn and patient was found to potassium of 5.8 the patient was asked to come to emergency depart, patient had no clinical symptoms and there were no changes on EKG, patient was given Kayexalate which did improve her potassium, patient creatinine was also elevated to 3 patient is being gently hydrated, patient had a kidney ultrasound it showed, Bilateral renal cortical thinning, atrophy and no hydronephrosis. patient remains clinically stable patient be seen by entry level manufacturing engineer and further recommendation to follow. 11/18/2021 interval history: patient is 76-year-old female with history of chronic kidney disease was seen by primary care labs were drawn and patient was found to potassium of 5.8 the patient was asked to come to emergency depart, patient had no clinical symptoms and there were no changes on EKG, patient was given Kayexalate which did improve her potassium, patient creatinine was also elevated to 3, seen by Nephrology and suspect most likely secondary to dehydration, patient is being gently hydrated, patient potassium and creatinine is a trending down, patient had a kidney ultrasound it showed, Bilateral renal cortical thinning, atrophy and no hydronephrosis. patient remains clinically stable patient is seen by entry level manufacturing engineer and further recommendation to follow. (2) JOSIAS (acute kidney injury): Code(s): N17.9 - Acute kidney failure, unspecified Status: Acute Assessment and Plan: Unclear etiology Repeat BMP in the morning (3) Acute UTI: Code(s): N39.0 - Urinary tract infection, site not specified Status: Acute Assessment and Plan: Started on Rocephin (4) Leukocytosis: Qualifiers: Leukocytosis type: unspecified Qualified Code(s): D72.829 - Elevated white blood cell count, unspecified Code(s): D72.829 - Elevated white blood cell count, unspecified Status: Acute Assessment and Plan: Likely secondary to urinary tract infection Continue to trend (5) Chronic kidney disease, stage 3 unspecified: Qualifiers: Chronic kidney disease stage 3 subtype: unspecified whether 3a or 3b Qualified Code(s): N18.30 - Chronic kidney disease, stage 3 unspecified Code(s): N18.30 - Chronic kidney disease, stage 3 unspecified Status: Acute Assessment and Plan: Continue to monitor Daily intake and output (6) COPD with asthma: Code(s): J44.9 - Chronic obstructive pulmonary disease, unspecified Status: Acute Assessment and Plan: Not actively wheezing Continue to monitor (7) Colostomy in place: Code(s): Z93.3 - Colostomy status Status: Acute Assessment and Plan: Colostomy care (8) Atrial fibrillation: Qualifiers: Atrial fibrillation type: paroxysmal Qualified Code(s): I48.0 - Paroxysmal atrial fibrillation Code(s): I48.91 - Unspecified atrial fibrillation Status: Chronic Assessment and Plan: Rate controlled and anticoagulated. Subjective Date/time seen: 11/18/21 15:58 11/17/2021 interval history: patient is 76-year-old female with history of chronic kidney disease was seen by primary care labs were drawn and patient was found to potassium of 5.8 the patient was asked to come to emergency depart, patient had no clinical symptoms and there were no changes on EKG, patient was given Kayexalate which did improve her potassium, patient creatinine was also elevated to 3 patient is being gently hydrated, patient had a kidney ultrasound it showed, Bilateral renal cortical thinning, atrophy and no hydronephrosis. patient remains clinically sta
[2021-11-18 22:00] VITALS: BP 105/53; PULSE 81; RESP 18; TEMP 36.7; O2SAT 100
[2021-11-19 06:00] VITALS: BP 111/48; PULSE 80; RESP 18; TEMP 36.9; O2SAT 100
[2021-11-19 06:39] LABS: Hematocrit 26.1 % (37.0-47.0); Hemoglobin 8.4 g/dL (12.0-15.0); Mean Corpuscular HGB Conc 32.2 g/dl (32-36); Mean Corpuscular Hemoglobin 31.3 pg (26-34); Mean Corpuscular Volume 97.4 fl (80-100); Mean Platelet Volume 11.5 fl (7.4-10.4); Platelet Count Result 208 k/mm3 (150-375); Red Blood Count 2.68 M/mm3 (4.2-5.4); Red Cell Distribution Width 14.2 % (11.5-14.5); White Blood Count 9.5 K/mm3 (4.5-10.0)
[2021-11-19 06:46] LABS: Albumin Level 3.4 g/dL (3.5-5.1); Anion Gap 10 mmol/L (8-16); Blood Urea Nitrogen 61 mg/dL (7-17); Calcium 7.6 mg/dL (8.4-10.2); Carbon Dioxide 16 mmol/L (22-30); Chloride 114 mmol/L (98-107); Estimated CRCL calculation 18 ml/min; Estimated Glomerular Filt Rate 22; Glucose 80 mg/dL (65-110); Phosphorus 4.2 mg/dL (2.5-4.5); Potassium 4.2 mmol/L (3.4-5.0); Sodium 140 mmol/L (137-145)
[2021-11-19] MEDS: SODIUM BICARBONATE 8.4% 100 MEQ in WATER, STERILE FOR INJECTION 1,000 ML 50 MEQ IV CONT (08:18)
[2021-11-19 08:22] VITALS: PULSE 80
[2021-11-19] MEDS: METOPROLOL SUCCINATE EXT REL 50 MG TABCR 100 MG PO (08:22)
[2021-11-19] MEDS: APIXABAN 5 MG TABLET PO ×2 (08:22→18:02)
[2021-11-19] MEDS: CEFEPIME 1 GM in DEXTROSE 5% IN WATER 50 ML IVPB (08:22)
[2021-11-19] MEDS: PANTOPRAZOLE 40 MG TABLET PO (08:22)
--- NOTE | 2021-11-19 10:22 | P.PNNP_ITS ---
Progress Note: A&P Assessment and Plan (1) JOSIAS (acute kidney injury): Code(s): N17.9 - Acute kidney failure, unspecified Status: Acute Assessment and Plan: * The patient has acute kidney injury. * renal ultrasound c/w with CKD without acute pathology * urine electrolytes are pre-renal * Most likely due to volume depletion * She is getting some IV fluids. * Her creatinine is now down to 2.2. This is her former baseline. (2) Chronic kidney disease, stage IV (severe): Code(s): N18.4 - Chronic kidney disease, stage 4 (severe) Status: Acute Assessment and Plan: * baseline creatinine runs 2.0 - 2.4mg/dl since earlier this year * on discharge from [facility] in [place], her creatinine was 2.56mg/dl * presumably due to HTN, vascular disease, recurrent UTIs, age-related change * however, positive SPEP/UPEP noted - has seen Dr. Duron already for evaluation (possible MGUS) * will check serum/urine immunofixation and skeletal survey (3) Hyperkalemia: Code(s): E87.5 - Hyperkalemia Status: Acute Assessment and Plan: * Resolved (4) Acute UTI: Code(s): N39.0 - Urinary tract infection, site not specified Status: Acute Assessment and Plan: * as evidenced by admission UA * cultures show Klebsiella pneumonia In the urine. * Will start Cipro (5) Metabolic acidosis: Code(s): E87.2 - Acidosis Status: Acute Assessment and Plan: * due to JOSIAS/ARF * CO2 is improved to 16. * continue giving bicarb for 1 more day Subjective Date/time seen: 11/19/21 10:22 Interval history: I am seeing for acute kidney injury on top of chronic kidney disease and metabolic acidosis. Patient is feeling okay. No chest pain or shortness of breath. Exam Narrative: WDWN in NAD skin no rash head ncat lungs clear bilaterally cor reg no rub abd BS+ nontender and soft ext no edema or cyanosis. Objective Data Vital Signs Vital Signs: Vital Signs - 24 hr 11/18/21 13:48 11/18/21 22:00 11/19/21 06:00 Temperature 36.1 C L 36.7 C 36.9 C Pulse Rate 80 81 80 Respiratory Rate 16 18 18 Blood Pressure 104/50 L 105/53 L 111/48 L Pulse Oximetry 100 100 100 11/19/21 08:22 Temperature Pulse Rate 80 Respiratory Rate Blood Pressure Pulse Oximetry Intake/Output Intake/Output: Intake & Output 11/16/21 11/17/21 11/18/21 11/19/21 23:59 23:59 23:59 23:59 Intake Total 2480 1790 3565 Output Total 200 2675 450 Balance 2280 -885 3115 Meds/Results Medications: Active Medications Generic Name Dose Route Start Last Admin Trade Name Freq PRN Reason Stop Dose Admin Apixaban 5 mg 11/17/21 09:00 11/19/21 08:22 Apixaban 5 Mg Tablet PO 5 mg BID GLADIS Administration Sodium Bicarbonate 100 meq/ 1,100 mls @ 50 mls/hr 11/18/21 10:45 11/19/21 08:18 Sterile Water IV CONT 50 mls/hr .Q22H GLADIS Administration Cefepime HCl 1 gm/ Dextrose 50 mls @ 100 mls/hr 11/18/21 10:45 11/19/21 08:22 IVPB 100 mls/hr QAM GLADIS Administration Metoprolol Succinate 100 mg 11/17/21 09:00 11/19/21 08:22 Metoprolol Succinate E
--- NOTE | 2021-11-19 10:22 | PM.PNNEP ---
Progress Note: A&P Assessment and Plan (1) JOSIAS (acute kidney injury): Code(s): N17.9 - Acute kidney failure, unspecified Status: Acute Assessment and Plan: The patient has acute kidney injury. renal ultrasound c/w with CKD without acute pathology urine electrolytes are pre-renal Most likely due to volume depletion She is getting some IV fluids. Her creatinine is now down to 2.2. This is her former baseline. (2) Chronic kidney disease, stage IV (severe): Code(s): N18.4 - Chronic kidney disease, stage 4 (severe) Status: Acute Assessment and Plan: baseline creatinine runs 2.0 - 2.4mg/dl since earlier this year on discharge from [facility] in [place], her creatinine was 2.56mg/dl presumably due to HTN, vascular disease, recurrent UTIs, age-related change however, positive SPEP/UPEP noted - has seen Dr. Duron already for evaluation (possible MGUS) will check serum/urine immunofixation and skeletal survey (3) Hyperkalemia: Code(s): E87.5 - Hyperkalemia Status: Acute Assessment and Plan: Resolved (4) Acute UTI: Code(s): N39.0 - Urinary tract infection, site not specified Status: Acute Assessment and Plan: as evidenced by admission UA cultures show Klebsiella pneumonia In the urine. Will start Cipro (5) Metabolic acidosis: Code(s): E87.2 - Acidosis Status: Acute Assessment and Plan: due to JOSIAS/ARF CO2 is improved to 16. continue giving bicarb for 1 more day Subjective Date/time seen: 11/19/21 10:22 Interval history: I am seeing for acute kidney injury on top of chronic kidney disease and metabolic acidosis. Patient is feeling okay. No chest pain or shortness of breath. Exam Narrative: WDWN in NAD skin no rash head ncat lungs clear bilaterally cor reg no rub abd BS+ nontender and soft ext no edema or cyanosis. Objective Data Vital Signs Vital Signs: Vital Signs - 24 hr 11/18/21 13:48 11/18/21 22:00 11/19/21 06:00 Temperature 36.1 C L 36.7 C 36.9 C Pulse Rate 80 81 80 Respiratory Rate 16 18 18 Blood Pressure 104/50 L 105/53 L 111/48 L Pulse Oximetry 100 100 100 11/19/21 08:22 Temperature Pulse Rate 80 Respiratory Rate Blood Pressure Pulse Oximetry Intake/Output Intake/Output: Intake & Output 11/16/21 11/17/21 11/18/21 11/19/21 23:59 23:59 23:59 23:59 Intake Total 2480 1790 3565 Output Total 200 2675 450 Balance 2280 -885 3115 Meds/Results Medications: Active Medications Generic Name Dose Route Start Last Admin Trade Name Roel PRN Reason Stop Dose Admin Apixaban 5 mg 11/17/21 09:00 11/19/21 08:22 Apixaban 5 Mg Tablet PO 5 mg BID GLADIS Administration Sodium Bicarbonate 100 meq/ 1,100 mls @ 50 mls/hr 11/18/21 10:45 11/19/21 08:18 Sterile Water IV CONT 50 mls/hr .Q22H GLADIS Administration Cefepime HCl 1 gm/ Dextrose 50 mls @ 100 mls/hr 11/18/21 10:45 11/19/21 08:22 IVPB 100 mls/hr QAM GLADIS Administration Metoprolol Succinate 100 mg 11/17/21 09:00 11/19/21 08:22 Metoprolol Succinate Ext Rel 50 Mg Tabcr PO 100 mg DAILY GLADIS Administration Pantoprazole Sodium 40 mg 11/17/21 09:00 11/19/21 08:22 Pantoprazole 40 Mg Tablet PO 40 mg QAM GLADIS Administration Radiology Results: ITS Impressions Chest X-Ray 11/17/21 07:13 IMPRESSION: 1. No acute cardiopulmonary abnormality. Renal Ultrasound 11/17/21 11:22 IMPRESSION: 1. Bilateral renal cortical thinning, atrophy. 2. No hydronephrosis. Skeletal Survey 11/18/21 10:18 IMPRESSION: 1. No specific evidence of multiple myeloma. Labs Labs: Laboratory Results - last 24 hr 11/19/21 11/19/21 05:47 05:47 WBC 9.5 RBC 2.68 L Hgb 8.4 L Hct 26.1 L MCV 97.4 MCH 31.3 MCHC 32.2 RDW 14.2 Plt Count 208 MPV 11.5 H Sodium 140 Potassium 4.2 Chloride 1
--- NOTE | 2021-11-19 13:51 | PM.IMPN ---
Progress Note: A&P Assessment and Plan (1) Acute hyperkalemia: Code(s): E87.5 - Hyperkalemia Status: Acute Assessment and Plan: No EKG changes Will give Kayexalate. Continue to monitor 11/17/2021 interval history: patient is 76-year-old female with history of chronic kidney disease was seen by primary care labs were drawn and patient was found to potassium of 5.8 the patient was asked to come to emergency depart, patient had no clinical symptoms and there were no changes on EKG, patient was given Kayexalate which did improve her potassium, patient creatinine was also elevated to 3 patient is being gently hydrated, patient had a kidney ultrasound it showed, Bilateral renal cortical thinning, atrophy and no hydronephrosis. patient remains clinically stable patient be seen by tape machine tailer and further recommendation to follow. 11/18/2021 interval history: patient is 76-year-old female with history of chronic kidney disease was seen by primary care labs were drawn and patient was found to potassium of 5.8 the patient was asked to come to emergency depart, patient had no clinical symptoms and there were no changes on EKG, patient was given Kayexalate which did improve her potassium, patient creatinine was also elevated to 3, seen by Nephrology and suspect most likely secondary to dehydration, patient is being gently hydrated, patient potassium and creatinine is a trending down, patient had a kidney ultrasound it showed, Bilateral renal cortical thinning, atrophy and no hydronephrosis. patient remains clinically stable patient is seen by tape machine tailer and further recommendation to follow. 11/19/2021 interval history: patient is 76-year-old female with history of chronic kidney disease was seen by primary care labs were drawn and patient was found to potassium of 5.8 and metabolic acidosis 2/2 JOSIAS, the patient was asked to come to emergency depart, patient had no clinical symptoms and there were no changes on EKG, patient was given Kayexalate which did improve her potassium, patient creatinine was also elevated to 3, seen by Nephrology and suspect most likely secondary to dehydration, patient is being gently hydrated with bicarb drip, patient potassium and creatinine is a trending down, her CO2 is rising, patient had a kidney ultrasound it showed, Bilateral renal cortical thinning, atrophy and no hydronephrosis. patient remains clinically stable patient is seen by tape machine tailer and further recommendation to follow. (2) JOSIAS (acute kidney injury): Code(s): N17.9 - Acute kidney failure, unspecified Status: Acute Assessment and Plan: Unclear etiology Repeat BMP in the morning (3) Acute UTI: Code(s): N39.0 - Urinary tract infection, site not specified Status: Acute Assessment and Plan: Started on Rocephin (4) Leukocytosis: Qualifiers: Leukocytosis type: unspecified Qualified Code(s): D72.829 - Elevated white blood cell count, unspecified Code(s): D72.829 - Elevated white blood cell count, unspecified Status: Acute Assessment and Plan: Likely secondary to urinary tract infection Continue to trend (5) Chronic kidney disease, stage 3 unspecified: Qualifiers: Chronic kidney disease stage 3 subtype: unspecified whether 3a or 3b Qualified Code(s): N18.30 - Chronic kidney disease, stage 3 unspecified Code(s): N18.30 - Chronic kidney disease, stage 3 unspecified Status: Acute Assessment and Plan: Continue to monitor Daily intake and output (6) COPD with asthma: Code(s): J44.9 - Chronic obstructive pulmonary disease, unspecified Status: Acute Assessment and Plan: Not actively wheezing Continue to monitor (7) Colostomy in place: Code(s): Z93.3 - Colostomy status Status: Acute Assessment and Plan: Colostomy care (8) Atrial fibrillation: Qualifiers: Atrial fibril
[2021-11-19 14:00] VITALS: BP 101/50; PULSE 80; RESP 18; TEMP 36.2; O2SAT 100
[2021-11-19 20:12] VITALS: O2SAT 94
[2021-11-19 22:00] VITALS: BP 118/59; PULSE 93; RESP 16; TEMP 37; O2SAT 100
[2021-11-20 06:00] VITALS: BP 111/51; PULSE 81; RESP 16; TEMP 36.7; O2SAT 100
[2021-11-20 06:22] LABS: Hematocrit 26.5 % (37.0-47.0); Hemoglobin 8.7 g/dL (12.0-15.0); Mean Corpuscular HGB Conc 32.8 g/dl (32-36); Mean Corpuscular Hemoglobin 31.4 pg (26-34); Mean Corpuscular Volume 95.7 fl (80-100); Platelet Count Result 196 k/mm3 (150-375); Red Blood Count 2.77 M/mm3 (4.2-5.4); Red Cell Distribution Width 13.8 % (11.5-14.5); White Blood Count 10.3 K/mm3 (4.5-10.0)
[2021-11-20] MEDS: SODIUM BICARBONATE 8.4% 100 MEQ in WATER, STERILE FOR INJECTION 1,000 ML 50 MEQ IV CONT (06:27)
[2021-11-20 06:43] LABS: Albumin Level 3.3 g/dL (3.5-5.1); Anion Gap 8 mmol/L (8-16); Blood Urea Nitrogen 50 mg/dL (7-17); Calcium 7.3 mg/dL (8.4-10.2); Carbon Dioxide 21 mmol/L (22-30); Chloride 108 mmol/L (98-107); Estimated CRCL calculation 20 ml/min; Estimated Glomerular Filt Rate 24; Glucose 86 mg/dL (65-110); Phosphorus 3.4 mg/dL (2.5-4.5); Sodium 137 mmol/L (137-145)
[2021-11-20] MEDS: APIXABAN 5 MG TABLET PO ×2 (09:19→17:15)
[2021-11-20] MEDS: METOPROLOL SUCCINATE EXT REL 50 MG TABCR 100 MG PO (09:19)
[2021-11-20] MEDS: PANTOPRAZOLE 40 MG TABLET PO (09:19)
[2021-11-20] MEDS: CEFEPIME 1 GM in DEXTROSE 5% IN WATER 50 ML IVPB (09:19)
--- NOTE | 2021-11-20 10:10 | PM.IMPN ---
Progress Note: A&P Assessment and Plan (1) Acute hyperkalemia: Code(s): E87.5 - Hyperkalemia Status: Acute Assessment and Plan: No EKG changes Will give Kayexalate. Continue to monitor 11/17/2021 interval history: patient is 76-year-old female with history of chronic kidney disease was seen by primary care labs were drawn and patient was found to potassium of 5.8 the patient was asked to come to emergency depart, patient had no clinical symptoms and there were no changes on EKG, patient was given Kayexalate which did improve her potassium, patient creatinine was also elevated to 3 patient is being gently hydrated, patient had a kidney ultrasound it showed, Bilateral renal cortical thinning, atrophy and no hydronephrosis. patient remains clinically stable patient be seen by professional bass fisherman and further recommendation to follow. 11/18/2021 interval history: patient is 76-year-old female with history of chronic kidney disease was seen by primary care labs were drawn and patient was found to potassium of 5.8 the patient was asked to come to emergency depart, patient had no clinical symptoms and there were no changes on EKG, patient was given Kayexalate which did improve her potassium, patient creatinine was also elevated to 3, seen by Nephrology and suspect most likely secondary to dehydration, patient is being gently hydrated, patient potassium and creatinine is a trending down, patient had a kidney ultrasound it showed, Bilateral renal cortical thinning, atrophy and no hydronephrosis. patient remains clinically stable patient is seen by professional bass fisherman and further recommendation to follow. 11/19/2021 interval history: patient is 76-year-old female with history of chronic kidney disease was seen by primary care labs were drawn and patient was found to potassium of 5.8 and metabolic acidosis 2/2 JOSIAS, the patient was asked to come to emergency depart, patient had no clinical symptoms and there were no changes on EKG, patient was given Kayexalate which did improve her potassium, patient creatinine was also elevated to 3, seen by Nephrology and suspect most likely secondary to dehydration, patient is being gently hydrated with bicarb drip, patient potassium and creatinine is a trending down, her CO2 is rising, patient had a kidney ultrasound it showed, Bilateral renal cortical thinning, atrophy and no hydronephrosis. patient remains clinically stable patient is seen by professional bass fisherman and further recommendation to follow. 11/20/2021 interval history: patient is 76-year-old female with history of chronic kidney disease was seen by primary care labs were drawn and patient was found to potassium of 5.8 and metabolic acidosis 2/2 JOSIAS, the patient was asked to come to emergency depart, patient had no clinical symptoms and there were no changes on EKG, patient was given Kayexalate which did improve her potassium, patient creatinine was also elevated to 3, seen by Nephrology and suspect most likely secondary to dehydration, patient is being gently hydrated with bicarb drip, patient potassium and creatinine is a trending down, her CO2 is rising and its 21 compared to when she arrived it was 9 , patient had a kidney ultrasound it showed, Bilateral renal cortical thinning, atrophy and no hydronephrosis. patient remains clinically stable d/w patient professional bass fisherman patient may be discharged today, and further recommendation to follow. (2) JOSIAS (acute kidney injury): Code(s): N17.9 - Acute kidney failure, unspecified Status: Acute Assessment and Plan: Unclear etiology Repeat BMP in the morning (3) Acute UTI: Code(s): N39.0 - Urinary tract infection, site not specified Status: Acute Assessment and Plan: Started on Rocephin (4) Leukocytosis: Qualifiers: Leukocytosis type: unspecified Qualified Code(s): D72.829 - Elevated white blood cell count, unspecified Code(s): D72.829 - Elevated white b
--- NOTE | 2021-11-20 10:41 | P.DS_ITS ---
DS: Summary Time Spent with Patient Time attestation: Total time spent providing and/or coordinating discharge ser vices: DS: Data Data Completed and Pending Labs on day of discharge: Labs from last 24 hours 11/20/21 11/20/21 06:04 06:04 WBC 10.3 H RBC 2.77 L Hgb 8.7 L Hct 26.5 L MCV 95.7 MCH 31.4 MCHC 32.8 RDW 13.8 Plt Count 196 MPV 11.0 H Sodium 137 Potassium 4.0 Chloride 108 H Carbon Dioxide 21 L Anion Gap 8 BUN 50 H D Creatinine 2.00 H Estim Creat Clear Calc 20 Estimated GFR 24 L Glucose 86 Calcium 7.3 L Phosphorus 3.4 Albumin 3.3 L Discharge Plan Discharge Attending physician on discharge: Suraj Moreno Consulting providers: Marbin Tamayo Discharging Clinician: Suraj Moreno Patient Disposition: Home, Self-Care Activity: as tolerated Diet: heart healthy and low sodium Discharge Instructions: Patient to follow up with Dr Thomas and her primary care provider as soon as possible, patient is instructed is any symptoms redevelop to go to nearest ER. Patient Instructions: Antibiotic Form, Apixaban (By mouth) Stand Alone Forms: General Discharge Information Follow-up/Referrals: Raheel Patton MD [Primary Care Provider] - Marbin Tamayo MD [Physician] - Discharge Medications: Continued Eliquis 5 mg tablet 5 mg PO BID Qty: 60 RF: 0 metoprolol succinate 50 mg tablet extended release 24 hr 100 mg PO DAILY RF: 0 pantoprazole 40 mg tablet,delayed release (DR/EC) 40 mg PO QAM Qty: 90 RF: 1 Date of admission: 11/17/21 09:26 Primary Care Provider: Raheel Patton Admitting Provider: Zenobia Willams V. Attending physician on admission: Zenobia Willams V. Condition: Serious
[2021-11-20 13:26] VITALS: O2SAT 96
[2021-11-20 14:30] VITALS: BP 96/63; PULSE 80; RESP 20; TEMP 36.8; O2SAT 100
[2021-11-20 14:50] VITALS: BP 116/50
[2021-11-20 21:44] VITALS: BP 107/63; PULSE 78; RESP 16; TEMP 36.5; O2SAT 100
[2021-11-21 05:35] VITALS: BP 100/44; PULSE 79; RESP 16; TEMP 36.4; O2SAT 100
[2021-11-21 05:54] LABS: Hematocrit 26.4 % (37.0-47.0); Hemoglobin 8.5 g/dL (12.0-15.0); Mean Corpuscular HGB Conc 32.2 g/dl (32-36); Mean Corpuscular Hemoglobin 31.3 pg (26-34); Mean Corpuscular Volume 97.1 fl (80-100); Mean Platelet Volume 10.7 fl (7.4-10.4); Platelet Count Result 189 k/mm3 (150-375); Red Blood Count 2.72 M/mm3 (4.2-5.4); Red Cell Distribution Width 13.9 % (11.5-14.5); White Blood Count 11.4 K/mm3 (4.5-10.0)
[2021-11-21 06:07] LABS: Albumin Level 3.3 g/dL (3.5-5.1); Anion Gap 6 mmol/L (8-16); Blood Urea Nitrogen 47 mg/dL (7-17); Calcium 7.5 mg/dL (8.4-10.2); Carbon Dioxide 23 mmol/L (22-30); Chloride 111 mmol/L (98-107); Estimated CRCL calculation 21 ml/min; Estimated Glomerular Filt Rate 26; Glucose 81 mg/dL (65-110); Phosphorus 3.6 mg/dL (2.5-4.5); Potassium 4.4 mmol/L (3.4-5.0); Sodium 140 mmol/L (137-145)
[2021-11-21 08:05] VITALS: PULSE 76
[2021-11-21] MEDS: METOPROLOL SUCCINATE EXT REL 50 MG TABCR 100 MG PO (08:05)
[2021-11-21] MEDS: CEFEPIME 1 GM in DEXTROSE 5% IN WATER 50 ML IVPB (08:05)
[2021-11-21] MEDS: APIXABAN 5 MG TABLET PO ×2 (08:05→16:39)
[2021-11-21] MEDS: PANTOPRAZOLE 40 MG TABLET PO (08:05)
--- NOTE | 2021-11-21 09:09 | P.PNNP_ITS ---
Progress Note: A&P Assessment and Plan (1) JOSIAS (acute kidney injury): Code(s): N17.9 - Acute kidney failure, unspecified Status: Acute Assessment and Plan: * The patient has acute kidney injury. * renal ultrasound c/w with CKD without acute pathology * urine electrolytes are pre-renal * Most likely due to volume depletion This has resolved. She is at her baseline. (2) Chronic kidney disease, stage IV (severe): Code(s): N18.4 - Chronic kidney disease, stage 4 (severe) Status: Acute Assessment and Plan: * baseline creatinine runs 2.0 - 2.4mg/dl since earlier this year * on discharge from [facility] in [place], her creatinine was 2.56mg/dl * presumably due to HTN, vascular disease, recurrent UTIs, age-related change * however, positive SPEP/UPEP noted - has seen Dr. Duron already for evaluation (possible MGUS) * will check serum/urine immunofixation and skeletal survey (3) Hyperkalemia: Code(s): E87.5 - Hyperkalemia Status: Acute Assessment and Plan: * Resolved (4) Acute UTI: Code(s): N39.0 - Urinary tract infection, site not specified Status: Acute Assessment and Plan: * as evidenced by admission UA * cultures show Klebsiella pneumonia In the urine. * Cipro was not given because of her abdominal aortic aneurysm. * Now on cefepime. * She says she sees Dr. Sarkar because of her frequent bladder infection. He gave her a daily antibiotic and that was working for a couple of months but then for some reason it was stopped. She cannot remember why. We will try to figure out what that antibiotic was. (5) Metabolic acidosis: Code(s): E87.2 - Acidosis Status: Acute Assessment and Plan: * due to JOSIAS/ARF * CO2 is improved to 23 * Off the bicarb drip Subjective Date/time seen: 11/21/21 09:09 Interval history: I am seeing for acute kidney injury on top of chronic kidney disease and metabolic acidosis. Patient is feeling okay. Getting a new IV. No chest pain or shortness of breath. Exam Narrative: WDWN in NAD skin no rash or subQ nodules head ncat lungs clear bilaterally cor reg no rub or gallop abd BS+ nontender and soft ext no edema or cyanosis. Objective Data Vital Signs Vital Signs: Vital Signs - 24 hr 11/20/21 13:26 11/20/21 14:30 11/20/21 14:50 Temperature 36.8 C Pulse Rate 80 Respiratory Rate 20 Blood Pressure 96/63 L 116/50 L Pulse Oximetry 96 100 11/20/21 21:44 11/21/21 05:35 11/21/21 08:05 Temperature 36.5 C 36.4 C L Pulse Rate 78 79 76 Respiratory Rate 16 16 Blood Pressure 107/63 100/44 L Pulse Oximetry 100 100 Intake/Output Intake/Output: Intake & Output 11/18/21 11/19/21 11/20/21 11/21/21 23:59 23:59 23:59 23:59 Intake Total 1790 3975 2750 500 Output Total 2675 1950 2180 900 Balance -885 2025 570 -400 Meds/Results Medications: Active Medications Generic Name Dose Route Start Last Admin Trade Name Freq PRN Reason Stop Dose Admin Apixaban 5 mg 11/17/21 09:00 11/21/21 08:05 Apixaban 5 Mg Tablet PO 5 mg BID GLADIS Administration Cefepime HCl 1 gm/ Dextrose 50 mls @ 100 mls/
--- NOTE | 2021-11-21 09:09 | PM.PNNEP ---
Progress Note: A&P Assessment and Plan (1) JOSIAS (acute kidney injury): Code(s): N17.9 - Acute kidney failure, unspecified Status: Acute Assessment and Plan: The patient has acute kidney injury. renal ultrasound c/w with CKD without acute pathology urine electrolytes are pre-renal Most likely due to volume depletion This has resolved. She is at her baseline. (2) Chronic kidney disease, stage IV (severe): Code(s): N18.4 - Chronic kidney disease, stage 4 (severe) Status: Acute Assessment and Plan: baseline creatinine runs 2.0 - 2.4mg/dl since earlier this year on discharge from [facility] in [place], her creatinine was 2.56mg/dl presumably due to HTN, vascular disease, recurrent UTIs, age-related change however, positive SPEP/UPEP noted - has seen Dr. Duron already for evaluation (possible MGUS) will check serum/urine immunofixation and skeletal survey (3) Hyperkalemia: Code(s): E87.5 - Hyperkalemia Status: Acute Assessment and Plan: Resolved (4) Acute UTI: Code(s): N39.0 - Urinary tract infection, site not specified Status: Acute Assessment and Plan: as evidenced by admission UA cultures show Klebsiella pneumonia In the urine. Cipro was not given because of her abdominal aortic aneurysm. Now on cefepime. She says she sees Dr. Sarkar because of her frequent bladder infection. He gave her a daily antibiotic and that was working for a couple of months but then for some reason it was stopped. She cannot remember why. We will try to figure out what that antibiotic was. (5) Metabolic acidosis: Code(s): E87.2 - Acidosis Status: Acute Assessment and Plan: due to JOSIAS/ARF CO2 is improved to 23 Off the bicarb drip Subjective Date/time seen: 11/21/21 09:09 Interval history: I am seeing for acute kidney injury on top of chronic kidney disease and metabolic acidosis. Patient is feeling okay. Getting a new IV. No chest pain or shortness of breath. Exam Narrative: WDWN in NAD skin no rash or subQ nodules head ncat lungs clear bilaterally cor reg no rub or gallop abd BS+ nontender and soft ext no edema or cyanosis. Objective Data Vital Signs Vital Signs: Vital Signs - 24 hr 11/20/21 13:26 11/20/21 14:30 11/20/21 14:50 Temperature 36.8 C Pulse Rate 80 Respiratory Rate 20 Blood Pressure 96/63 L 116/50 L Pulse Oximetry 96 100 11/20/21 21:44 11/21/21 05:35 11/21/21 08:05 Temperature 36.5 C 36.4 C L Pulse Rate 78 79 76 Respiratory Rate 16 16 Blood Pressure 107/63 100/44 L Pulse Oximetry 100 100 Intake/Output Intake/Output: Intake & Output 11/18/21 11/19/21 11/20/21 11/21/21 23:59 23:59 23:59 23:59 Intake Total 1790 3975 2750 500 Output Total 2675 1950 2180 900 Balance -885 2025 570 -400 Meds/Results Medications: Active Medications Generic Name Dose Route Start Last Admin Trade Name Freq PRN Reason Stop Dose Admin Apixaban 5 mg 11/17/21 09:00 11/21/21 08:05 Apixaban 5 Mg Tablet PO 5 mg BID GLADIS Administration Cefepime HCl 1 gm/ Dextrose 50 mls @ 100 mls/hr 11/18/21 10:45 11/21/21 08:05 IVPB 100 mls/hr QAM GLADIS Administration Metoprolol Succinate 100 mg 11/17/21 09:00 11/21/21 08:05 Metoprolol Succinate Ext Rel 50 Mg Tabcr PO 100 mg DAILY GLADIS Administration Pantoprazole Sodium 40 mg 11/17/21 09:00 11/21/21 08:05 Pantoprazole 40 Mg Tablet PO 40 mg QAM GLADIS Administration Radiology Results: ITS Impressions Chest X-Ray 11/17/21 07:13 IMPRESSION: 1. No acute cardiopulmonary abnormality. Renal Ultrasound 11/17/21 11:22 IMPRESSION: 1. Bilateral renal cortical thinning, atrophy. 2. No hydronephrosis. Skeletal Survey 11/18/21 10:18 IMPRESSION: 1. No specific evidence of multiple myeloma. Labs Labs: Laboratory Results - last 24 hr
--- NOTE | 2021-11-21 09:55 | PC.NURSE ---
Spoke with Dr. Moreno regarding patient's IV. After 3 attempts by this nurse and the data warehouse developer we were unable to gain peripheral IV access. Dr. Moreno stated that since patient has already received most of her daily dose of IV antibiotics and will be getting a midline to go home, we can wait till tomorrow for IV access.
--- NOTE | 2021-11-21 10:21 | PM.IMPN ---
Progress Note: A&P Assessment and Plan (1) Acute hyperkalemia: Code(s): E87.5 - Hyperkalemia Status: Acute Assessment and Plan: No EKG changes Will give Kayexalate. Continue to monitor 11/17/2021 interval history: patient is 76-year-old female with history of chronic kidney disease was seen by primary care labs were drawn and patient was found to potassium of 5.8 the patient was asked to come to emergency depart, patient had no clinical symptoms and there were no changes on EKG, patient was given Kayexalate which did improve her potassium, patient creatinine was also elevated to 3 patient is being gently hydrated, patient had a kidney ultrasound it showed, Bilateral renal cortical thinning, atrophy and no hydronephrosis. patient remains clinically stable patient be seen by straddle carrier operator and further recommendation to follow. 11/18/2021 interval history: patient is 76-year-old female with history of chronic kidney disease was seen by primary care labs were drawn and patient was found to potassium of 5.8 the patient was asked to come to emergency depart, patient had no clinical symptoms and there were no changes on EKG, patient was given Kayexalate which did improve her potassium, patient creatinine was also elevated to 3, seen by Nephrology and suspect most likely secondary to dehydration, patient is being gently hydrated, patient potassium and creatinine is a trending down, patient had a kidney ultrasound it showed, Bilateral renal cortical thinning, atrophy and no hydronephrosis. patient remains clinically stable patient is seen by straddle carrier operator and further recommendation to follow. 11/19/2021 interval history: patient is 76-year-old female with history of chronic kidney disease was seen by primary care labs were drawn and patient was found to potassium of 5.8 and metabolic acidosis 2/2 JOSIAS, the patient was asked to come to emergency depart, patient had no clinical symptoms and there were no changes on EKG, patient was given Kayexalate which did improve her potassium, patient creatinine was also elevated to 3, seen by Nephrology and suspect most likely secondary to dehydration, patient is being gently hydrated with bicarb drip, patient potassium and creatinine is a trending down, her CO2 is rising, patient had a kidney ultrasound it showed, Bilateral renal cortical thinning, atrophy and no hydronephrosis. patient remains clinically stable patient is seen by straddle carrier operator and further recommendation to follow. 11/20/2021 interval history: patient is 76-year-old female with history of chronic kidney disease was seen by primary care labs were drawn and patient was found to potassium of 5.8 and metabolic acidosis 2/2 JOSIAS, the patient was asked to come to emergency depart, patient had no clinical symptoms and there were no changes on EKG, patient was given Kayexalate which did improve her potassium, patient creatinine was also elevated to 3, seen by Nephrology and suspect most likely secondary to dehydration, patient is being gently hydrated with bicarb drip, patient potassium and creatinine is a trending down, her CO2 is rising and its 21 compared to when she arrived it was 9 , patient had a kidney ultrasound it showed, Bilateral renal cortical thinning, atrophy and no hydronephrosis. patient remains clinically stable d/w patient straddle carrier operator patient may be discharged today, and further recommendation to follow. 11/21/2021 interval history: patient is 76-year-old female with history of chronic kidney disease was seen by primary care labs were drawn and patient was found to potassium of 5.8 and metabolic acidosis 2/2 JOSIAS, the patient was asked to come to emergency depart, patient had no clinical symptoms and there were no changes on EKG, patient was given Kayexalate which did improve her potassium, patient creatinine was also elevated to 3, seen by Nephrology and suspect most likely secondary to dehydration, patient is being gently hyd
[2021-11-21 14:00] VITALS: BP 98/52; PULSE 78; RESP 16; TEMP 37.2; O2SAT 100
[2021-11-21 21:50] VITALS: BP 118/49; PULSE 75; RESP 16; TEMP 36.3; O2SAT 100
[2021-11-22 05:41] VITALS: BP 121/57; PULSE 83; RESP 16; TEMP 36.3; O2SAT 100
[2021-11-22 07:35] LABS: Albumin Level 3.8 g/dL (3.5-5.1); Anion Gap 8 mmol/L (8-16); Blood Urea Nitrogen 41 mg/dL (7-17); Calcium 7.8 mg/dL (8.4-10.2); Carbon Dioxide 20 mmol/L (22-30); Chloride 111 mmol/L (98-107); Estimated CRCL calculation 22 ml/min; Estimated Glomerular Filt Rate 27; Glucose 90 mg/dL (65-110); Phosphorus 3.3 mg/dL (2.5-4.5); Potassium 4.8 mmol/L (3.4-5.0); Sodium 139 mmol/L (137-145)
[2021-11-22 07:45] LABS: Hematocrit 28.5 % (37.0-47.0); Hemoglobin 8.9 g/dL (12.0-15.0); Mean Corpuscular HGB Conc 31.2 g/dl (32-36); Mean Corpuscular Hemoglobin 30.5 pg (26-34); Mean Corpuscular Volume 97.6 fl (80-100); Platelet Count Result 205 k/mm3 (150-375); Red Blood Count 2.92 M/mm3 (4.2-5.4); Red Cell Distribution Width 13.8 % (11.5-14.5); White Blood Count 13.7 K/mm3 (4.5-10.0)
[2021-11-22] MEDS: CEFEPIME 1 GM in DEXTROSE 5% IN WATER 50 ML IVPB (08:38)
[2021-11-22 08:39] VITALS: PULSE 98
[2021-11-22] MEDS: METOPROLOL SUCCINATE EXT REL 50 MG TABCR 100 MG PO (08:39)
[2021-11-22] MEDS: PANTOPRAZOLE 40 MG TABLET PO (08:39)
[2021-11-22] MEDS: APIXABAN 5 MG TABLET PO (08:39)
--- NOTE | 2021-11-22 12:11 | PM.DS ---
DS: Admitting Diagnosis Discharge Date 11/22/2021 Admitting Diagnosis Abnormal blood work DS: Discharge Diagnosis Discharge Diagnosis (1) Acute hyperkalemia: Code(s): E87.5 - Hyperkalemia Status: Acute Assessment and Plan: No EKG changes Will give Kayexalate. Continue to monitor 11/17/2021 interval history: patient is 76-year-old female with history of chronic kidney disease was seen by primary care labs were drawn and patient was found to potassium of 5.8 the patient was asked to come to emergency depart, patient had no clinical symptoms and there were no changes on EKG, patient was given Kayexalate which did improve her potassium, patient creatinine was also elevated to 3 patient is being gently hydrated, patient had a kidney ultrasound it showed, Bilateral renal cortical thinning, atrophy and no hydronephrosis. patient remains clinically stable patient be seen by trichologist and further recommendation to follow. 11/18/2021 interval history: patient is 76-year-old female with history of chronic kidney disease was seen by primary care labs were drawn and patient was found to potassium of 5.8 the patient was asked to come to emergency depart, patient had no clinical symptoms and there were no changes on EKG, patient was given Kayexalate which did improve her potassium, patient creatinine was also elevated to 3, seen by Nephrology and suspect most likely secondary to dehydration, patient is being gently hydrated, patient potassium and creatinine is a trending down, patient had a kidney ultrasound it showed, Bilateral renal cortical thinning, atrophy and no hydronephrosis. patient remains clinically stable patient is seen by trichologist and further recommendation to follow. 11/19/2021 interval history: patient is 76-year-old female with history of chronic kidney disease was seen by primary care labs were drawn and patient was found to potassium of 5.8 and metabolic acidosis 2/2 JOSIAS, the patient was asked to come to emergency depart, patient had no clinical symptoms and there were no changes on EKG, patient was given Kayexalate which did improve her potassium, patient creatinine was also elevated to 3, seen by Nephrology and suspect most likely secondary to dehydration, patient is being gently hydrated with bicarb drip, patient potassium and creatinine is a trending down, her CO2 is rising, patient had a kidney ultrasound it showed, Bilateral renal cortical thinning, atrophy and no hydronephrosis. patient remains clinically stable patient is seen by trichologist and further recommendation to follow. 11/20/2021 interval history: patient is 76-year-old female with history of chronic kidney disease was seen by primary care labs were drawn and patient was found to potassium of 5.8 and metabolic acidosis 2/2 JOSIAS, the patient was asked to come to emergency depart, patient had no clinical symptoms and there were no changes on EKG, patient was given Kayexalate which did improve her potassium, patient creatinine was also elevated to 3, seen by Nephrology and suspect most likely secondary to dehydration, patient is being gently hydrated with bicarb drip, patient potassium and creatinine is a trending down, her CO2 is rising and its 21 compared to when she arrived it was 9 , patient had a kidney ultrasound it showed, Bilateral renal cortical thinning, atrophy and no hydronephrosis. patient remains clinically stable d/w patient trichologist patient may be discharged today, and further recommendation to follow. 11/21/2021 interval history: patient is 76-year-old female with history of chronic kidney disease was seen by primary care labs were drawn and patient was found to potassium of 5.8 and metabolic acidosis 2/2 JOSIAS, the patient was asked to come to emergency depart, patient had no clinical symptoms and there were no changes on EKG, patient was given Kayexalate which did improve her potassium, patient creatinine was also elevated to
== END 2021-11-22 13:22 | disposition home health service (06) | DRG 683 ==
LOC: ANHED 11-17 01:28 → ANHIMU 11-17 09:28 → ANH3MEDSUR 11-17 15:44
PROVIDERS: Internal Medicine Nephrology; Admitting Provider Internal Medicine; Emergency Provider Emergency Medicine; PCP Family Medicine; Visit Provider Family Medicine
DX: N17.9 Acute kidney failure, unspecified (principal); N39.0 Urinary tract infection, site not specified; E87.2 Acidosis; N18.4 Chronic kidney disease, stage 4 (severe); B96.1 Klebsiella pneumoniae [K. pneumoniae] as the cause of diseases classified elsewhere; E87.5 Hyperkalemia; D72.829 Elevated white blood cell count, unspecified; Z20.822 Contact with and (suspected) exposure to COVID-19; J44.9 Chronic obstructive pulmonary disease, unspecified; F32.A Depression, unspecified; I48.0 Paroxysmal atrial fibrillation; I71.4 Abdominal aortic aneurysm, without rupture; I12.9 Hypertensive chronic kidney disease with stage 1 through stage 4 chronic kidney disease, or unspecified chronic kidney disease; K21.9 Gastro-esophageal reflux disease without esophagitis; Z87.891 Personal history of nicotine dependence; Z93.3 Colostomy status; Z90.49 Acquired absence of other specified parts of digestive tract; Z98.41 Cataract extraction status, right eye; Z98.42 Cataract extraction status, left eye; Z96.1 Presence of intraocular lens; Z90.2 Acquired absence of lung [part of]; Z86.718 Personal history of other venous thrombosis and embolism; Z85.118 Personal history of other malignant neoplasm of bronchus and lung; Z79.01 Long term (current) use of anticoagulants
CPT/HCPCS: 36415; 36569; 71045; 76775; 77075; 80053; 80069; 81001; 82550; 83605; 83735; 83880; 84300; 84484; 85025; 85027; 86334; 86335; 87077; 87086; 87186; 93005; 96361; 96365; 96366; 96367; 96375; 99285; A9270; C1751; C9803; G0378; J0692; J0696; J7030; U0003; U0005

== ENCOUNTER 2021-11-29 14:52 | Outpatient (NON) | payer OTHER, SELFPAY ==
[2021-11-29 18:48] LABS: Basophils Absolute Auto 0.1 K/mm3 (0.0-0.1); Basophils Percent Auto 0.4 % (0.2-1.2); Eosinophils Absolute Auto 0.3 K/mm3 (0-0.3); Eosinophils Percent Auto 2.6 % (0-4.4); Hematocrit 30.9 % (37.0-47.0); Hemoglobin 9.4 g/dL (12.0-15.0); Immature Granulocyte Absolute 0.08 K/mm3 (0.00-0.031); Immature Granulocyte Percent A 0.7 % (0-0.5); Lymphocytes Absolute Auto 2.12 K/mm3 (0.9-3.2); Lymphocytes Percent Auto 17.8 % (18.3-44.2); Mean Corpuscular HGB Conc 30.4 g/dl (32-36); Mean Corpuscular Hemoglobin 31.2 pg (26-34); Mean Corpuscular Volume 102.7 fl (80-100); Mean Platelet Volume 11.6 fl (7.4-10.4); Neutrophils Absolute Auto 8.4 K/mm3 (1.3-6.7); Neutrophils Percent Auto 70.5 % (45.5-73.1); Platelet Count Result 192 k/mm3 (150-375); Red Blood Count 3.01 M/mm3 (4.2-5.4); Red Cell Distribution Width 13.3 % (11.5-14.5); White Blood Count 11.9 K/mm3 (4.5-10.0)
[2021-11-29 19:05] LABS: Alanine Aminotransferase 41 U/L (4-35); Albumin Level 4.1 g/dL (3.5-5.1); Alkaline Phosphatase 89 U/L (38-126); Anion Gap 10 mmol/L (8-16); Aspartate Amino Transferase 32 U/L (14-36); Bilirubin,Total 0.1 mg/dL (0.2-1.3); Blood Urea Nitrogen 48 mg/dL (7-17); Calcium 8.5 mg/dL (8.4-10.2); Carbon Dioxide 19 mmol/L (22-30); Chloride 110 mmol/L (98-107); Estimated Glomerular Filt Rate 24; Glucose 109 mg/dL (65-110); Potassium 5.3 mmol/L (3.4-5.0); Sodium 139 mmol/L (137-145)
== END 2021-11-29 14:53 | disposition home or self-care (01) ==
PROVIDERS: PCP Family Medicine; Visit Provider Family Medicine
DX: N18.4 Chronic kidney disease, stage 4 (severe) (principal); D64.9 Anemia, unspecified; I48.0 Paroxysmal atrial fibrillation; N39.0 Urinary tract infection, site not specified; Z45.2 Encounter for adjustment and management of vascular access device; Z79.2 Long term (current) use of antibiotics
CPT/HCPCS: 80053; 85025

== ENCOUNTER 2021-12-06 11:51 | Outpatient (NON) | payer OTHER, SELFPAY ==
[2021-12-06 14:08] LABS: Appearance Urine Clear (Clear); Bilirubin Urine Negative (Negative); Blood Urine Negative (Negative); Color Urine Yellow (Yellow); Glucose Urine UA Negative (Negative); Ketones Urine Negative (Negative); Leukocyte Esterase Ur 1+ LEU/UL (NEGATIVE); Nitrate Urine Negative (Negative); Protein Urine 1+ mg/dL (Negative); Specific Grav Ur 1.025 (1.001-1.035); Urobilinogen Urine 0.2 mg/dL (<2.0); pH Urine 5.5 (5.0-9.0)
[2021-12-06 14:19] LABS: Mucus Urine Rare /lpf; Renal Epithelial Cells Urine Occasional /hpf (None Seen); Squamous Epithelial Cell Urine Few /hpf (Few); WBC Urine 31-50 /hpf (0-3)
[2021-12-06 14:26] LABS: Add Urine Microscopic? YES
== END 2021-12-06 11:52 | disposition home or self-care (01) ==
LOC: HOME HLTH 11:55
PROVIDERS: PCP Family Medicine; Visit Provider Family Medicine
DX: N39.0 Urinary tract infection, site not specified (principal); I48.0 Paroxysmal atrial fibrillation; Z79.2 Long term (current) use of antibiotics; Z45.2 Encounter for adjustment and management of vascular access device
CPT/HCPCS: 81001; 87086; 87147; 87181; 87186

== ENCOUNTER 2021-12-08 11:28 | Outpatient (CLI) | payer OTHER, SELFPAY ==
[2021-12-08 12:30] LABS: Alanine Aminotransferase 32 U/L (4-35); Albumin Level 4.7 g/dL (3.5-5.1); Alkaline Phosphatase 97 U/L (38-126); Anion Gap 11 mmol/L (8-16); Aspartate Amino Transferase 30 U/L (14-36); Bilirubin,Total 0.4 mg/dL (0.2-1.3); Blood Urea Nitrogen 60 mg/dL (7-17); Calcium 9.1 mg/dL (8.4-10.2); Carbon Dioxide 11 mmol/L (22-30); Chloride 114 mmol/L (98-107); Estimated Glomerular Filt Rate 19; Glucose 120 mg/dL (65-110); Potassium 5.9 mmol/L (3.4-5.0); Sodium 136 mmol/L (137-145)
== END 2021-12-08 11:29 | disposition home or self-care (01) ==
PROVIDERS: PCP Family Medicine; Visit Provider Nurse Practitioner Family
DX: N18.4 Chronic kidney disease, stage 4 (severe) (principal); D64.9 Anemia, unspecified
CPT/HCPCS: 36415; 80053

== ENCOUNTER 2021-12-08 17:48 | Observation (INO) | payer OTHER, SELFPAY ==
--- NOTE | ~2021-12-08 | CT_ITS ---
EXAMINATION: CT abdomen pelvis wo con DATE: 12/09/2021 11:26 INDICATION: Frequent urinary tract infections TECHNIQUE: Computed tomography (CT) of the abdomen and pelvis was performed without intravenous contr ast. The dose-length product (DLP) was 541.02 mGy-cm. Automated exposure control and iterative recons truction technique were employed. COMPARISON: 12/27/2019 FINDINGS: The lung bases are clear. The heart size is normal. The gallbladder is surgically absent. T he liver, spleen, pancreas, and adrenal glands are normal. The kidneys are unremarkable. No pathologi lyubov enlarged abdominal or pelvic lymph nodes are identified. There is no free intraperitoneal gas o r evidence of bowel obstruction. There is calcified atherosclerosis of the aorta and many of the othe r arteries. There is soft tissue gas in the right groin area with what appears to be an approximately 1.7 x 1.4 cm hematoma. There are changes of subtotal colectomy with a right lower quadrant ileostomy . There is a small diverticulum of the gastric fundus. There is mild lumbar spondylosis. IMPRESSION: 1. No CT correlate for the patient's symptoms. 2. Apparent small hematoma of the right groin with adjacent soft tissue gas. Correlate for history of attempted catheter insertion. Consider targeted ultrasound to evaluate for pseudoaneurysm. Reviewed, dictated and finalized at location B. IMPRESSION: 1. No CT correlate for the patient's symptoms. 2. Apparent small hematoma of the right groin with adjacent soft tissue gas. Co rrelate for history of attempted catheter insertion. Consider targeted ultrasou nd to evaluate for pseudoaneurysm.
--- NOTE | ~2021-12-08 | US_ITS ---
EXAMINATION: US venous doppler [facility] DATE: 12/09/2021 12:03 INDICATION: Shortness of breath TECHNIQUE: Grayscale ultrasound images without and with compression and Doppler ultrasound images of the bilateral upper extremity veins were obtained. COMPARISON: None. FINDINGS: The right internal jugular vein, subclavian vein, axillary vein, brachial veins, basilic vein, cephal ic vein, radial vein, and ulnar vein are patent. The left internal jugular vein, subclavian vein, axillary vein, brachial veins, basilic vein, cephali c vein, radial vein, and ulnar vein are patent. IMPRESSION: 1. No evidence of deep venous thrombosis. Reviewed, dictated and finalized at location B.
--- NOTE | ~2021-12-08 | XR_ITS ---
EXAMINATION: XR chest 2V DATE: 12/09/2021 12:03 INDICATION: Shortness of breath TECHNIQUE: AP and lateral views of the chest are obtained. COMPARISON: 11/16/2021 FINDINGS: A surgical staple line is noted in the left upper lung zone. The lungs are free of acute op acities. There is no pleural effusion or pneumothorax. The cardiomediastinal silhouette is normal. Th ere are bridging osteophytes at multiple levels in the spine, consistent with diffuse idiopathic skel etal hyperostosis (DISH). Surgical clips in the right upper quadrant are likely from prior cholecyste ctomy. IMPRESSION: 1. No acute cardiopulmonary abnormality. Reviewed, dictated and finalized at location B.
[2021-12-08 18:06] VITALS: BP 140/91; PULSE 99; RESP 14; TEMP 36.5; O2SAT 99
[2021-12-08 20:04] VITALS: BP 154/76; PULSE 83; RESP 13; O2SAT 100
--- NOTE | 2021-12-08 20:15 | ED.FEMALEGU ---
HPI - Female Genitourinary General Chief complaint: Recheck/Abnormal Lab/Rx Stated complaint: UTI- sent by d Time Seen by Provider: 12/08/21 20:14 Source: patient Mode of arrival: ambulatory Limitations: no limitations History of Present Illness HPI Narrative: The patient is a 76 year old medically complex female with a past medical history of paroxysmal A fib and DVT on anticoagulation, HTN, depression, s/p total colectomy w/ ileostomy, chronic UTIs, chronic kidney disease, and anemia of chronic disease presenting to the ER for evaluation of potential UTI and hyperkalemia. Patient was seen for follow-up at a primary care physician's office today and reports that she has been feeling very well since her last admission to the hospital just recently. Patient reports mild back pain and was concerned she may have recurrent urinary tract infection as that is typically her only symptom with UTIs. She denies fever, chills, nausea, vomiting, chest pain, cough or dyspnea. Patient reports she had outpatient lab work done today, and was called by the primary care physician's office this evening and was told to come to the ER for failing kidneys. Patient denies weakness, does report mild hematuria without significant dysuria. She states that she struggles to drink enough fluids during the day and perhaps that is contributing to her abnormal laboratory values. I reviewed the patient's recent admission history for which she was followed by nephrology and the hospitalist service. Per my chart review, patient with a creatinine of 2.5 today which is about near to patient's baseline which is anywhere from 2-2.5, and a potassium that has been uptrending to 5 9. Related Data Home Medications Medication Instructions Recorded Confirmed metoprolol succinate 100 mg PO DAILY 11/17/21 11/17/21 Allergies Allergy/AdvReac Type Severity Reaction Status Date / Time benzonatate AdvReac Severe Cough Verified 12/08/21 10:58 Review of Systems Review of Systems: CONSTITUTIONAL: Denies fever, chills, or sweats. EYES: Denies visual changes, redness, or discharge. ENT: Denies rhinorrhea, congestion, sore throat, or otalgia. CARDIOVASCULAR: Denies chest pain, palpitations, or edema. RESPIRATORY: Denies cough or dyspnea. GASTROINTESTINAL: Denies abdominal pain, nausea, vomiting, or diarrhea. GENITOURINARY: Denies dysuria, reports hematuria SKIN: Denies rash or itching. MUSCULOSKELETAL: Reports mild backache without other joint pain, or myalgia. NEUROLOGIC: Denies headache, numbness, or weakness. [facility] Past Medical History Medical History Abdominal aortic aneurysm 3 cm distal abdominal aortic aneurysm Atrial fibrillation Paroxysmal Chronic kidney disease, stage [address] COPD with asthma PFTs February 2018 consistent with COPD/asthma overlap with good bronchodilator response Depression Diverticulitis With perforation status post exploratory laparotomy with colostomy DVT (deep venous thrombosis) Right peroneal october 2019 H/O: lung cancer She had left upper lobectomy but no chemo or radiation. Hypertension Hypertensive kidney disease with CKD stage III Hypokalemia Lumbar foraminal stenosis L2-L3 neural foraminal stenosis on CT scan January 2020 Pure hyperglyceridemia Yeast UTI Surgical History Surgical History Chronic kidney disease, stage 3 (moderate) H/O exploratory laparotomy Due to severe diverticulitis of the colon with perforation H/O total colectomy Subtotal colectomy december 2019 in [facility] due to sigmoid stricture and perforated cecum History of colonoscopy Performed by Dr. Sprague 10/09/2019 demonstrated diverticulitis without perforation or abscess, colonic spasm History of esophagogastroduodenoscopy (EGD) January 2020 demonstrating gastritis and duodenitis History of tubal ligation Hx of cholecystect
--- NOTE | 2021-12-08 20:18 | ECG_ITS ---
Measurements Intervals [employer] Rate: 77 P: 66 OR: 188 QRS: 44 QRSD: 80 T: 63 QT: 370 QTc: 421 Interpretive Statements SINUS RHYTHM BASELINE ARTIFACT- I, II, III, AVL NORMAL ECG Electronically Signed On 12-09-2021 6:32:45 CDT by Kamari Adair D.O.
[2021-12-08 20:32] VITALS: BP 141/68; PULSE 89; RESP 14; O2SAT 100
[2021-12-08 21:06] VITALS: BP 129/63; PULSE 80; RESP 10; O2SAT 100
--- NOTE | 2021-12-08 21:10 | PC.NURSE ---
UNABLE TO OBTAIN IV ACCESS OR LABS. DR BURKS MADE AWARE AND WILL ATTEMPT ULTRASOUND IV ACCESS
[2021-12-08 21:31] VITALS: BP 127/48; PULSE 80; RESP 11; O2SAT 100
[2021-12-08 21:43] LABS: Appearance Urine Clear (Clear); Bilirubin Urine Negative (Negative); Blood Urine Negative (Negative); Color Urine Yellow (Yellow); Glucose Urine UA Negative (Negative); Ketones Urine Negative (Negative); Leukocyte Esterase Ur Trace LEU/UL (Negative); Nitrate Urine Negative (Negative); Protein Urine Negative (Negative); Specific Grav Ur 1.015 (1.001-1.035); Urobilinogen Urine 0.2 mg/dL (<2.0)
[2021-12-08 21:48] LABS: Bacteria Urine Trace /hpf; Mucus Urine Rare /lpf; RBC Urine 0-2 /hpf (0-2); Squamous Epithelial Cell Urine Occasional /hpf (Few)
[2021-12-08 21:50] LABS: Add Urine Microscopic? YES
[2021-12-08 21:58] LABS: SARS-CoV-2 RNA PCR Negative
--- NOTE | 2021-12-08 22:15 | PC.NURSE ---
PHLEBOTOMY TO BEDSIDE TO DRAW LABS. STILL NO IV. DR BURKS AWARE AND WILL ATTEMPT TO OBTAIN IV ACCESS VIA ULTRASOUND
[2021-12-08 22:31] VITALS: BP 124/55; PULSE 77; RESP 12; O2SAT 100
[2021-12-08 22:35] LABS: Basophils Absolute Auto 0.1 K/mm3 (0.0-0.1); Basophils Percent Auto 0.8 % (0.2-1.2); Eosinophils Absolute Auto 0.2 K/mm3 (0-0.3); Eosinophils Percent Auto 1.9 % (0-4.4); Hematocrit 35.5 % (37.0-47.0); Hemoglobin 10.9 g/dL (12.0-15.0); Immature Granulocyte Absolute 0.11 K/mm3 (0.00-0.031); Lymphocytes Absolute Auto 3.01 K/mm3 (0.9-3.2); Lymphocytes Percent Auto 26.1 % (18.3-44.2); Mean Corpuscular HGB Conc 30.7 g/dl (32-36); Mean Corpuscular Hemoglobin 30.5 pg (26-34); Mean Corpuscular Volume 99.4 fl (80-100); Mean Platelet Volume 10.5 fl (7.4-10.4); Monocytes Absolute Auto 0.9 K/mm3 (0.1-0.6); Monocytes Percent Auto 7.5 % (2.6-8.5); Neutrophils Absolute Auto 7.3 K/mm3 (1.3-6.7); Neutrophils Percent Auto 62.7 % (45.5-73.1); Platelet Count Result 268 k/mm3 (150-375); Red Blood Count 3.57 M/mm3 (4.2-5.4); Red Cell Distribution Width 13.2 % (11.5-14.5); White Blood Count 11.5 K/mm3 (4.5-10.0)
[2021-12-08 22:46] LABS: INR 1.6; Prothrombin Time 18.5 Seconds (11.1-14.7)
[2021-12-08 22:47] LABS: Partial Thromboplastin Time 32.7 SECONDS (22.3-36.8)
[2021-12-08 22:57] LABS: Alanine Aminotransferase 32 U/L (4-35); Albumin Level 4.8 g/dL (3.5-5.1); Alkaline Phosphatase 99 U/L (38-126); Anion Gap 10 mmol/L (8-16); Aspartate Amino Transferase 27 U/L (14-36); Bilirubin,Total 0.2 mg/dL (0.2-1.3); Blood Urea Nitrogen 60 mg/dL (7-17); Calcium 9.1 mg/dL (8.4-10.2); Carbon Dioxide 14 mmol/L (22-30); Chloride 113 mmol/L (98-107); Estimated CRCL calculation 14 ml/min; Estimated Glomerular Filt Rate 18; Glucose 83 mg/dL (65-110); Potassium 5.2 mmol/L (3.4-5.0); Sodium 137 mmol/L (137-145)
[2021-12-08 23:09] LABS: Troponin I < 0.012 ng/mL (0.000-0.034)
[2021-12-09] VITALS (15 sets, daily range): BP systolic 108–158; BP diastolic 49–82; PULSE 82–114; RESP 16–24; TEMP 35.6–36.4; O2SAT 97–100; BMI 24.7
--- NOTE | 2021-12-09 00:14 | PC.NURSE ---
DR BURKS UNABLE TO OBTAIN AN IV DESPITE ULTRASOUND USE. WILL BE PLACING A CENTRAL LINE FOR ACCESS SO MEDS CAN BE GIVEN AND PT CAN BE ADMITTED.
--- NOTE | 2021-12-09 00:30 | PC.NURSE ---
DR BURKS AT BEDSIDE WITH CORWIN LAWSON TO PLACE CENTRAL LINE
--- NOTE | 2021-12-09 01:00 | PC.NURSE ---
DR BURKS UNABLE TO OBTAIN IV ACCESS PERIPHERALLY OR A CENTRAL ACCESS. [facility] NURSING DIGITAL ACCOUNT MANAGER, HOSPITALIST AND EMI MARIE RN MADE AWARE
[2021-12-09] MEDS: SODIUM POLYSTYRENE SULFONONATE 15 GM/60 ML BTL PO (01:10)
--- NOTE | 2021-12-09 02:19 | ADMGEN ---
This patient, Tiffany Dempsey, was admitted to Medical Room 243-. Patient/family oriented to hospital policies and general routines including ID bracelet, bed and alarms, visiting hours, pain management, procedures, bathroom and other care routines, personal items, smoking policy, room service/diet, and visiting hours. Information on how to activate the Rapid Response Team has been discussed. Patient/Family are encouraged to report perceived risks to care and to ask questions if they do not understand what they are told or what they should do.
[2021-12-09 06:12] LABS: Basophils Absolute Auto 0.1 K/mm3 (0.0-0.1); Basophils Percent Auto 0.6 % (0.2-1.2); Eosinophils Absolute Auto 0.2 K/mm3 (0-0.3); Eosinophils Percent Auto 1.2 % (0-4.4); Hematocrit 34.6 % (37.0-47.0); Hemoglobin 11.1 g/dL (12.0-15.0); Immature Granulocyte Absolute 0.14 K/mm3 (0.00-0.031); Immature Granulocyte Percent A 0.9 % (0-0.5); Lymphocytes Absolute Auto 3.11 K/mm3 (0.9-3.2); Mean Corpuscular HGB Conc 32.1 g/dl (32-36); Mean Corpuscular Hemoglobin 30.9 pg (26-34); Mean Corpuscular Volume 96.4 fl (80-100); Mean Platelet Volume 10.4 fl (7.4-10.4); Monocytes Absolute Auto 1.1 K/mm3 (0.1-0.6); Neutrophils Absolute Auto 10.9 K/mm3 (1.3-6.7); Neutrophils Percent Auto 70.3 % (45.5-73.1); Platelet Count Result 274 k/mm3 (150-375); Red Blood Count 3.59 M/mm3 (4.2-5.4); Red Cell Distribution Width 13.2 % (11.5-14.5); White Blood Count 15.5 K/mm3 (4.5-10.0)
[2021-12-09 06:20] LABS: Alanine Aminotransferase 33 U/L (4-35); Albumin Level 4.8 g/dL (3.5-5.1); Alkaline Phosphatase 106 U/L (38-126); Anion Gap 13 mmol/L (8-16); Aspartate Amino Transferase 29 U/L (14-36); Bilirubin,Total 0.3 mg/dL (0.2-1.3); Blood Urea Nitrogen 57 mg/dL (7-17); Calcium 9.1 mg/dL (8.4-10.2); Carbon Dioxide 12 mmol/L (22-30); Chloride 109 mmol/L (98-107); Estimated CRCL calculation 15 ml/min; Estimated Glomerular Filt Rate 20; Glucose 102 mg/dL (65-110); Potassium 4.8 mmol/L (3.4-5.0); Sodium 134 mmol/L (137-145)
--- NOTE | 2021-12-09 07:45 | PM.IMHP ---
H&P: HPI History of Present Illness Date/Time: 12/09/21 07:45 Chief Complaint: Abnormal labs Narrative: Patient is 76 female with quite extensive history AFib, DVT, hypertension depression, colectomy with ileostomy, UTIs, CKD and anemia who presented to the ED for evaluation of hyperkalemia and UTI. Patient stated that she was just recently here and completed IV antibiotics at home. Patient stated that her last dose of IV antibiotics was Monday. Patient stated that she usually knows when she is going to have UTI because her back starts to hurt and she has been having a back ache. She cannot tell me when her back it started however she stated with the events that have happened it seems as the likely cause. Patient stated that her pain is in the lumbar region and radiates across. She also stated that she was told she had blood in her urine however she does not have any hematuria. She does feel like she fully empties and she denies any for urgency or frequency. Patient states that she uses depends especially when she leaves the house however she does not use depends when she is at home. She stated that she has been going out more lately due to extensive doctor visits. She also states that she does not wear depends when she is at home because it push on her ostomy bag. She has stated that she has been having more shortness of breath with activity and when that happens she can feel her heart but it does not feel like heart attack and it just feels like discomfort. She states that she sits down and takes a break and the pain goes away. Patient did state that she had lung cancer and her left apex was removed. She denies any sweats, fevers, chills, abdominal pain, nausea, vomiting, diarrhea, constipation, headache, visual changes, dizziness, lightheadedness. Patient did state that she does feel weak and tired a lot. She also stated that she has a blood clot in her left arm. Patient also stated that she was to see Dr. Sarkar today for frequent UTIs. Will consult urology for evaluation per patient request. Patient is being admitted to the hospital service under observation. Review of Systems Review of Systems: All systems reviewed & are unremarkable except as noted in HPI and below PMFSH Past Medical History Medical History Abdominal aortic aneurysm 3 cm distal abdominal aortic aneurysm Atrial fibrillation Paroxysmal Chronic kidney disease, stage [address] COPD with asthma PFTs February 2018 consistent with COPD/asthma overlap with good bronchodilator response Depression Diverticulitis With perforation status post exploratory laparotomy with colostomy DVT (deep venous thrombosis) Right peroneal october 2019 Frequent UTI H/O: lung cancer She had left upper lobectomy but no chemo or radiation. Hypertension Hypertensive kidney disease with CKD stage III Hypokalemia Lumbar foraminal stenosis L2-L3 neural foraminal stenosis on CT scan January 2020 Lung cancer Pure hyperglyceridemia Yeast UTI Surgical History Surgical History Chronic kidney disease, stage 3 (moderate) H/O exploratory laparotomy Due to severe diverticulitis of the colon with perforation H/O total colectomy Subtotal colectomy december 2019 in [facility] due to sigmoid stricture and perforated cecum History of colonoscopy Performed by Dr. Sprague 10/09/2019 demonstrated diverticulitis without perforation or abscess, colonic spasm History of esophagogastroduodenoscopy (EGD) January 2020 demonstrating gastritis and duodenitis History of tubal ligation Hx of cholecystectomy October 2017 S/P lobectomy of lung Left upper lobe due to lung cancer Status post cataract extraction of both eyes with insertion of intraocular lens Family History Family History Mother Hypertens
[2021-12-09 07:49] LABS: Lactic Acid Reflex 1.1 mmol/L (0.7-2.0)
--- NOTE | 2021-12-09 08:57 | PM.CNNEP ---
Assessment and Plan Additional Plan 1. Tiffany has chronic kidney disease. This is from hypertension and vascular disease. Her baseline creatinine seems to be running between 1.6 and 2.0. 2. The patient has acute kidney injury. Her creatinine is a little higher than it usually runs. This could be progression of chronic disease or it could be an acute on chronic situation. She does have a positive urine culture so we can get this treated. She could have allergic interstitial nephritis but she does not have a rash or fever or eosinophilia. Glomerulonephritis would be unlikely in this situation acutely. Looking back her creatinine has gone from normal to its current level over the past couple of years. Last month she had a serum and urine immunofixation which were abnormal. Will see how hydration does for the creatinine. Consider a renal biopsy later this this admission. 3. Hypertension her blood pressure looks okay. 4. UTI the patient will get treatment with ceftazidime. 5. History of lung cancer. SHERMAN. History of Present Illness Reason for Consult Consult date: 12/09/21 Chief Complaint Chief complaint: JOSIAS, Dehydration, Hyperkalemia History of Present Illness Narrative: Tiffany is a very pleasant 76-year-old lady who has multiple medical problems including chronic kidney disease, COPD, frequent bladder infections, hypertensive, history oflung cancer, hyperlipidemia, 3cm abdominal aortic aneurysm, atrial fibrillation which is paroxysmal. The patient went to her doctor yesterday and had blood work done and her creatinine and potassium were elevated so she was sent to the ER. A couple of days ago the home health nurse jeannette a urine culture which was positive. Other than that the patient is me feeling fine. She has had no pain with urination, no fevers or chills, no chest pain or shortness of breath, no nausea vomiting diarrhea or abdominal pain, no changes in medications, and no nonsteroidal anti-inflammatory agents whether prescription or [id number]. She got to the emergency room when was evaluated her potassium and creatinine were still both elevated. She received some medication for the potassium and received some IV fluids. Her IV stopped working and now she is not getting fluid but they are waiting for and IV to be placed. Review of Systems Constitutional: Constitutional: Reports no additional constitutional complaints Eyes: Eyes: Reports no additional eye complaints ENT: Reports system reviewed and no additional complaints, except as documented Cardiovascular: Cardiovascular: Reports no additional cardiovascular complaints Respiratory: Respiratory: Reports no additional respiratory complaints Gastrointestinal: Gastrointestinal: Reports no additional gastrointestinal complaints Genitourinary: Genitourinary: Reports no additional female genitourinary complaints Musculoskeletal: Musculoskeletal: Reports no additional musculoskeletal complaints Integumentary/Breasts: Skin/Breast: Reports system reviewed and no additional complaints, except as docu Neurologic: Reports system reviewed and no additional complaints, except as documented Psychiatric: Psychiatric: Reports no additional psychiatric complaints Endocrine: Endocrine: Reports no additional endocrine complaints PMFSH Past Medical History Medical History Abdominal aortic aneurysm 3 cm distal abdominal aortic aneurysm Atrial fibrillation Paroxysmal Chronic kidney disease, stage [address] COPD with asthma PFTs February 2018 consistent with COPD/asthma overlap with good bronchodilator response Depression Diverticulitis With perforation status post exploratory laparotomy with colostomy DVT (deep venous thrombosis) Right peroneal october 2019 Frequent UTI H/O: lung cancer She had left upper lobectomy but no chemo or radiation. Hyper
[2021-12-09] MEDS: SODIUM BICARBONATE 8.4% 150 MEQ in WATER, STERILE FOR INJECTION 950 ML 75 MEQ IV CONT (09:42)
[2021-12-09] MEDS: METOPROLOL SUCCINATE EXT REL 100 MG TABCR PO (10:44)
[2021-12-09] MEDS: APIXABAN 5 MG TABLET PO ×2 (10:44→16:21)
[2021-12-09] MEDS: PANTOPRAZOLE 40 MG TABLET PO (10:44)
--- NOTE | 2021-12-09 15:01 | WPDURCON ---
Assessment and Plan Assessment and plan (1) Acute kidney injury: Code(s): N17.9 - Acute kidney failure, unspecified Status: Acute Assessment and Plan: Her creatinine is chronically elevated secondary to CKD, her CT scan shows no obstruction or hydronephrosis to indicate an obstructive stone or urinary retention. (2) Acute UTI: Code(s): N39.0 - Urinary tract infection, site not specified Status: Acute Assessment and Plan: Urine culture on 12/06/21 grew low colony counts of Enterococcus which appear to be colonization of the bladder and not a UTI. Her symptoms correlate as she states she feels good other than some back pain which she does have during infection, but she also suffers from osteo arthritis. Continue IV antibiotics and we will await pending blood and urine cultures and watch her WBC. (3) Chronic UTI: Code(s): N39.0 - Urinary tract infection, site not specified Status: Acute Assessment and Plan: We discussed restarting her prophylaxis Cephalexin 250mg QD once urine cultures are back and she no longer needs IV antibiotics. She will f/u for a cysto in the office with Dr. Sarkar on 02/14/22 at 11:15. No further evaluation needed at this time. Urology Consult Note HPI Date Seen: 12/09/21 Requesting Physician: Esteban Wheeler DO Primary Care Provider: Raheel Patton MD Consult Narrative Narrative: Tiffany Dempsey is a 76 year old female who is a patient of Dr. Du, was admitted to the hospital through the ED for recurrent UTI's and hyperkalemia. She went to her PCP yesterday and had labs done which were noted to show hyperkalemia, therefore was sent to the ED for admission. She was recently treated for a UTI via PICC line and IV antibiotics at home. She was previously on Cephalexin daily by Dr. Sarkar which prevented her from having UTI's, but she was hospitalized at some point in the past year when she states she was taken off of it and she has had UTI's since. She has a WBC of 15.5, creatine of 2.40, which is stable for her d/t CKD with a GFR of 20. She had a CT abdomen/pelvis today without contrast showing no abnormalities of the upper urinary tracts. Unfortunately her PICC line was infiltrated and an IV was started in the left forearm and she was restarted on IV antibiotics. Her urine culture history is as follows: 02/17/2020 yeast growth, 04/07/2020 Enterococcus, 07/07/2020 Enterobacter, 07/23/2020 Group B strep, 08/26/20 Group B Strep, Klebsiella 04/14/21, Klebsiella 11/17/21 and Enterococcus on 12/06/21. However, her Enterococcus growth on 12/06/21, does appear to be colonized bacteria as the colony count is between 50,000 and 100,000. She states her only symptom is back pain when she gets a UTI. She was having back pain over the past week and thought she had a UTI, but states she otherwise feels good. A repeat urine culture and blood cultures are pending. She is hypotensive but otherwise stable and afebrile. She denies hematuria, dysuria, frequency and urgency. Review of Systems Cardiovascular: Cardiovascular: Denies chest pain Respiratory: Respiratory: Reports no additional respiratory complaints Gastrointestinal: Gastrointestinal: Denies abdominal pain, Denies nausea and Denies vomiting Genitourinary: Genitourinary: Denies hematuria, Denies dysuria, Denies pelvic pain, Denies flank pain and Denies urinary urgency Musculoskeletal: Musculoskeletal: Reports back pain PMFSH Past Medical History Medical History Abdominal aortic aneurysm 3 cm distal abdominal aortic aneurysm Atrial fibrillation Paroxysmal Chronic kidney disease, stage [address] COPD with asthma PFTs February 2018 consistent with COPD/asthma overlap with good bronchodilator response Depression Diverticulitis With perforation status post exploratory laparotomy with colostomy DVT (deep venous thrombosis) Right peroneal october 2019 Frequen
[2021-12-09] MEDS: AMPICILLIN SULB 3 GM/NS 100 ML 3 GM/100 ML VIAL IVPB (21:16)
[2021-12-10] VITALS (12 sets, daily range): BP systolic 109–118; BP diastolic 47–65; PULSE 59–105; RESP 18; TEMP 35.6–37.1; O2SAT 99–100
[2021-12-10] MEDS: SODIUM BICARBONATE 8.4% 150 MEQ in WATER, STERILE FOR INJECTION 950 ML 75 MEQ IV CONT (03:07)
[2021-12-10 07:35] LABS: Basophils Absolute Auto 0.1 K/mm3 (0.0-0.1); Basophils Percent Auto 0.6 % (0.2-1.2); Eosinophils Absolute Auto 0.2 K/mm3 (0-0.3); Eosinophils Percent Auto 1.9 % (0-4.4); Hematocrit 30.2 % (37.0-47.0); Hemoglobin 9.4 g/dL (12.0-15.0); Immature Granulocyte Absolute 0.09 K/mm3 (0.00-0.031); Immature Granulocyte Percent A 0.9 % (0-0.5); Lymphocytes Absolute Auto 2.58 K/mm3 (0.9-3.2); Lymphocytes Percent Auto 24.7 % (18.3-44.2); Mean Corpuscular HGB Conc 31.1 g/dl (32-36); Mean Corpuscular Hemoglobin 30.4 pg (26-34); Mean Corpuscular Volume 97.7 fl (80-100); Mean Platelet Volume 10.4 fl (7.4-10.4); Monocytes Absolute Auto 0.9 K/mm3 (0.1-0.6); Monocytes Percent Auto 8.5 % (2.6-8.5); Neutrophils Absolute Auto 6.6 K/mm3 (1.3-6.7); Neutrophils Percent Auto 63.4 % (45.5-73.1); Platelet Count Result 224 k/mm3 (150-375); Red Blood Count 3.09 M/mm3 (4.2-5.4); Red Cell Distribution Width 13.1 % (11.5-14.5); White Blood Count 10.4 K/mm3 (4.5-10.0)
[2021-12-10 07:46] LABS: Alanine Aminotransferase 24 U/L (4-35); Albumin Level 3.6 g/dL (3.5-5.1); Alkaline Phosphatase 80 U/L (38-126); Anion Gap 10 mmol/L (8-16); Aspartate Amino Transferase 25 U/L (14-36); Bilirubin,Total 0.2 mg/dL (0.2-1.3); Blood Urea Nitrogen 59 mg/dL (7-17); Calcium 7.8 mg/dL (8.4-10.2); Carbon Dioxide 20 mmol/L (22-30); Chloride 104 mmol/L (98-107); Estimated CRCL calculation 17 ml/min; Estimated Glomerular Filt Rate 23; Glucose 96 mg/dL (65-110); Magnesium 1.4 mg/dL (1.6-2.3); Phosphorus 4.1 mg/dL (2.5-4.5); Potassium 3.9 mmol/L (3.4-5.0); Sodium 134 mmol/L (137-145)
[2021-12-10] MEDS: PANTOPRAZOLE 40 MG TABLET PO (09:05)
[2021-12-10] MEDS: APIXABAN 5 MG TABLET PO ×2 (09:05→16:14)
[2021-12-10] MEDS: METOPROLOL SUCCINATE EXT REL 100 MG TABCR PO (09:06)
[2021-12-10] MEDS: AMPICILLIN SULB 3 GM/NS 100 ML 3 GM/100 ML VIAL IVPB (09:08)
--- NOTE | 2021-12-10 10:08 | PM.PNNEP ---
Progress Note: A&P Additional Plan 1. Tiffany has chronic kidney disease. This is from hypertension and vascular disease. She does have a positive serum and urine immunofixation. She probably needs a biopsy at some point. Her baseline creatinine seems to be running between 1.6 and 2.0. 2. The patient has acute kidney injury. Her creatinine is a little higher than it usually runs. She is getting some IV fluid. Her creatinine has improved to its baseline. 3. Hypertension her blood pressure looks okay. 4. UTI the patient will get treatment with ceftazidime. Culture from this admission is still pending 5. History of lung cancer. SHERMAN. Subjective Date/time seen: 12/10/21 10:08 Interval history: Patient feels okay. She has some shortness of breath on exertion but it stable over the last 3 months. No swelling. She is eating well. Review of Systems Cardiovascular: Cardiovascular: Reports no additional cardiovascular complaints Respiratory: Respiratory: Reports no additional respiratory complaints Gastrointestinal: Gastrointestinal: Reports no additional gastrointestinal complaints Genitourinary: Genitourinary: Reports no additional female genitourinary complaints Exam Narrative: WDWN in NAD skin no rash head ncat lungs clear cor reg no rub abd BS+ nontender and soft ext no edema. Objective Data Vital Signs Vital Signs: Vital Signs - 24 hr 12/09/21 10:44 12/09/21 12:00 12/09/21 14:15 Temperature 36.4 C Pulse Rate 88 108 H 85 Respiratory Rate 20 Blood Pressure 108/54 L Pulse Oximetry 100 12/09/21 16:00 12/09/21 20:00 12/09/21 20:04 Temperature Pulse Rate 82 84 Respiratory Rate Blood Pressure Pulse Oximetry 97 12/09/21 20:47 12/10/21 00:00 12/10/21 03:14 Temperature 35.6 C L 35.6 C L Pulse Rate 88 104 H 90 Respiratory Rate 18 18 Blood Pressure 110/49 L 118/47 L Pulse Oximetry 100 100 12/10/21 04:00 12/10/21 09:06 Temperature Pulse Rate 82 80 Respiratory Rate Blood Pressure Pulse Oximetry Intake/Output Intake/Output: Intake & Output 12/07/21 12/08/21 12/09/21 12/10/21 23:59 23:59 23:59 23:59 Intake Total 1060 1730 Output Total 1675 400 Balance -615 1330 Meds/Results Medications: Active Medications Generic Name Dose Route Start Last Admin Trade Name Freq PRN Reason Stop Dose Admin Acetaminophen 650 mg 12/08/21 22:27 Acetaminophen 325 Mg Tablet PO Q4H PRN Mild Pain (1-3) or Fever Apixaban 5 mg 12/09/21 09:00 12/10/21 09:05 Apixaban 5 Mg Tablet PO 5 mg BID GLADIS Administration Sodium Bicarbonate 150 meq/ 1,100 mls @ 75 mls/hr 12/09/21 06:55 12/10/21 03:07 Sterile Water IV CONT 75 mls/hr .[id number] GLADIS Administration Ampicillin Sodium/Sulbactam Sodium 3 gm in 100 mls @ 200 mls/hr 12/09/21 21:00 12/10/21 09:08 Unasyn 3 Gm/Ns 100 Ml IVPB 200 mls/hr Q12HR GLADIS Administration Metoprolol Succinate 100 mg 12/09/21 09:00 12/10/21 09:06 Metoprolol Succinate Ext Rel 100 Mg Tabcr PO 100 mg QAM GLADIS Administration Miconazole Nitrate 1 applic 12/09/21 09:00 12/10/21 09:06 Miconazole 2% Antifungal Ointment 56 Gm TOPICAL 1 applic Q12HR GLADIS Administration Ondansetron HCl 4 mg 12/08/21 22:27 Ondansetron Inj 4 Mg/2 Ml Vial IV PUSH Q4H PRN Nausea Pantoprazole Sodium 40 mg 12/09/21 09:00 12/10/21 09:05 Pantoprazole 40 Mg Tablet PO 40 mg QAM GLADIS Administration Tramadol HCl 50 mg 12/09/21 09:35 Tramadol Hcl (*Crx) 50 Mg Tablet PO Q6H PRN PAIN 4-10 Radiology Results: ITS Impressions Abdomen/Pelvis CT 12/09/21 11:57 IMPRESSION: 1. No CT correlate for the patient's symptoms. 2. Apparent small hematoma of the right groin with adjacent soft tissue gas. Correlate for history of attempted catheter insertion. Consider targeted ultrasound to evaluate for pseudoaneurysm. Venous Doppler Study 12/09/21 12:1
--- NOTE | 2021-12-10 12:15 | PM.IMPN ---
Progress Note: A&P Assessment and Plan (1) Frequent UTI: Code(s): N39.0 - Urinary tract infection, site not specified Status: Inactive Assessment and Plan: Looks like she grew Enterococcus on 12/06/21 Just finished a course of cefepime for 10 days Urine culture Enterococcus Adjust antibiotics as indicated Change antibiotic to ampicillin due to last result, changed to PO ampicillin WBC elevated at 10.4 Continue to trend labs (2) Acute on chronic kidney failure: Code(s): N17.9 - Acute kidney failure, unspecified; N18.9 - Chronic kidney disease, unspecified Status: Acute Assessment and Plan: Current BUN/Cr 59/2.10 Baseline seems to be 1.60-3.00 Trend labs Avoid nephrotoxic medications Nephrology consulted thank your help Could be related to infection or dehydration (3) Atrial fibrillation: Qualifiers: Atrial fibrillation type: paroxysmal Qualified Code(s): I48.0 - Paroxysmal atrial fibrillation Code(s): I48.91 - Unspecified atrial fibrillation Status: Chronic Assessment and Plan: Known history of afib Currently in Sinus Rhythm Continue Eliquis BID, and metoprolol (4) Hypertension: Qualifiers: Hypertension type: other secondary hypertension Qualified Code(s): I15.8 - Other secondary hypertension Code(s): I10 - Essential (primary) hypertension Status: Chronic Assessment and Plan: BP stable 118/47 Continue metoprolol 100mg PO Daily Trend Blood pressure Adjust therapy as indicated (5) Shortness of breath: Code(s): R06.02 - Shortness of breath Status: Acute Assessment and Plan: Reports increased shortness of breath with activity Chest xray No acute cardiopulmonary abnormality. Could be some type of fluid volume status or it could be from the lobectomy Last echo indicates normal systolic and diastolic function with an EF of 60% Consider lasix (6) Hyperkalemia: Code(s): E87.5 - Hyperkalemia Status: Acute Assessment and Plan: Looks like her potassium was 5.90 upon admission, currently 3.9 today Continue to trend labs Labs in the am Supplement as indicated (7) History of DVT (deep vein thrombosis): Code(s): Z86.718 - Personal history of other venous thrombosis and embolism Status: Acute Assessment and Plan: Stated that she has a DVT in the right arm Venous Doppler No evidence of deep venous thrombosis. Continue Eliquis Time Spent With Patient Time with patient: Greater than 35 minutes Subjective Date/time seen: 12/10/21 12:15 Interval history: Date/Time: 12/09/21 07:45 Narrative: Patient is 76 female with quite extensive history AFib, DVT, hypertension depression, colectomy with ileostomy, UTIs, CKD and anemia who presented to the ED for evaluation of hyperkalemia and UTI. Patient stated that she was just recently here and completed IV antibiotics at home. Patient stated that her last dose of IV antibiotics was Monday. Patient stated that she usually knows when she is going to have UTI because her back starts to hurt and she has been having a back ache. She cannot tell me when her back it started however she stated with the events that have happened it seems as the likely cause. Patient stated that her pain is in the lumbar region and radiates across. She also stated that she was told she had blood in her urine however she does not have any hematuria. She does feel like she fully empties and she denies any for urgency or frequency. Patient states that she uses depends especially when she leaves the house however she does not use depends when she is at home. She stated that she has been going out more lately due to extensive doctor visits. She also states that she does not wear depends when she is at home because it push on her ostomy bag. She has stated that she
--- NOTE | 2021-12-10 12:15 | P.PNIM_ITS ---
Progress Note: A&P Assessment and Plan (1) Frequent UTI: Code(s): N39.0 - Urinary tract infection, site not specified Status: Inactive Assessment and Plan: * Looks like she grew Enterococcus on 12/06/21 * Just finished a course of cefepime for 10 days * Urine culture Enterococcus * Adjust antibiotics as indicated * Change antibiotic to ampicillin due to last result, changed to PO ampicillin * WBC elevated at 10.4 * Continue to trend labs (2) Acute on chronic kidney failure: Code(s): N17.9 - Acute kidney failure, unspecified; N18.9 - Chronic kidney disease, unspecified Status: Acute Assessment and Plan: * Current BUN/Cr 59/2.10 * Baseline seems to be 1.60-3.00 * Trend labs * Avoid nephrotoxic medications * Nephrology consulted thank your help * Could be related to infection or dehydration (3) Atrial fibrillation: Qualifiers: Atrial fibrillation type: paroxysmal Qualified Code(s): I48.0 - Paroxysmal atrial fibrillation Code(s): I48.91 - Unspecified atrial fibrillation Status: Chronic Assessment and Plan: * Known history of afib * Currently in Sinus Rhythm * Continue Eliquis BID, and metoprolol (4) Hypertension: Qualifiers: Hypertension type: other secondary hypertension Qualified Code(s): I15.8 - Other secondary hypertension Code(s): I10 - Essential (primary) hypertension Status: Chronic Assessment and Plan: * BP stable 118/47 * Continue metoprolol 100mg PO Daily * Trend Blood pressure * Adjust therapy as indicated (5) Shortness of breath: Code(s): R06.02 - Shortness of breath Status: Acute Assessment and Plan: * Reports increased shortness of breath with activity * Chest xray No acute cardiopulmonary abnormality. * Could be some type of fluid volume status or it could be from the lobectomy * Last echo indicates normal systolic and diastolic function with an EF of 60% * Consider lasix (6) Hyperkalemia: Code(s): E87.5 - Hyperkalemia Status: Acute Assessment and Plan: * Looks like her potassium was 5.90 upon admission, currently 3.9 today * Continue to trend labs * Labs in the am * Supplement as indicated (7) History of DVT (deep vein thrombosis): Code(s): Z86.718 - Personal history of other venous thrombosis and embolism Status: Acute Assessment and Plan: * Stated that she has a DVT in the right arm * Venous Doppler No evidence of deep venous thrombosis. * Continue Eliquis Time Spent With Patient Time with patient: Greater than 35 minutes Subjective Date/time seen: 12/10/21 12:15 Interval history: Date/Time: 12/09/21 07:45 Narrative: Patient is 76 female with quite extensive history AFib, DVT, hypertension depression, colectomy with ileostomy, UTIs, CKD and anemia who presented to the ED for evaluation of hyperkalemia and UTI. Patient stated that she was just recently here and completed IV antibiotics at home. Patient stated that her last dose of IV antibiotics was Monday. Patient stated that she usually knows when she is going to have UTI because her back starts to hurt and she has been having a back ache. She cannot tell me when her back it started however she stated with the events that have happened it seems as the likely cause. Patient stated that her pain is in the lumbar region and radiates across. She also
[2021-12-10] MEDS: MAGNESIUM SULF 4 GM/WATER100ML 4 GM/100 ML BAG IVPB (14:37)
[2021-12-10] MEDS: SODIUM BICARBONATE TAB 650 MG TABLET 1300 MG PO (16:14)
[2021-12-10] MEDS: AMPICILLIN TRIHYDRATE 500 MG CAPSULE PO (20:11)
[2021-12-11] VITALS: PULSE 84
[2021-12-11 03:56] VITALS: BP 108/48; PULSE 83; RESP 18; TEMP 35.9; O2SAT 100
[2021-12-11 04:00] VITALS: PULSE 119
[2021-12-11 07:15] LABS: Basophils Absolute Auto 0.1 K/mm3 (0.0-0.1); Basophils Percent Auto 0.5 % (0.2-1.2); Eosinophils Absolute Auto 0.2 K/mm3 (0-0.3); Eosinophils Percent Auto 2.5 % (0-4.4); Hematocrit 27.1 % (37.0-47.0); Hemoglobin 8.9 g/dL (12.0-15.0); Immature Granulocyte Absolute 0.06 K/mm3 (0.00-0.031); Immature Granulocyte Percent A 0.6 % (0-0.5); Lymphocytes Absolute Auto 1.85 K/mm3 (0.9-3.2); Lymphocytes Percent Auto 19.8 % (18.3-44.2); Mean Corpuscular HGB Conc 32.8 g/dl (32-36); Mean Corpuscular Volume 94.4 fl (80-100); Mean Platelet Volume 10.6 fl (7.4-10.4); Monocytes Absolute Auto 0.8 K/mm3 (0.1-0.6); Neutrophils Absolute Auto 6.3 K/mm3 (1.3-6.7); Neutrophils Percent Auto 67.6 % (45.5-73.1); Platelet Count Result 206 k/mm3 (150-375); Red Blood Count 2.87 M/mm3 (4.2-5.4); Red Cell Distribution Width 12.9 % (11.5-14.5); White Blood Count 9.3 K/mm3 (4.5-10.0)
[2021-12-11 07:22] LABS: Alanine Aminotransferase 23 U/L (4-35); Albumin Level 3.6 g/dL (3.5-5.1); Alkaline Phosphatase 80 U/L (38-126); Anion Gap 7 mmol/L (8-16); Aspartate Amino Transferase 27 U/L (14-36); Bilirubin,Total 0.3 mg/dL (0.2-1.3); Blood Urea Nitrogen 49 mg/dL (7-17); Calcium 7.7 mg/dL (8.4-10.2); Carbon Dioxide 29 mmol/L (22-30); Chloride 100 mmol/L (98-107); Estimated CRCL calculation 21 ml/min; Estimated Glomerular Filt Rate 29; Glucose 94 mg/dL (65-110); Magnesium 2.8 mg/dL (1.6-2.3); Phosphorus 3.1 mg/dL (2.5-4.5); Potassium 3.9 mmol/L (3.4-5.0); Sodium 136 mmol/L (137-145)
[2021-12-11 08:00] VITALS: PULSE 102
[2021-12-11 09:03] VITALS: PULSE 119
[2021-12-11] MEDS: PANTOPRAZOLE 40 MG TABLET PO (09:03)
[2021-12-11] MEDS: SODIUM BICARBONATE TAB 650 MG TABLET 1300 MG PO (09:03)
[2021-12-11] MEDS: AMPICILLIN TRIHYDRATE 500 MG CAPSULE PO (09:03)
[2021-12-11] MEDS: APIXABAN 5 MG TABLET PO (09:03)
[2021-12-11] MEDS: METOPROLOL SUCCINATE EXT REL 100 MG TABCR PO (09:03)
--- NOTE | 2021-12-11 10:30 | P.DS_ITS ---
DS: Admitting Diagnosis Discharge Date 12/11/21 1030 Admitting Diagnosis Acute UTI DS: Discharge Diagnosis Discharge Diagnosis (1) Frequent UTI: Code(s): N39.0 - Urinary tract infection, site not specified Status: Inactive Assessment and Plan: * Looks like she grew Enterococcus on 12/06/21 * Just finished a course of cefepime for 10 days * Urine culture Enterococcus * Adjust antibiotics as indicated * Change antibiotic to ampicillin due to last result, changed to PO ampicillin * WBC elevated at 9.3 * Sensitivities support ampicillin * Continue to trend labs (2) Acute on chronic kidney failure: Code(s): N17.9 - Acute kidney failure, unspecified; N18.9 - Chronic kidney disease, unspecified Status: Acute Assessment and Plan: * Current BUN/Cr 49/1.70 * Baseline seems to be 1.60-3.00 * Trend labs * Avoid nephrotoxic medications * Nephrology consulted thank your help * Could be related to infection or dehydration (3) Atrial fibrillation: Qualifiers: Atrial fibrillation type: paroxysmal Qualified Code(s): I48.0 - Paroxysmal atrial fibrillation Code(s): I48.91 - Unspecified atrial fibrillation Status: Chronic Assessment and Plan: * Known history of afib * Currently in Sinus Rhythm * Continue Eliquis BID, and metoprolol (4) Hypertension: Qualifiers: Hypertension type: other secondary hypertension Qualified Code(s): I15.8 - Other secondary hypertension Code(s): I10 - Essential (primary) hypertension Status: Chronic Assessment and Plan: * BP stable 108/48 * Continue metoprolol 100mg PO Daily * Trend Blood pressure * Adjust therapy as indicated (5) Shortness of breath: Code(s): R06.02 - Shortness of breath Status: Acute Assessment and Plan: * Reports increased shortness of breath with activity * Chest xray No acute cardiopulmonary abnormality. * Could be some type of fluid volume status or it could be from the lobectomy * Last echo indicates normal systolic and diastolic function with an EF of 60% * Consider lasix (6) Hyperkalemia: Code(s): E87.5 - Hyperkalemia Status: Acute Assessment and Plan: * Looks like her potassium was 5.90 upon admission, currently 3.9 today * Continue to trend labs * Labs in the am * Supplement as indicated (7) History of DVT (deep vein thrombosis): Code(s): Z86.718 - Personal history of other venous thrombosis and embolism Status: Acute Assessment and Plan: * Stated that she has a DVT in the right arm * Venous Doppler No evidence of deep venous thrombosis. * Continue Te DS: Summary Hospital Course Hospital Course: Patient is a 69 female with a past history of AFib, DVT, hypertension, depression, colectomy with ileostomy, UTI and CKD presented the ED with evaluation hyperkalemia and TI. Patient stated that she was physician's office when they told her to the ER. Upon arrival patient did have leukocytosis with elevated white count. UA did look suspicious for UTI and urine culture confirmed with Enterococcus species. Patient was started on ampicillin and white blood cell count has been trending down. Nephrology was consulted due to renal failure which has resolved at this time. Patient has been stable with potassium. Patient's potassium was 5.9 upon admission and has gone down to 3.9 today.
--- NOTE | 2021-12-11 10:30 | PM.DS ---
DS: Admitting Diagnosis Discharge Date 12/11/21 1030 Admitting Diagnosis Acute UTI DS: Discharge Diagnosis Discharge Diagnosis (1) Frequent UTI: Code(s): N39.0 - Urinary tract infection, site not specified Status: Inactive Assessment and Plan: Looks like she grew Enterococcus on 12/06/21 Just finished a course of cefepime for 10 days Urine culture Enterococcus Adjust antibiotics as indicated Change antibiotic to ampicillin due to last result, changed to PO ampicillin WBC elevated at 9.3 Sensitivities support ampicillin Continue to trend labs (2) Acute on chronic kidney failure: Code(s): N17.9 - Acute kidney failure, unspecified; N18.9 - Chronic kidney disease, unspecified Status: Acute Assessment and Plan: Current BUN/Cr 49/1.70 Baseline seems to be 1.60-3.00 Trend labs Avoid nephrotoxic medications Nephrology consulted thank your help Could be related to infection or dehydration (3) Atrial fibrillation: Qualifiers: Atrial fibrillation type: paroxysmal Qualified Code(s): I48.0 - Paroxysmal atrial fibrillation Code(s): I48.91 - Unspecified atrial fibrillation Status: Chronic Assessment and Plan: Known history of afib Currently in Sinus Rhythm Continue Eliquis BID, and metoprolol (4) Hypertension: Qualifiers: Hypertension type: other secondary hypertension Qualified Code(s): I15.8 - Other secondary hypertension Code(s): I10 - Essential (primary) hypertension Status: Chronic Assessment and Plan: BP stable 108/48 Continue metoprolol 100mg PO Daily Trend Blood pressure Adjust therapy as indicated (5) Shortness of breath: Code(s): R06.02 - Shortness of breath Status: Acute Assessment and Plan: Reports increased shortness of breath with activity Chest xray No acute cardiopulmonary abnormality. Could be some type of fluid volume status or it could be from the lobectomy Last echo indicates normal systolic and diastolic function with an EF of 60% Consider lasix (6) Hyperkalemia: Code(s): E87.5 - Hyperkalemia Status: Acute Assessment and Plan: Looks like her potassium was 5.90 upon admission, currently 3.9 today Continue to trend labs Labs in the am Supplement as indicated (7) History of DVT (deep vein thrombosis): Code(s): Z86.718 - Personal history of other venous thrombosis and embolism Status: Acute Assessment and Plan: Stated that she has a DVT in the right arm Venous Doppler No evidence of deep venous thrombosis. Continue Te DS: Summary Hospital Course Hospital Course: Patient is a 69 female with a past history of AFib, DVT, hypertension, depression, colectomy with ileostomy, UTI and CKD presented the ED with evaluation hyperkalemia and TI. Patient stated that she was physician's office when they told her to the ER. Upon arrival patient did have leukocytosis with elevated white count. UA did look suspicious for UTI and urine culture confirmed with Enterococcus species. Patient was started on ampicillin and white blood cell count has been trending down. Nephrology was consulted due to renal failure which has resolved at this time. Patient has been stable with potassium. Patient's potassium was 5.9 upon admission and has gone down to 3.9 today. Patient denies any other issues like chest pain, shortness a breath, nausea, vomiting, diarrhea constipation, weakness or urinary dysfunction. Patient is stable for discharge at this time per labs and vital signs. Status at Discharge Functional status at discharge: uses cane/walker Overall status at discharge: patient is progressing back to baseline Time Spent with Patient Time attestation: Total time spent providing and/or coordinating discharge services: 36 minutes Time spent: Greater than 30 minutes Specific
== END 2021-12-11 11:40 | disposition home or self-care (01) ==
LOC: ANHED 23:13 → ANH2MED 12-09 02:42
PROVIDERS: Internal Medicine Nephrology; Admitting Provider Internal Medicine; Emergency Provider Emergency Medicine; PCP Family Medicine; Visit Provider Nurse Practitioner
DX: E87.5 Hyperkalemia (principal); N39.0 Urinary tract infection, site not specified; N17.9 Acute kidney failure, unspecified; B95.2 Enterococcus as the cause of diseases classified elsewhere; Z20.822 Contact with and (suspected) exposure to COVID-19; D63.1 Anemia in chronic kidney disease; I48.91 Unspecified atrial fibrillation; I12.9 Hypertensive chronic kidney disease with stage 1 through stage 4 chronic kidney disease, or unspecified chronic kidney disease; N18.30 Chronic kidney disease, stage 3 unspecified; I71.4 Abdominal aortic aneurysm, without rupture; J44.9 Chronic obstructive pulmonary disease, unspecified; R06.02 Shortness of breath; Z85.118 Personal history of other malignant neoplasm of bronchus and lung; Z90.49 Acquired absence of other specified parts of digestive tract; Z86.718 Personal history of other venous thrombosis and embolism; Z93.2 Ileostomy status; Z90.2 Acquired absence of lung [part of]; Z98.42 Cataract extraction status, left eye; Z98.41 Cataract extraction status, right eye; Z96.1 Presence of intraocular lens; Z87.891 Personal history of nicotine dependence; Z79.01 Long term (current) use of anticoagulants
CPT/HCPCS: 36415; 36556; 71046; 74176; 80053; 81001; 83605; 83735; 84100; 84484; 85025; 85610; 85730; 87040; 87086; 87147; 87181; 87186; 93005; 93970; 96365; 96366; 96367; 96368; 96375; 96376; 99285; A9270; C1751; C9803; G0378; J0295; J0713; J3475; U0003; U0005

== ENCOUNTER 2021-12-16 15:32 | Outpatient (CLI) | payer OTHER, SELFPAY ==
[2021-12-16 15:48] LABS: Basophils Absolute Auto 0.1 K/mm3 (0.0-0.1); Basophils Percent Auto 0.6 % (0.2-1.2); Eosinophils Absolute Auto 0.3 K/mm3 (0-0.3); Hemoglobin 9.9 g/dL (12.0-15.0); Immature Granulocyte Absolute 0.11 K/mm3 (0.00-0.031); Immature Granulocyte Percent A 0.8 % (0-0.5); Lymphocytes Percent Auto 22.9 % (18.3-44.2); Mean Corpuscular HGB Conc 31.9 g/dl (32-36); Mean Corpuscular Volume 97.2 fl (80-100); Mean Platelet Volume 10.1 fl (7.4-10.4); Monocytes Absolute Auto 1.1 K/mm3 (0.1-0.6); Monocytes Percent Auto 8.1 % (2.6-8.5); Neutrophils Absolute Auto 9.2 K/mm3 (1.3-6.7); Neutrophils Percent Auto 65.6 % (45.5-73.1); Platelet Count Result 273 k/mm3 (150-375); Red Blood Count 3.19 M/mm3 (4.2-5.4); Red Cell Distribution Width 12.8 % (11.5-14.5)
== END 2021-12-16 15:33 | disposition home or self-care (01) ==
PROVIDERS: PCP Family Medicine; Visit Provider Nurse Practitioner Family
DX: N18.4 Chronic kidney disease, stage 4 (severe) (principal); D64.9 Anemia, unspecified
CPT/HCPCS: 36415; 85025

== ENCOUNTER 2021-12-27 11:14 | Outpatient (CLI) | payer OTHER, SELFPAY ==
[2021-12-27 11:55] LABS: Alanine Aminotransferase 28 U/L (6-35); Albumin Level 4.8 g/dL (3.5-5.1); Alkaline Phosphatase 87 U/L (38-126); Anion Gap 11 mmol/L (8-16); Aspartate Amino Transferase 30 U/L (14-36); Bilirubin,Total 0.2 mg/dL (0.2-1.3); Blood Urea Nitrogen 47 mg/dL (7-17); Calcium 8.8 mg/dL (8.4-10.2); Carbon Dioxide 21 mmol/L (22-30); Chloride 102 mmol/L (98-107); Estimated Glomerular Filt Rate 20; Glucose 108 mg/dL (65-110); Potassium 5.9 mmol/L (3.4-5.0); Sodium 134 mmol/L (137-145)
== END 2021-12-27 11:15 | disposition home or self-care (01) ==
LOC: ANHLAB 11:18
PROVIDERS: PCP Family Medicine; Visit Provider Nurse Practitioner Family
DX: N17.9 Acute kidney failure, unspecified (principal); N18.9 Chronic kidney disease, unspecified
CPT/HCPCS: 36415; 80053

== ENCOUNTER 2021-12-31 10:24 | Outpatient (CLI) | payer OTHER, SELFPAY ==
[2021-12-31 10:47] LABS: Basophils Absolute Auto 0.1 K/mm3 (0.0-0.1); Basophils Percent Auto 0.8 % (0.2-1.2); Eosinophils Absolute Auto 0.2 K/mm3 (0-0.3); Eosinophils Percent Auto 1.8 % (0-4.4); Hematocrit 31.2 % (37.0-47.0); Hemoglobin 10.2 g/dL (12.0-15.0); Immature Granulocyte Percent A 0.9 % (0-0.5); Lymphocytes Absolute Auto 1.87 K/mm3 (0.9-3.2); Lymphocytes Percent Auto 17.6 % (18.3-44.2); Mean Corpuscular HGB Conc 32.7 g/dl (32-36); Mean Corpuscular Hemoglobin 30.8 pg (26-34); Mean Corpuscular Volume 94.3 fl (80-100); Mean Platelet Volume 10.1 fl (7.4-10.4); Monocytes Absolute Auto 0.8 K/mm3 (0.1-0.6); Monocytes Percent Auto 7.7 % (2.6-8.5); Neutrophils Absolute Auto 7.6 K/mm3 (1.3-6.7); Neutrophils Percent Auto 71.2 % (45.5-73.1); Platelet Count Result 243 k/mm3 (150-375); Red Blood Count 3.31 M/mm3 (4.2-5.4); Red Cell Distribution Width 12.4 % (11.5-14.5); White Blood Count 10.6 K/mm3 (4.5-10.0)
[2021-12-31 11:04] LABS: Appearance Urine Clear (Clear); Bacteria Urine Trace /hpf; Color Urine Yellow (Yellow); Mucus Urine Rare /lpf; RBC Urine 0-2 /hpf (0-2); Squamous Epithelial Cell Urine Few /hpf (Few)
[2021-12-31 11:05] LABS: Add Urine Microscopic? YES; Bilirubin Urine Negative (Negative); Blood Urine Negative (Negative); Glucose Urine UA Negative (Negative); Ketones Urine Negative (Negative); Leukocyte Esterase Ur 1+ LEU/UL (NEGATIVE); Nitrate Urine Negative (Negative); Protein Urine Negative (Negative); Specific Grav Ur 1.015 (1.001-1.035); Urobilinogen Urine 0.2 mg/dL (<2.0); pH Urine 5.5 (5.0-9.0)
== END 2021-12-31 10:25 | disposition home or self-care (01) ==
LOC: ANHLAB 10:25
PROVIDERS: PCP Family Medicine; Visit Provider Nurse Practitioner Family
DX: E87.5 Hyperkalemia (principal); N17.9 Acute kidney failure, unspecified; N39.0 Urinary tract infection, site not specified
CPT/HCPCS: 36415; 81001; 85025; 87086

== ENCOUNTER 2022-02-11 13:47 | Outpatient (CLI) | payer OTHER, SELFPAY ==
[2022-02-11 14:13] LABS: Alanine Aminotransferase 31 U/L (6-35); Alkaline Phosphatase 97 U/L (38-126); Anion Gap 11 mmol/L (8-16); Aspartate Amino Transferase 26 U/L (14-36); Bilirubin,Total 0.2 mg/dL (0.2-1.3); Blood Urea Nitrogen 41 mg/dL (7-17); Calcium 8.2 mg/dL (8.4-10.2); Carbon Dioxide 11 mmol/L (22-30); Chloride 114 mmol/L (98-107); Estimated Glomerular Filt Rate 19; Glucose 109 mg/dL (65-110); Potassium 4.6 mmol/L (3.4-5.0); Sodium 136 mmol/L (137-145)
== END 2022-02-11 13:48 | disposition home or self-care (01) ==
LOC: ANHLAB 13:48
PROVIDERS: PCP Family Medicine; Visit Provider Physician Assistant
DX: E87.5 Hyperkalemia (principal)
CPT/HCPCS: 36415; 80053

== ENCOUNTER 2022-02-24 11:39 | Outpatient (CLI) | payer OTHER, SELFPAY ==
[2022-02-24 12:20] LABS: Albumin Level 4.2 g/dL (3.5-5.1); Anion Gap 14 mmol/L (8-16); Blood Urea Nitrogen 43 mg/dL (7-17); Calcium 8.9 mg/dL (8.4-10.2); Carbon Dioxide 11 mmol/L (22-30); Chloride 112 mmol/L (98-107); Estimated Glomerular Filt Rate 24; Glucose 137 mg/dL (65-110); Phosphorus 4.8 mg/dL (2.5-4.5); Potassium 4.7 mmol/L (3.4-5.0); Sodium 137 mmol/L (137-145)
== END 2022-02-24 11:40 | disposition home or self-care (01) ==
LOC: ANHLAB 11:42
PROVIDERS: PCP Family Medicine; Visit Provider Internal Medicine Nephrology
DX: N18.4 Chronic kidney disease, stage 4 (severe) (principal)
CPT/HCPCS: 36415; 80069

== ENCOUNTER 2022-03-16 11:15 | Outpatient (CLI) | payer OTHER, SELFPAY ==
[2022-03-16 11:43] LABS: Appearance Urine Clear (Clear); Bilirubin Urine Negative (Negative); Blood Urine Negative (Negative); Color Urine Yellow (Yellow); Glucose Urine UA Negative (Negative); Ketones Urine Negative (Negative); Leukocyte Esterase Ur 1+ LEU/UL (NEGATIVE); Nitrate Urine Negative (Negative); Protein Urine Negative (Negative); Specific Grav Ur 1.015 (1.001-1.035); Urobilinogen Urine 0.2 mg/dL (<2.0)
[2022-03-16 11:46] LABS: Add Urine Microscopic? YES
[2022-03-16 11:52] LABS: Bacteria Urine Trace /hpf; Mucus Urine Rare /lpf; RBC Urine 0-2 /hpf (0-2); Squamous Epithelial Cell Urine Rare /hpf (Few)
[2022-03-16 16:49] LABS: Alanine Aminotransferase 29 U/L (6-35); Albumin Level 4.2 g/dL (3.5-5.1); Alkaline Phosphatase 97 U/L (38-126); Anion Gap 14 mmol/L (8-16); Aspartate Amino Transferase 26 U/L (14-36); Bilirubin,Total 0.3 mg/dL (0.2-1.3); Blood Urea Nitrogen 37 mg/dL (7-17); Carbon Dioxide 11 mmol/L (22-30); Chloride 101 mmol/L (98-107); Estimated Glomerular Filt Rate 23; Glucose 96 mg/dL (65-110); Potassium 4.8 mmol/L (3.4-5.0); Sodium 126 mmol/L (137-145)
== END 2022-03-16 11:16 | disposition home or self-care (01) ==
LOC: ANHLAB 11:16
PROVIDERS: PCP Family Medicine; Visit Provider Nurse Practitioner Family
DX: N39.0 Urinary tract infection, site not specified (principal); E87.5 Hyperkalemia
CPT/HCPCS: 36415; 80053; 81001; 87086; 87088

== ENCOUNTER 2022-03-21 09:10 | Outpatient (CLI) | payer OTHER, SELFPAY ==
--- NOTE | ~2022-03-21 | CT_ITS ---
EXAMINATION: CT diagnostic chest wo con DATE: 03/21/2022 09:37 INDICATION: Shortness of breath. Hypoxia. TECHNIQUE: Computed tomography (CT) of the chest was performed without intravenous contrast. The dose -length product was 161.27 mGy-cm. COMPARISON: CT dated 02/08/2018 FINDINGS: No significant pleural or pericardial effusion. Status post partial left pneumonectomy. Int erval resection of left upper lobe mass since prior examination. No thoracic lymphadenopathy. There i s atherosclerosis of the aorta and coronary arteries. Status post cholecystectomy. No focal airspace disease. No pneumothorax. No suspicious pulmonary nodules or masses. No focal lytic or blastic lesion s. IMPRESSION: 1. No acute cardiopulmonary disease. Reviewed, dictated and finalized at location B.
[2022-03-21 10:05] VITALS: PULSE 80; O2SAT 100
[2022-03-21 10:10] VITALS: PULSE 108; O2SAT 99
[2022-03-21 10:20] VITALS: PULSE 84; O2SAT 100
[2022-03-21 10:21] LABS: Alveolar/Arterial O2 Gradient 27.6 mmHg; Base Excess ABG -9.9 mEq/l (+/-2.0); Carboxyhemoglobin 0.3 % THb (0-2.0); Fractional Inspired Oxygen 21 %; Methemoglobin ABG 0.2 %THb (0-1.5); Oxygen Content ABG 15.4 %vol (16.0-22.0); Oxygen Saturation ABG 95.9 % (95.0-100.0); Oxyhemoglobin 96.1 % THb (90.0-100.0); PCO2 ABG 30.1 mmHg (35.0-45.0); PO2 ABG 86.1 mmHg (80.0-100.0); Reduced Hemoglobin 3.4 %THb (0-5.0); Total Hemoglobin 11.3 g/dL (12.0-18.0); pH ABG 7.316 (7.350-7.450)
[2022-03-21 10:23] LABS: Device ROOM AIR; Modified Allen's Test Pass; Site Drawn LEFT RADIAL
--- NOTE | 2022-03-21 11:09 | HOMEO2EVAL ---
Evaluation was performed at [facility] Home Oxygen Evaluation RC: Home Oxygen (O2) Evaluation Start: 03/21/22 11:07 Freq: Status: Active Protocol: RPE Activity Type Activity Date Activity User E-sign Co-sign Detail Recorded Client Recorded Date Recorded By Document 03/21/22 10:05 DJO [email or web address] 03/21/22 11:08 DJO Document 03/21/22 10:10 [email or web address] [email or web address] 03/21/22 11:08 DJO Document 03/21/22 10:20 [email or web address] [email or web address] 03/21/22 11:08 DJO 03/21/22 03/21/22 03/21/22 10:05 10:10 10:20 Home O2 Evaluation Test Phase Resting Exercise Resting Oxygen Delivery Room Air Room Air Room Air Pulse Oximetry (90-100 %) 100 99 100 Pulse Rate (60-100 beats/min) 80 108 H 84 Activity Tolerance Good Rating of Perceived Dyspnea (PD) +1 Mild, Noticeable to the Participant but Not to an Observer Ambulation Distance (feet) 750 Ambulation Distance (meters) 228.58 Treatment Charges O2 Evaluation - Outpatient
--- NOTE | 2022-03-23 14:42 | P.PCNPFT_ITS ---
PFT Procedure Performed PFT Procedure Performed Spirometry with Pre/Post Bronchodilator Plethysmography (Lung Vol) Diffusing Cap (DLCO) Flow Vol Loop PFT Interpretation Lung volumes were measured with the body plethysmography method. The diminished lung volumes are indicative of restrictive respiratory disease. Spirometry showed diminished expiratory flow rates and a diminished FEV1 to FVC ratio 58% consistent with superimposed obstructive airway disease. Following administration of a bronchodilator there was no significant increase in expiratory flow rates. Lung diffusion capacity is severely reduced at 44% predicted. Impression: Combined restrictive respiratory and obstructive airway disease wit h no response to bronchodilators on this testing. Severely reduced lung diffusion capacity.
== END 2022-03-21 09:11 | disposition home or self-care (01) ==
PROVIDERS: PCP Family Medicine; Visit Provider Internal Medicine Pulmonary Disease
DX: R06.02 Shortness of breath (principal); Z85.118 Personal history of other malignant neoplasm of bronchus and lung; R06.00 Dyspnea, unspecified
CPT/HCPCS: 36600; 71250; 82375; 82805; 83050; 94060; 94618; 94726; 94729

== ENCOUNTER 2022-03-30 11:05 | Outpatient (CLI) | payer OTHER, SELFPAY ==
[2022-03-30 11:51] LABS: Creatinine Urine 70.3 mg/dL; Total Protein Urine Random 12 mg/dL; Ur Ttl Prot Creatinine Ratio 0.17 mg/mg (0-0.20)
[2022-03-30 11:57] LABS: Parathyroid Intact 96.7 pg/mL (7.5-53.5)
[2022-03-30 12:11] LABS: Albumin Level 4.3 g/dL (3.5-5.1); Anion Gap 14 mmol/L (8-16); Blood Urea Nitrogen 40 mg/dL (7-17); Calcium 8.2 mg/dL (8.4-10.2); Carbon Dioxide 12 mmol/L (22-30); Chloride 104 mmol/L (98-107); Estimated Glomerular Filt Rate 26; Glucose 107 mg/dL (65-110); Phosphorus 4.7 mg/dL (2.5-4.5); Potassium 5.3 mmol/L (3.4-5.0); Sodium 130 mmol/L (137-145)
[2022-03-30 12:49] LABS: Vitamin D 25 Hydroxy 30.8 ng/mL
== END 2022-03-30 11:06 | disposition home or self-care (01) ==
PROVIDERS: PCP Family Medicine; Visit Provider Internal Medicine Nephrology
DX: I12.9 Hypertensive chronic kidney disease with stage 1 through stage 4 chronic kidney disease, or unspecified chronic kidney disease (principal); N18.4 Chronic kidney disease, stage 4 (severe); E55.9 Vitamin D deficiency, unspecified; N25.1 Nephrogenic diabetes insipidus
CPT/HCPCS: 36415; 80069; 82306; 82570; 83970; 84156